=== PATIENT | male | born 1980 | race Caucasian/White ===

== ENCOUNTER 2024-05-06 21:31 | Emergency (ER) | payer OTHER, SELFPAY ==
[2024-05-06 21:40] VITALS: BP 120/76; PULSE 98; RESP 16; TEMP 36.7; O2SAT 98; BMI 34.2
[2024-05-06 22:00] VITALS: BP 129/91; PULSE 88; O2SAT 97
--- NOTE | 2024-05-06 22:17 | HMH.EDGENADL ---
Discharge Plan Disposition Patient Disposition: Home, Self-Care Chief Complaint: Skin/Abscess/Foreign Body Prescriptions Prescriptions: No Action metformin 500 mg tablet 500 mg PO BID 30 Days Qty: 60 Patient Comments: indomethacin 50 mg capsule 50 mg PO TID Qty: 60 0RF Rx Instructions: administer with food or milk. Take Medication until symptoms resolve. Referrals Follow up/Referrals: Provider,Referral, [Primary Care Provider] - See instructions Josy West DPM [Staff Physician] - See instructions Activity Restrictions/Add. Instructions Additional Instructions/Restrictions: Call your family doctor to establish care for this visit to the emergency department and schedule follow-up within 48 hours to ensure improvement. If you have any worsening of your condition or any other concerning signs or symptoms, return to the emergency department or your primary care doctor for further evaluation. Follow-up with Dr. West for your foot. Clinical Impressions Clinical Impression: Injury of foot, left Instructions Patient Instructions: DI for Skin Abscess Print Language Print Language: Venezuelan Discharge ED Provider: Levi Weinstein General Adult HPI General Chief complaint: Skin/Abscess/Foreign Body Stated complaint: AO 10-9 left foot cut Time Seen by Provider: 05/06/24 21:36 Mode of Arrival: Ambulatory Source of Information: Patient Limitations: No Limitations Description of Symptoms (Recalled from ER Triage Doc. by RN): Patient report on Wednesday night he was walking in the house. Hit foot on bed post, Small open area to bottom of 4 th toe. States increase pain today History of Present Illness HPI narrative: Please note that above description of symptoms, in this electronic medical record under categorization of recalled from ER triage doctor by RN are reflective of an initial nursing assessment, however, is not reflective of my full history and physical exam that was personally taken and clarified. Consequentially, this preceding description of symptoms, which may include the patient's categorized chief complaint in the EMR, do not reflect my personal clinical impression, and the ultimate description of history of present illness and patient stated complaints should be deferred to this section of the note. Unless stated otherwise or congruent with this section of the note, additional signs, symptoms, or incongruence should be interpreted as inaccurate with my clinical impression. Related Data Home Medications ?Medication ?Instructions ?Recorded ?Confirmed metformin 500 mg tablet 500 mg PO BID 30 days #60 tabs 11/13/17 Previous Rx's ?Medication ?Instructions ?Recorded indomethacin 50 mg capsule 50 mg PO TID #60 caps 11/13/17 Allergies Allergy/AdvReac Type Severity Reaction Status Date / Time No Known Allergies Allergy Unverified 11/13/17 10:46 [facility] Disclaimer: The information contained in this section may have been updated after the patient was seen, as this information can be updated by other users. Social History Smoking Status: Never smoker alcohol intake: never substance use type: denies use current occupational status: employed Travel in the last 8 weeks: None Other Medical History Have you received the Flu Vaccine for this season: Yes ROS Obtained: Yes All systems reviewed & no additional complaints except as documented Physical Exam General General appearance: alert and in no apparent distress Head Head exam: atraumatic and normocephalic Eye Eye exam: Present normal appearance, PERRL and EOMI Neck Neck exam: Present normal inspection, full ROM and trachea midline Respiratory Respiratory exam: Absent respiratory distress, wheezes, stridor, accessory muscle use or prolonged expiratory phase Cardiovascular Cardiovascular exam: Present other (Pulses equal symmetric in upper and lower extremities) Abdominal Exam Abdominal exam: Present soft; Absent distention, tenderness or pulsatile mass Extremities Exam Extremities exam: Present other (Per MDM) Neurological Exam Neurological exam: Present alert, oriented X3 and CN II-XII intact; Absent motor sensory deficit Skin Skin exam: Present warm and dry; Absent diaphoresis or erythema Medical Decision Making Medical Records Medical records reviewed: Yes I reviewed the patient's medical records. Screening: Per USPSTF and CDC recommendations, given the prevalence of disease in our region, it is our hospital?s policy to screen for HIV and viral Hepatitis for all patients aged 18 and over and those with ongoing risk factors. Chris Inquiry Pt receiving controlled substance: No Chris was queried for this patient: No Vital Signs: 05/06/24 21:40 05/06/24 22:00 Temperature 98.1 F Temperature Source Oral Pulse Rate 88 Pulse Rate [Right Brachial] 98 H Respiratory Rate 16 Blood Pressure 129/91 H Blood Pressure [Right Arm] 120/76 Blood Pressure Mean 103 Blood Pressure Mean [Right Arm] 90 Blood Pressure Source [Right Arm] Automatic Cuff Blood Pressure Position [Right Arm] Sitting 02 Sat by Pulse Oximetry 98 97 Oxygen Delivery Method Room Air Orders (Tests/Meds): ED MEDICATIONS Discontinued Medications Generic Name Dose Route Start Last Admin Trade Name Freq PRN Reason Stop Dose Admin Tetanus/Reduced Diphtheria/Acell Pertussis 0.5 ml 05/06/24 22:06 05/06/24 22:18 Tet/Diphth/Pert-Adult 0.5ml Syringe IM 05/06/24 22:07 0.5 ml .ONCE ONE Administration ORDERS Category Date Time Status Foot XR left minimum 3 views [XR foot LT min 3V] Stat Exams 05/06/24 22:35 Taken Medical Decision Narrative: 44-year-old male history of diabetes and hypertension presenting with injury to left foot. Patient states that a few days prior to this, he had a metal shaving at work going to the plantar surface of his left foot at the base of his fourth toe. Immediate pain at that time. Was able to pull it out with tweezers. Still having pain in the area, open wound, came in for further evaluation. No systemic signs or symptoms, any other injuries. Tetanus not up-to-date. History was obtained via conversation with patient and . On arrival, patient hemodynamically stable, alert, oriented x4, appropriate, GCS 15, moving all extremities spontaneously, pupils equal and reactive to light. Full physical exam performed and significant for very well-appearing male who is in no acute distress. He does have 3 mm superficial skin abrasion plantar aspect of left fourth toe. No evidence of surrounding erythema, edema, drainage, purulence, or other signs of infection.. Differential includes superficial skin injury, foreign body, among others. Patient was given tetanus vaccination IM. Wound was cleaned out, dressed with Xeroform dressing. Wound dressing supplies were supplied to patient and . Information for Dr. West for follow-up podiatry was provided. Because patient at baseline without signs or symptoms of clinical decompensation, deemed appropriate for discharge. Results were relayed to patient who voiced understanding and were agreeable to outpatient management and follow up. I discussed my clinical impression with patient and answered all questions. At this time, the evidence for any other entities in the differential is insufficient to warrant any further testing or ED observation. This was explained as well. Advisory was given that persistent or worsening symptoms require further evaluation. I confirmed the understanding of this discussion. Rough Carpenter disclaimer Much of this encounter note is an electronic medical transcription supervisor spoken language to printed text. Electronic medical transcription supervisor of the spoken language may permit errors. Although I have reviewed the note, some errors may still exist. Critical Care Critical Care Time Critical Care Time: No
[2024-05-06] MEDS: TET/DIPHTH/PERT-ADULT 0.5ML SYRINGE 0.5 ML IM (22:18)
[2024-05-06 22:30] VITALS: BP 122/79; PULSE 86; O2SAT 96
--- NOTE | 2024-05-06 22:35 | XR_ITS ---
PROCEDURE INFORMATION: Exam: XR Left Foot Exam date and time: 05/06/2024 10:33 PM Age: 44 years old Clinical indication: Pain; Foot; Left; Additional info: Injury TECHNIQUE: Imaging protocol: Radiologic exam of the left foot. Views: 3 or more views. COMPARISON: No relevant prior studies available. FINDINGS: Bones/joints: No acute fracture or malalignment. Calcaneal Achilles enthesopathy. Soft tissues: Unremarkable. IMPRESSION: No acute osseous findings.
[2024-05-06 23:25] VITALS: BP 114/70; PULSE 75; RESP 18; TEMP 36.7; O2SAT 94
== END 2024-05-06 23:26 | disposition home or self-care (01) ==
PROVIDERS: Emergency Provider Emergency Medicine
DX: S99.922A Unspecified injury of left foot, initial encounter (principal); M79.672 Pain in left foot; Z23 Encounter for immunization; W18.49XA Other slipping, tripping and stumbling without falling, initial encounter; Y93.9 Activity, unspecified; Y92.9 Unspecified place or not applicable
CPT/HCPCS: 73630; 90471; 90715; 99283

== ENCOUNTER 2024-10-21 10:33 | Emergency (ER) | payer BC, SELFPAY ==
--- NOTE | 2024-10-21 10:34 | ECG_ITS ---
APPROVED REPORT Exam: Resting ECG HR:81 bpm ECG Measurements Heart Rate 81 AXES AR 140 P 53 QRSd 94 QRS 60 QT 349 T 57 QTc 387 Conclusion SINUS RHYTHM Electronically signed by : INESSA LOPEZ, 10/21/2024 12:35:09
[2024-10-21 10:38] VITALS: BP 132/89; PULSE 95; RESP 16; TEMP 37.1; O2SAT 96; BMI 34.2
--- NOTE | 2024-10-21 10:53 | XR_ITS ---
PROCEDURE INFORMATION: Exam: XR Chest Exam date and time: 10/21/2024 10:59 AM Age: 44 years old Clinical indication: Pain; Other: L parasternal cp TECHNIQUE: Imaging protocol: Radiologic exam of the chest. Views: 1 view. Total images: 1 COMPARISON: No relevant prior studies available. FINDINGS: Lungs: Atelectatic changes noted within both lung bases. No focal pneumonia. Pleural spaces: Unremarkable. No pleural effusion. No pneumothorax. Heart/Mediastinum: The heart is not enlarged. Bones/joints: There is evidence of prior median sternotomy. The thoracic spine demonstrates mild degenerative changes at multiple levels. IMPRESSION: 1. Atelectatic changes noted within both lung bases. 2. No focal pneumonia.
[2024-10-21] MEDS: KETOROLAC 30MG/ML VIAL 15 MG IV (10:55)
[2024-10-21 11:00] VITALS: BP 130/87; PULSE 89; RESP 20; O2SAT 94
[2024-10-21 11:01] LABS: Albumin Level 4.5 g/dl (3.5-5.0); Chloride 98 mmol/L (98-107); Potassium 4.1 mmoL/L (3.5-5.1); Sodium 138 mmol/L (136-145)
[2024-10-21 11:04] LABS: Alanine Aminotransferase 75 U/L (12-78); Albumin/Globulin Ratio 1.4 (1.1-1.8); Alkaline Phosphatase 73 U/L (38-126); Anion Gap 14.1 mEq/L (5-15); Aspartate Amino Transferase 67 U/L (17-59); Basophils # 0.1 K/mm3 (0-0.2); Basophils % 0.6 % (0.1-2.0); Blood Urea Nitrogen 13 mg/dl (9-20); Calcium 10.2 mg/dl (8.4-10.2); Carbon Dioxide 30 mmol/L (22.0-30.0); Creatinine Clearance Estimated 181 mL/min (50-200); Eosinophils # 0.2 K/mm3 (0.0-0.4); Eosinophils % 2.1 % (0.1-12.0); Estimated Glomerular Filt Rate 104 ml/min (>60); GFR (African American) 126 ML/MIN (>60); Globulin 3.2 g/dL (1.3-3.2); Glucose 244 mg/dl (74-100); Hematocrit 50.7 % (42.0-52.0); Lymphocytes # 2.5 K/mm3 (0.7-4.5); Lymphocytes % 31.5 % (10-50); Mean Corpuscular HGB Conc 35.7 g/dL (31.8-35.4); Mean Corpuscular Hemoglobin 32.8 pg (27.0-31.2); Mean Corpuscular Volume 91.8 fl (80-94); Monocytes # 0.6 K/mm3 (0.1-1.0); Monocytes % 7.8 % (1.7-9.3); Neutrophils # 4.6 K/mm3 (1.8-7.8); Neutrophils % 57.6 % (37.0-80.0); Platelet Count 219 K/mm3 (142-424); Red Blood Count 5.52 M/mm3 (4.60-6.20); Red Cell Distribution Width 11.8 % (11.5-17.5); Total Protein,Serum 7.7 g/dl (6.3-8.2); White Blood Count 7.9 K/mm3 (4.8-10.8)
--- NOTE | 2024-10-21 11:11 | HMH.EDCP ---
Discharge Plan Disposition Patient Disposition: Home, Self-Care Prescriptions Prescriptions: No Action metformin 500 mg tablet 500 mg PO BID 30 Days Qty: 60 Patient Comments: indomethacin 50 mg capsule 50 mg PO TID Qty: 60 0RF Rx Instructions: administer with food or milk. Take Medication until symptoms resolve. Activity Restrictions/Add. Instructions Additional Instructions/Restrictions: Call your family doctor to establish care for this visit to the emergency department and schedule follow-up within 48 hours to ensure improvement. If you have any worsening of your condition or any other concerning signs or symptoms, return to the emergency department or your primary care doctor for further evaluation. Take Tylenol 1000 mg every 6 hours (4 times daily) and ibuprofen 400 mg every 6 hours (4 times daily) as needed with food and water to prevent GI upset and kidney damage. Clinical Impressions Clinical Impression: Acute chest wall pain Print Language Print Language: Latvian Discharge ED Provider: Levi Weinstein HPI General Chief Complaint: Chest Pain Stated Complaint: chest pain Time Seen by Provider: 10/21/24 10:37 Mode of Arrival: Ambulatory Source of Information: Patient Description of Symptoms (Recalled from ER Triage Doc. by RN): pt presents to ED with c/o chest pain. ongoing for the past few days. pt reports hx of triple bypass. pt reports pain located in left chest. worse with movement, and cough. History of Present Illness HPI narrative: Please note that above description of symptoms, in this electronic medical record under categorization of recalled from ER triage doctor by RN are reflective of an initial nursing assessment, however, is not reflective of my full history and physical exam that was personally taken and clarified. Consequentially, this preceding description of symptoms, which may include the patient's categorized chief complaint in the EMR, do not reflect my personal clinical impression, and the ultimate description of history of present illness and patient stated complaints should be deferred to this section of the note. Unless stated otherwise or congruent with this section of the note, additional signs, symptoms, or incongruence should be interpreted as inaccurate with my clinical impression. Related Data Home Medications ?Medication ?Instructions ?Recorded ?Confirmed metformin 500 mg tablet 500 mg PO BID 30 days #60 tabs 11/13/17 Previous Rx's ?Medication ?Instructions ?Recorded indomethacin 50 mg capsule 50 mg PO TID #60 caps 11/13/17 Allergies Allergy/AdvReac Type Severity Reaction Status Date / Time heparin Allergy blood clot Verified 05/06/24 23:23 [facility] Disclaimer: The information contained in this section may have been updated after the patient was seen, as this information can be updated by other users. Social History (Updated 05/06/24 @ 23:00 by Levi Weinstein MD) Smoking Status: Former smoker alcohol intake: never substance use type: denies use current occupational status: employed Travel in the last 8 weeks: None Other Medical History Have you received the Flu Vaccine for this season: Yes ROS Obtained: Yes All systems reviewed & no additional complaints except as documented Physical Exam General General appearance: alert Neck Neck exam: Present trachea midline Chest Chest inspection: Present normal inspection and symmetric chest wall rise Respiratory Respiratory exam: Present normal lung sounds bilaterally; Absent respiratory distress, wheezes, stridor, accessory muscle use or prolonged expiratory phase Cardiovascular Cardiovascular exam: Present regular rate, normal rhythm and other (Pulses equal and symmetric in upper and lower extremities) Extremities Exam Extremities exam: Absent edema Neurological Exam Neurological exam: Present alert, oriented X3 and CN II-XII intact Skin Skin exam: Present warm and dry; Absent cyanosis, diaphoresis or pallor HEART Score HEART Score HEART Score assessment performed?: Yes History (anamnesis): Slightly suspicious ECG: Normal Age: 45-65 years Risk factors: 3 or more risk factors Troponin: </= normal limit HEART Score: 3 Procedures Limited Ultrasound Indication:: Limited cardiac ultrasound Indication: Chest pain Identified cardiac views: -Cardiac parasternal long axis -Cardiac parasternal short axis Findings: -Cardiac activity present -Gross wall motion normal -Pericardial effusion absent -Right heart strain absent Impression: -Grossly normal cardiac ultrasound without evidence of effusion, or other abnormality. Images were saved to permanent archive The study was technically adequate CPT: 63744 This study was performed by me, and I personally interpreted all images/videos. Based on my clinical judgement, these images were adequate and did not necessitate further imaging Critical Care Critical Care Time Critical Care Time: No Medical Decision Making Medical Records Medical records reviewed: Yes I reviewed the patient's medical records. Chris Inquiry Pt receiving controlled substance: No Chris was queried for this patient: No Vital Signs Vital Signs: 10/21/24 10:38 10/21/24 11:00 10/21/24 11:30 Temperature 98.7 F Temperature Source Oral Pulse Rate 89 83 Pulse Rate [Left Radial] 95 H Respiratory Rate 16 20 19 Blood Pressure 130/87 124/81 Blood Pressure [Right Arm] 132/89 Blood Pressure Mean 102 Blood Pressure Mean [Right Arm] 103 Blood Pressure Source [Right Arm] Automatic Cuff Blood Pressure Position [Right Arm] Supine 02 Sat by Pulse Oximetry 96 94 L 94 L Oxygen Delivery Method Room Air Room Air 10/21/24 12:00 10/21/24 13:01 Temperature 98.7 F Temperature Source Pulse Rate 80 74 Pulse Rate [Left Radial] Respiratory Rate 18 18 Blood Pressure 135/81 115/81 Blood Pressure [Right Arm] Blood Pressure Mean Blood Pressure Mean [Right Arm] Blood Pressure Source [Right Arm] Blood Pressure Position [Right Arm] 02 Sat by Pulse Oximetry 96 Oxygen Delivery Method Room Air Lab Data Labs: Lab Results 10/21/24 10:37: WBC 7.9, RBC 5.52, Hgb 18.1 H, Hct 50.7, MCV 91.8, MCH 32.8 H, MCHC 35.7 H, RDW 11.8, Plt Count 219, MPV 10.0, Neut % (Auto) 57.6, Lymph % (Auto) 31.5, [place] % (Auto) 7.8, Eos % (Auto) 2.1, Baso % (Auto) 0.6, Neut # (Auto) 4.6, Lymph # (Auto) 2.5, [place] # (Auto) 0.6, Eos # (Auto) 0.2, Baso # (Auto) 0.1, Sodium 138, Potassium 4.1, Chloride 98, Carbon Dioxide 30, Anion Gap 14.1, BUN 13, Creatinine 0.80, Estimated Creat Clear 181, Estimated GFR 104, Est GFR ( Amer) 126, Glucose 244 H, Calcium 10.2, Total Bilirubin 1.0, AST 67 H, ALT 75, Alkaline Phosphatase 73, Troponin I < 0.01, NT-Pro-B Natriuret Pep < 20.0, Total Protein 7.7, Albumin 4.5, Globulin 3.2, Albumin/Globulin Ratio 1.4, HCV Ab ITA w/Rflx PCR Qn Negative, HIV Ag/Ab Combo Qual Negative 10/21/24 10:37 10/21/24 10:37 Response Orders (Tests/Meds): ED MEDICATIONS Discontinued Medications Generic Name Dose Route Start Last Admin Trade Name Freq PRN Reason Stop Dose Admin Ketorolac Tromethamine 15 mg 10/21/24 10:53 10/21/24 10:55 Ketorolac 30mg/Ml Vial IV 10/21/24 10:54 15 mg ONCE ONE Administration ORDERS Category Date Time Status CXR --portable [XR chest portable] Stat Exams 10/21/24 10:53 Completed POCUS Point of Care (ER Only) Stat Exams 10/21/24 12:40 Ordered CBC w/Auto Diff [Complete Blood Count Auto Diff] Stat Lab 10/21/24 10:37 Completed CMP [Comprehensive Metabolic Panel] Stat Lab 10/21/24 10:37 Completed HIV Combo Stat Lab 10/21/24 10:37 Completed Hepatitis C Ab Qual. W/ RFX Stat Lab 10/21/24 10:37 Completed NT Pro Brain Natriuretic Pep. Stat Lab 10/21/24 10:37 Completed Trop I [Troponin I] Stat Lab 10/21/24 10:37 Completed Troponin I Q3H Lab 10/21/24 14:00 Ordered Troponin I Q3H Lab 10/21/24 17:00 Ordered MDM Narrative Medical Decision Narrative: This is a 44-year-old male with history of hypertension, hyperlipidemia, diabetes, CAD status post CABG in 2022 presenting with chest wall pain. He states that it started a couple days prior to this, made worse with changes in position as well as certain motions like twisting. Also made worse with direct application of pressure on the left parasternal chest wall. No shortness of breath, nausea, vomiting, palpitations, neurologic deficits, etc. States that this does not feel like cardiac pain, just has not found anything that makes it better. Has also not taken any medications to see if they make it better. History was obtained via conversation with patient. On arrival, patient hemodynamically stable, alert, oriented x4, appropriate, GCS 15, moving all extremities spontaneously, pupils equal and reactive to light. Full physical exam performed and significant for clinically well-appearing male no acute distress. Chest wall is tender with application pressure left parasternal superior to the nipple. Lungs are clear, cardiac exam without murmurs gallops or rubs. No lower extremity edema. Neurologically intact, unremarkable overall. Differential includes microvascular coronary artery disease, CHF, ACS, [place], coronary artery dissection, pneumothorax, PE, dissection, pericarditis, myocarditis, pneumothorax, aortic aneurysm, pneumonia, bronchitis, among others. Patient was given Toradol for symptomatic management and correction of underlying abnormalities. Patient placed on continuous cardiac monitoring and continuous pulse ox with initial blood pressure 132/89, heart rate 95, saturation 96% on room air. Independent interpretation of EKG shows sinus rhythm 81 bpm with RI interval 140, QRS 94, QTc 387. Normal axis. No acute ischemic change. Workup independently interpreted and significant for nonactionable CBC, chemistry, troponin, BNP. On independent interpretation of imaging, no acute intrathoracic process. Fractured sternal wire, but no evidence of pneumothorax. See radiology read for full review of final results. Heart score 3. Reevaluation, patient feeling much better, but pain is still there. Bedside [id number] ultrasound performed and demonstrated no acute intrathoracic abnormality. given patient presentation, workup, history, this most likely represents musculoskeletal chest pain. Because patient at baseline without signs or symptoms of clinical decompensation, deemed appropriate for discharge. Results were relayed to patient who voiced understanding and were agreeable to outpatient management and follow up. I discussed my clinical impression with patient and answered all questions. At this time, the evidence for any other entities in the differential is insufficient to warrant any further testing or ED observation. This was explained as well. Advisory was given that persistent or worsening symptoms require further evaluation. I confirmed the understanding of this discussion. Minister Helper disclaimer Much of this encounter note is an electronic ethnic studies professor spoken language to printed text. Electronic ethnic studies professor of the spoken language may permit errors. Although I have reviewed the note, some errors may still exist.
[2024-10-21 11:13] LABS: NT Pro Brain Natriuretic Pep. < 20.0 pg/mL (0-125)
[2024-10-21 11:26] LABS: Troponin I < 0.01 ng/ml (0.00-0.034)
[2024-10-21 11:30] VITALS: BP 124/81; PULSE 83; RESP 19; O2SAT 94
[2024-10-21 11:56] LABS: Hemoglobin 18.1 g/dL (14.1-18.0)
[2024-10-21 12:00] VITALS: BP 135/81; PULSE 80; RESP 18; O2SAT 96
[2024-10-21 12:18] LABS: HIV Combo NEGATIVE (Negative)
[2024-10-21 12:25] LABS: Hepatitis C Ab Qual. W/ RFX NEGATIVE (Negative)
--- NOTE | 2024-10-21 12:42 | PC.NURSE ---
dr estes at bedside with ultrasound
[2024-10-21 13:01] VITALS: BP 115/81; PULSE 74; RESP 18; TEMP 37.1; O2SAT 95
== END 2024-10-21 13:02 | disposition home or self-care (01) ==
PROVIDERS: Emergency Provider Emergency Medicine
DX: R07.89 Other chest pain (principal); I25.10 Atherosclerotic heart disease of native coronary artery without angina pectoris; I10 Essential (primary) hypertension; E78.5 Hyperlipidemia, unspecified; E11.9 Type 2 diabetes mellitus without complications; Z95.1 Presence of aortocoronary bypass graft; Z87.891 Personal history of nicotine dependence; Z88.8 Allergy status to other drugs, medicaments and biological substances
CPT/HCPCS: 71045; 80053; 83880; 84484; 85025; 86803; 87389; 93005; 96374; 99284; J1885

== ENCOUNTER 2025-07-08 15:22 | Emergency (ER) | payer BC, SELFPAY ==
--- OUTSIDE RECORDS SUMMARY | 2025-06-29 10:45 | XMS_ITS | Encounter Summary ---
[facility] Organization [facility] Address [address] [place] [address] Care Team Providers Care Director Commercial Sales Name Role Phone Maria Teresa Frey BOWLING BALL ENGRAVER Primary Care Provider [phone] Reason for Visit * Reason Comments Nasal Congestion Sore Throat Cough Headache Encounter Details Date Type Department Care Team (Late st Contact Info) Description 06/29/2025 10:45 AM EST Office Visit [facility] [address] [place] [phone] Maria Teresa Frey, BOWLING BALL ENGRAVER [address] [place], [place] [id number] Sore throat (Primary Dx); Influenza A; Mixed hyperlipidemia; Primary hypertension; Type 2 diabetes mellitus with hyperglycemia, without long-term current use of insulin Social History Tobacco Use Types Packs/Day Years Used Date Smoking Tobacco: Never Smokeless Tobacco: Never Alcohol Use Standard Drinks/Week Comments No 0 (1 standard drink = 0.6 oz pur e alcohol) PHQ-2 Answer Date Recorded Retired PHQ-9: Brief Depression Severity Measure Score 0 05/14/2023 PHQ-2 Answer Date Recorded Patient Health Questionnaire-2 Score 0 12/08/2024 Sex and Gender Information Value Date Recorded Sex Assigned at Not on file Legal Sex Male 12:09 PM EDT Gender Identity Not on file Sexual Orientation Not on file documented as of this encounter Last Filed Vital Signs Vital Sign Reading Time Taken Comments Blood Pressure 126/80 06/29/2025 10:41 AM EST Pulse 74 06/29/2025 10:41 AM EST Temperature 37.2 C (98.9 F) 06/29/2025 10:41 AM EST Respiratory Rate 16 06/29/2025 10:41 AM EST Oxygen Saturation 98% 06/29/2025 10:41 AM EST Inhaled Oxygen Concentration - - Weight 112 kg (248 lb) 06/29/2025 10:41 AM EST Height 180.3 cm (5' 11 ) 06/29/2025 10:41 AM EST Body Mass Index 34.59 06/29/2025 10:41 AM EST documented in this encounter Progress Notes * Maria Teresa Frey, BOWLING BALL ENGRAVER - 06/29/2025 10:45 AM EST Images from the original note were not included. Office Note Name: Erich Hudson : 1980 Chief Complaint Nasal Congestion, Sore Throat, Cough, and Headache Subjective History of Present Illness The patient is a 45-year-old male who presents for evaluation of respiratory symptoms. He began experiencing symptoms on Wednesday, which have remained consistent since their onset. His symptoms include a cough, chest congestion, and expectoration. He reports no ocular discomfort or burning sensation but does experience itching. He had a fever of approximately 100 degrees a few days prior and a temperature of around 99.6 degrees yesterday. He has not been in contact with any known influenza cases. He is uncertain about his influenza vaccination status. His cough is causing a headache and disrupting his sleep. He does not report significant sinus congestion but does experience mildwheezing. Despite his symptoms, he has continued to work. He attempted self-medication with DayQuily. He monitors his blood glucose levels at work, which remain in the 200s even when he abstains from eating. He has been experiencing issues with his Ozempic prescription at [facility]. MEDICATIONS CURRENT MEDS: Ozempic Objective Past Medical History: Diagnosis Date Allergic Diabetes mellitus Gout Heart attack May 2019 Hyperlipidemia Hypertension Past Surgical History: Procedure Laterality Date ANKLE FUSION Right CARDIAC CATHETERIZATION EYE SURGERY Family History Problem Relation Name Age of Onset Diabetes Mother No Known Problems Father Cancer Maternal Grandfather lung Heart disease Maternal Grandfather Vital Signs BP 126/80 (BP Location: Left arm, Patient Position: Sitting, Cuff Size: Adult) Pulse 74 Temp 98.9 ??F (37.2 ??C) (Temporal) Resp 16 Ht 180.3 cm (71 ) Wt 112 kg (248 lb) SpO2 98% BMI 34.59 kg/m?? Estimated body mass index is 34.59 kg/m?? as calculated from the following: Height as of this encounter: 180.3 cm (71 ). Weight as of this encounter: 112 kg (248 lb). Facility age limit for growth %stella is 20 years. Physical Exam Vitals reviewed. Constitutional: Appearance: He is ill-appearing. HENT: Head: Normocephalic and atraumatic. Right Ear: Tympanic membrane, ear canal and external ear normal. Left Ear: Tympanic membrane, ear canal and external ear normal. Mouth/Throat: Pharynx: Posterior oropharyngeal erythema present. Eyes: Conjunctiva/sclera: Conjunctivae normal. Cardiovascular: Rate and Rhythm: Normal rate and regular rhythm. Pulmonary: Effort: Pulmonary effort is normal. No respiratory distress. Breath sounds: Wheezing present. Musculoskeletal: Cervical back: Neck supple. Skin: General: Skin is warm and dry. Neurological: Mental Status: He is alert and oriented to person, place, and time. POCT Results (if applicable): Results for orders placed or performed in visit on 06/29/25 Covid-19 + Flu A&B AG, Veritor Collection Time: 06/29/25 10:56 AM Specimen: Swab Result Value Ref Range SARS Antigen Not Detected Not Detected, Presumptive Negative Influenza A Antigen CONCETTA Detected (A) Not Detected Influenza B Antigen CONCETTA Not Detected Not Detected Internal Control Passed Passed Lot Number [id number] Expiration Date Assessment and Plan Diagnoses and all orders for this visit: 1. Sore throat (Primary) - Covid-19 + Flu A&B AG, Veritor 2. Influenza A - methylPREDNISolone (MEDROL) 4 MG dose pack; Take as directed on package instructions. Dispense: 21 tablet; Refill: 0 - promethazine-dextromethorphan (PROMETHAZINE-DM) 6.25-15 MG/5ML syrup; Take 5 mL by mouth 4 (Four)Times a Day As Needed for Cough. Dispense: 180 mL; Refill: 0 3. Mixed hyperlipidemia - atorvastatin (LIPITOR) 10 MG tablet; Take 1 tablet by mouth Daily. Dispense: 90 tablet; Refill: 2 4. Primary hypertension 5. Type 2 diabetes mellitus with hyperglycemia, without long-term current use of insulin Assessment & Plan 1. Influenza. Symptoms include cough, chest congestion, and mild wheezing, which started on Wednesday. The patient has taken DayQuil with no improvement. He is testing positive for influenza A, negative for COVID in office today. Discussed viral nature of influenza which would not require antibiotic at this time. A prescription for promethazine DM cough syrup, to be taken at a dosage of 5 mL four times daily as needed, has been provided. Additionally, a Medrol Dosepak for prednisone has been prescribed to alleviate chest inflammation caused by persistent coughing. He is advised to maintain adequate hydration and rest over the weekend. Ibuprofen may be used to manage any associated headaches. 2. Diabetes mellitus. The patient reports blood sugar levels in the 200s even when not eating. He is currently on Ozempicbut has experienced issues with obtaining it from the pharmacy. It was discussed that blood sugar levels might be slightly elevated while on steroids. A refill for Ozempic will be sent to the pharmacy. Patient advised to make follow-up appointment for recheck on A1c after he has been able to obtainhis Ozempic and take consistently for 4 to 6 weeks 3. Hyperlipidemia Patient requesting refills for his atorvastatin 10 mg daily 4. Hypertension Blood pressure remains well-controlled on current medications, 126/80 in office today. Continue current regimen of metoprolol XL 50 mg daily Follow Up No follow-ups on file. Patient or patient inside account representative verbalized consent for the use of Ambient Listening during the visit with Maria Teresa Frey APRN for chart documentation. 06/29/2025 17:42 EST Maria Teresa Frey APRN documented in this encounter Plan of Treatment Not on file documented as of this encounter Procedures Procedure Name Priority Date/Time Associated Diagnosis Comments COVID-19 + FLU A&B AG, VERITOR Routine 06/29/2025 10:56 AM EST Sore throat documented in this encounter Results * (ABNORMAL) Covid-19 + Flu A&B AG, Veritor (06/29/2025 10:56 AM EST) SARS Antigen Not Detected Not Detected, Presumptive Negative Influenza A Antigen CONCETTA Detected(A) Not Detected Influenza B Antigen CONCETTA Not Detected Not Detected Internal Control Passed Passed Lot Number [id number] Expiration Date Swab 06/29/2025 10:5 6 AM EST Maria Teresa Frey BOWLING BALL ENGRAVER POINT OF CARE TEST ORDERABL ES Final Result documented in this encounter Visit Diagnoses Diagnosis Sore throat- Primary Acute pharyngitis Influenza A Influenza with other respiratory manifestations Mixed hyperlipidemia Primary hypertension Unspecified essential hypertension Type 2 diabetes mellitus with hyperglycemia, without long-term current use of insulin documented in this encounter Additional Health Concerns Infection Onset Date Last Indicated Resolved Time COVID (rule out) 06/29/2025 06/29/2025 06/29/2025 11:01 AM EST Influenza 06/29/2025 06/29/2025 documented as of this encounter Care Teams Director Commercial Sales Relationship Specialty Start Date End Date Maria Teresa Frey, BOWLING BALL ENGRAVER [address] [place], [place] [id number] PCP - General Family Medicine 12/08/24 documented as of this encounter
[2025-07-08 15:30] VITALS: BP 136/70; PULSE 104; RESP 20; TEMP 36.9; O2SAT 95; BMI 32.8
[2025-07-08 15:41] LABS: Coronavirus 19, PCR Not Detected (NotDetected); Influenza A, PCR Not Detected (NotDetected); Influenza B, PCR Not Detected (NotDetected)
--- NOTE | 2025-07-08 15:45 | XR_ITS ---
PROCEDURE INFORMATION: Exam: XR Chest Exam date and time: 07/08/2025 3:58 PM Age: 45 years old Clinical indication: Pain; Cough; Right-sided; Additional info: Right sided chest pain, cough TECHNIQUE: Imaging protocol: Radiologic exam of the chest. Views: 2 views. COMPARISON: CR XR CHEST PORTABLE 10/21/2024 10:59 AM FINDINGS: Tubes, catheters and devices: Sternal wires are present. Lungs: New mild opacity of the lateral upper right lung concerning for infiltrate/pneumonia. Pleural spaces: Unremarkable. No gross pleural effusion. No pneumothorax. Heart/Mediastinum: Unremarkable. No cardiomegaly. Bones/joints: Unremarkable. IMPRESSION: New mild opacity of the lateral upper right lung concerning for infiltrate/pneumonia.
--- OUTSIDE RECORDS SUMMARY | 2025-07-08 15:54 | XMS_ITS | Encounter Summary ---
Author Organization [employer] ([place], [place], [place], [place], [place]) Address [address] [place] [address] Care Team Providers Care Filler Mixer Name Role Phone Unavailable Primary Care Provider Unavailabl e Encounter Details Date Type Department Care Team (Late st Contact Info) Description 06/19/2019 Transcribed Document [facility] Family Medicine [address] [place] [address] ProviderLayton MD [facility] [place] [id number] Social History Tobacco Use Types Packs/Day Years Used Date Smoking Tobacco: Never Assessed Sex and Gender Information Value Date Recorded Sex Assigned at Not on file Legal Sex Male 6:48 PM CDT Gender Identity Not on file Sexual Orientation Not on file documented as of this encounter Miscellaneous Notes * Cerner Conversion Note - Layton ProviderMD - 06/19/2019 12:17 PM LUMBER LOADER UM Authorization Entered On: 06/19/2019 12:18 EST Performed On: 06/19/2019 12:17 EST by NIKOLE AVILES RN-Utilization Review Primary Insurance Authorization Authorization and Policy Numbers : Insurance 1 Health Plan: [employer] Policy Number: [id number] Authorization Number: Insurance Primary Name : [employer] Policy Number: [id number] Authorization Status-Primary : Awaiting callback Reference Number-Primary : [id number] Historical Authorization Comments-Primary : Comment 1: Clinicals submitted via availity for Ip approval, em to [place] and [place] to change the status to IP (ANNALISA CORTEZ RN 06/17/2019 14:50) NIKOLE AVILES RN-Utilization Review - 06/19/2019 12:17 EST Electronically signed by Madina, [facility] Conversion Cloth Pattern Maker Cerner at 11/09/2022 12:53 PM CDT documented in this encounter Plan of Treatment Not on file documented as of this encounter Visit Diagnoses Not on filedocumented in this encounter
--- OUTSIDE RECORDS SUMMARY | 2025-07-08 15:54 | XMS_ITS | Encounter Summary ---
Author Organization [employer] [facility] ([place], [place], [place], [place], [place]) Address [address] [place] [address] Care Team Providers Care Joinery Machinist Name Role Phone Unavailable Primary Care Provider Unavailabl e Encounter Details Date Type Department Care Team (Late st Contact Info) Description 06/27/2019 Transcribed Document [facility] Family [place] [facility] [address] ProviderLayton MD [facility] [place], [place] [id number] Social History Tobacco Use Types Packs/Day Years Used Date Smoking Tobacco: Never Assessed Sex and Gender Information Value Date Recorded Sex Assigned at Not on file Legal Sex Male 6:48 PM CDT Gender Identity Not on file Sexual Orientation Not on file documented as of this encounter Miscellaneous Notes * Cerner Conversion Note - Historical ProviderMD - 06/27/2019 9:05 PM GENERATION MANAGER Electronically signed by Madina [facility] Conversion Car Salesperson Cerner at 11/09/2022 12:56 PM CDT documented in this encounter Plan of Treatment Not on file documented as of this encounter Visit Diagnoses Not on filedocumented in this encounter
--- OUTSIDE RECORDS SUMMARY | 2025-07-08 15:54 | XMS_ITS | Encounter Summary ---
Author Organization [employer] ([place], [place], [place], [place], [place]) Address [address] [place] [address] Care Team Providers Care Sourcing Coordinator Name Role Phone Unavailable Primary Care Provider Unavailabl e Encounter Details Date Type Department Care Team (Late st Contact Info) Description 06/27/2019 Transcribed Document [facility] [place] [address] [place] [address] ProviderLayton MD [address] [place] [address] Social History Tobacco Use Types Packs/Day Years Used Date Smoking Tobacco: Never Assessed Sex and Gender Information Value Date Recorded Sex Assigned at Not on file Legal Sex Male 6:48 PM CDT Gender Identity Not on file Sexual Orientation Not on file documented as of this encounter Miscellaneous Notes * Cerner Conversion Note - Layton Singh MD - 06/27/2019 9:35 PM [employer] [facility] [place] [address] JEREMIE ERICH Betsy :1980 Visit Time:06/27/2019 Your Visit Summary Your Care Team Primary Provider: HALI BEY PA-C Secondary Provider: Your Diagnosis Chest pain Chest wall pain Medical Information You may obtain a copy of your Emergency Department visit from Medical Records by calling the hospital phone number listed above and asking to be directed to the Medical Records Department. If you had special tests, such as EKG???s or X-rays, the interpretation of your tests given to you by the Emergency Department Physician is a preliminary report. Some fractures and illnesses fail to show up on preliminary tests. These will be reviewed again and we will call you if there are any new suggestions. If your symptoms continue notify your physician. After you leave, you should follow the instructions provided. What to do next Follow-Up Appointments Follow Up with RENETTA GILLIS When Within 2 days Comments Continue medications as prescribed, see cardiology on Wednesday as scheduled, return to the emergency department with any new or worsening symptoms. Where: [address] [facility] [address] [place] [address]- Business (1) Follow Up with LUANN MENJIVAR When Within 2 to 3 days Where: [address] [facility] [address] [place] [address]- Allergies No Known Allergies Immunizations This Visit No Immunizations Found Medications What How Much When Instructions Next Dose The home medications listed are only as accurate as the information you provided. Please continue taking all of your medications prescribed by your Primary Care Provider unless specifically told to change or discontinue the medication. Please direct any questions regarding your home medications to your Primary Care Provider. Take your medications faithfully. Do NOT skip medication. Do NOT stop taking medications without the direction of a physician. Carry a list of your medications with you at all times, and take this medication list with you to your first follow up visit. Report any side effects. Avoid herbal remedies unless discussed with your physician. As part of your treatment plan, your physician may have prescribed a limited course of a controlled substance. This medication may be given to help people with moderate or severe pain or for other medical conditions, but there are risks involved with treatment. Common side effects may include nausea, constipation, drowsiness, sweating, itching, dry mouth, and rash. More serious side effects may include cognitive and motor impairment, like problems with thinking, concentrating, alertness, and movement (e.g. slowed reflexes), and driving and operating heavy machinery can be dangerous. It is important for you to talk to your physician if you have these side effects or questions. These controlled substances can produce physical dependence and be habit-forming if taken for an extended period of time, which means that the body has gotten used to them and may experience withdrawal symptoms if they are abruptly stopped. Withdrawal symptoms can include runny nose, sweating, goose bumps, diarrhea, abdominal cramping, rapid heartbeat, difficulty sleeping, and nervousness. Please dispose of unused and medications per pharmacy guidance. Test Results Laboratory or Other Results This Visit (last charted value for your 06/27/2019 visit) Hematology 06/27/2019 2:45 PM WBC: 9.8 K/uL -- Normal range between ( 3.6 and 9.5 ) RBC: 4.74 Million/uL -- Normal range between ( 4.20 and 5.70 ) Hct: 44.5 % -- Normal range between ( 40.1 and 51.0 ) Hgb: 15.7 g/dL -- Normal range between ( 13.7 and 17.5 ) Platelet Count: 272 K/uL -- Normal range between ( 163 and 369 ) MCH: 33.1 pg -- Normal range between ( 25.6 and 32.2 ) MCHC: 35.3 Gram/dL -- Normal range between ( 31.5 and 35.7 ) MCV: 93.9 fL -- Normal range between ( 79.0 and 94.8 ) Slide Review: No Eos %: 2.2 % -- Normal range between ( 0.0 and 7.0 ) [place] #: 0.71 K/uL -- Normal range between ( 0.16 and 1.00 ) Eos #: 0.21 -- Normal range between ( 0.00 and 5.00 ) [place] %: 7.3 % -- Normal range between ( 3.5 and 11.1 ) Baso %: 0.3 % -- Normal range between ( 0.0 and 2.0 ) Baso #: 0.03 -- Normal range between ( 0.00 and 2.00 ) RDW: 12.1 % -- Normal range between ( 11.7 and 14.9 ) Neut %: 58.8 % -- Normal range between ( 34.0 and 71.0 ) Neut #: 5.75 K/uL -- Normal range between ( 1.60 and 7.00 ) Lymph %: 31.4 % -- Normal range between ( 19.3 and 53.1 ) Lymph #: 3.06 K/uL -- Normal range between ( 1.00 and 3.50 ) MPV: 9.7 fL -- Normal range between ( 9.4 and 12.4 ) Urinalysis 06/27/2019 2:45 PM Urine Nitrite: Negative Urine Leukocyte Esterase: Negative Urine Appearance: Clear Urine Glucose Dipstick: Negative Urine Blood Dipstick: Negative Urine Urobilinogen Dipstick: 1.0 EU/dL Urine Protein Dipstick: Negative Urine Color: Yellow Ur WBC: 0-2 /HPF Urine Ketones Dipstick: Negative Urine pH Dipstick: 5.5 -- Normal range between ( 6.0 and 8.0 ) Urine Bilirubin Dipstick: Negative Urine Specific [place]: 1.023 -- Normal range between ( 1.005 and 1.030 ) Urine Type.: U [facility] General Chemistry 06/27/2019 2:45 PM Creatinine Level: 1.10 mg/dL -- Normal range between ( 0.70 and 1.30 ) Sodium Level: 138 mmol/L -- Normal range between ( 136 and 146 ) Potassium Level: 3.7 mmol/L -- Normal range between ( 3.5 and 5.1 ) Chloride Level: 104 mmol/L -- Normal range between ( 102 and 112 ) Carbon Dioxide Level: 30 mmol/L -- Normal range between ( 21 and 32 ) Anion Gap: 8 -- Normal range between ( 9 and 20 ) Bilirubin Total: 0.5 mg/dL -- Normal range between ( 0.2 and 1.2 ) A/G Ratio: 1.1 -- Normal range between ( 1.1 and 2.5 ) ALT: 60 Units/Liter -- Normal range between ( 16 and 61 ) AST: 39 Units/Liter -- Normal range between ( 5 and 37 ) Globulin: 3.7 Gram/dL -- Normal range between ( 1.5 and 4.5 ) Alk Phos: 75 Units/Liter -- Normal range between ( 27 and 136 ) Bun/Creatinine: 13.6 -- Normal range between ( 8.0 and 20.0 ) Calcium Level: 9.2 mg/dL -- Normal range between ( 8.4 and 10.1 ) eGFR : >60 mL/min/1.73m2 eGFR NonAfrican: >60 mL/min/1.73m2 Glucose Level: 105 mg/dL -- Normal range between ( 74 and 106 ) Blood Urea Nitrogen: 15 mg/dL -- Normal range between ( 7 and 22 ) Protein Total: 7.6 Gram/dL -- Normal range between ( 6.4 and 8.2 ) Albumin Level: 3.9 Gram/dL -- Normal range between ( 3.4 and 5.0 ) Cardiac Specific Markers 06/27/2019 7:24 PM Troponin I Ultra: <0.015 ng/mL -- Normal range between ( 0.015 and 0.045 ) Diagnostic Radiology 06/27/2019 2:55 PM CR Chest 2 Vws: CR Chest 2 Vws Education Materials Chest Wall Pain Chest wall pain is pain in or around the bones and muscles of your chest. Sometimes, an injury causes this pain. Sometimes, the cause may not be known. This pain may take several weeks or longer to get better. Follow these instructions at home: Pay attention to any changes in your symptoms. Take these actions to help with your pain: ??? Rest as told by your health care provider. ??? Avoid activities that cause pain. These include any activities that use your chest muscles or your abdominal and side muscles to lift heavy items. ??? If directed, apply ice to the painful area: ? Put ice in a plastic bag. ? Place a towel between your skin and the bag. ? Leave the ice on for 20 minutes, 2???3 times per day. ??? Take izzp-joe-hoyhexq and prescription medicines only as told by your health care provider. ??? Do not use tobacco products, including cigarettes, chewing tobacco, and e-cigarettes. If you need help quitting, ask your health care provider. ??? Keep all follow-up visits as told by your health care provider. This is important. Contact a health care provider if: ??? You have a fever. ??? Your chest pain becomes worse. ??? You have new symptoms. Get help right away if: ??? You have nausea or vomiting. ??? You feel sweaty or light-headed. ??? You have a cough with phlegm (sputum) or you cough up blood. ??? You develop shortness of breath. This information is not intended to replace advice given to you by your health care provider. Make sure you discuss any questions you have with your health care provider. Document Released: 07/12/2006 Document Revised: 11/19/2016 Document Reviewed: 10/07/2015 [employer]. Interactive Patient Education ?? 2019 [employer] Emergency Awareness and Preventative Care STROKE is an EMERGENCY Every Minute Counts Act FAST and Check for these signs: FACE Does the face look uneven? ARM Does one arm drift down? SPEECH Does their speech sound strange? TIME Call at any sign of stroke Stroke Risk Factors Atrial Fibrillation (irregular heartbeat) Diabetes Family history of stroke Heart Disease Heavy alcohol use High Blood Pressure High Cholesterol Physical inactivity and obesity Smoking Cigarette Smoking The facts are clear, cigarette smoking will shorten your life. Smoking can cause many illnesses along the way. As a healthcare provider, we recommend that you stop smoking. Assistance with quitting is available by contacting 3-087-VKZPNOW. This is a free resource providing counseling, support, and referral. Or you may contact your personal physician. [place] Suicide Prevention Lifeline: The National Suicide Prevention Lifeline is a national network of local crisis centers that provides free and confidential emotional support to people in suicidal crisis or emotional distress 24 hours a day, 7 days a week. Don't Wait! Stop a Heart Attack Before it Starts What is a heart attack? A heart attack is damage or to a part of the heart from severely decreased or lack of blood flow to the heart. Over time, arteries can become narrow from the buildup of fat and cholesterol, which is called plaque. The plaque can rupture causing a blood clot to form. When the blood clot forms, the artery can become severely narrowed or completely blocked, causing a heart attack. Heart attack is the leading cause of in the [place]. 85% of muscle damage occurs within the first 2 hours. Delay in the recognition of heart attack symptoms increases the chances of . Know the early symptoms of a heart attack: Nausea Feeling of fullness in chest Jaw Pain Pain that travels down one or both arms Fatigue/being tired Anxiety Back Pain Chest pressure, squeezing, or discomfort Shortness of breath Sweating, or a cold sweat Feeling of impending doom There are unusual signs of a heart attack, too! Women, the elderly, and diabetics may present with atypical symptoms: Fainting/dizziness Weakness Confusion Risk Factors for a Heart Attack Some heart disease risk factors, such as age and family history, cannot be changed. Others, like smoking and lack of exercise, can be changed. Smoking High Cholesterol High Blood Pressure Family History Obesity Age Gender (Males are at higher risk) Lack of Exercise Diabetes Diet Stress Excessive Alcohol Intake If you or someone you know is experiencing the signs and symptoms of a heart attack, DON???T DELAY. Call immediately and seek help. If someone collapses, perform CPR! Do not attempt to drive if you are having symptoms of heart attack. Hands-Only CPR Why Hands-Only CPR? Hands-Only CPR has been shown to be as effective as conventional CPR for cardiac arrests that occur outside of a hospital. Survival depends on immediately receiving CPR from someone nearby. How do you perform Hands-Only CPR? There are two easy steps: Call 9-1-1 if you see a teen or adult collapse Push hard and fast in the center of the chest at a beat of 100 beats per minute. Save a life! 4 WAYS TO GET AHEAD OF SEPSIS SEPSIS is a MEDICAL EMERGENCY. Time matters! Infections put you and your family at risk for a life-threatening condition called sepsis. Sepsis is the body's extreme response to an infection. It is life-threatening, and without timely treatment, sepsis can rapidly lead to tissue damage, organ failure, and . Sepsis happens when an infection you already have-in your skin, lungs, urinary tract or somewhere else-triggers a chain reaction throughout your body. 1 PREVENT INFECTIONS Take good care of chronic conditions. Talk to your doctor about getting the recommended vaccines. 2 PRACTICE GOOD HYGIENE Wash your hands frequently. Keep cuts or open sores clean and covered until they are healed. 3 KNOW THE SYMPTOMS Confusion or disorientation Shortness of breath High heart rate Fever, shivering, or feeling very cold Extreme pain or discomfort Clammy or sweaty skin 4 ACT FAST Get medical care IMMEDIATELY if you suspect sepsis or if you have an infection that is not getting better or is getting worse. To learn more about sepsis and how to prevent infections, visit www.cdc.gov/sepsis. The examination and treatment you have received in the Emergency Department has been done to provide an appropriate evaluation and stabilizing treatment on an emergency basis only. Given the limited resources, it is not meant to be a substitute for complete medical care. The follow-up doctor you named will receive a copy of your records and all test reports. IT IS IMPORTANT THAT YOU SCHEDULE A FOLLOW-UP APPOINTMENT AND ARE RE-EVALUATED. You should report any new complaints, symptoms, or remaining problems at that time. IT IS IMPOSSIBLE FOR THE EMERGENCY DEPARTMENT TO RECOGNIZE AND TREAT ALL ELEMENTS OF INJURY OR ILLNESS IN A SINGLE VISIT. If you have been referred to a specialist physician, it means that we believe you may have a condition that requires the expertise of a specialist. These physicians work in partnership with the hospital and have agreed to see referred patients in their office for further evaluation. KEEP IN MIND THAT THE SPECIALIST HAS HIS/HER OWN OFFICE POLICIES WHICH MAY REQUIRE PROPER INSURANCE OR PAYMENT UP FRONT BEFORE THE SPECIALIST WILL SEE YOU. It is your responsibility to call the specialist physician to make an appointment. We do not have the ability to refer patients to specialists/physicians that work with specific insurance companies. Please be advised that all financial charges or billing practices are determined by that practice, not the hospital. If your insurance company requires that you see a specialist from their approved list, it is your responsibility to contact your insurance company to make those arrangements. It is also your responsibility to follow any other requirements of your insurance company necessary to obtain coverage for claims submitted. We will bill your insurance; however, you are responsible today for any co-pay amounts. You will receive a separate bill for any services you may have received including: emergency, radiology, or pathology physicians. Patient Name:ERICH CHAO I have received this information and was given the opportunity to ask questions. Patient/Order Picker Name: Patient/Order Picker Signature: Relationship to Patient: Clinician/Hospital Order Picker Signature: Please Provide a Telephone Number Where You Can Be Reached: Is it Permissible To Leave a Message? Date: Electronically signed by Madina, [facility] Conversion Crude Oil Treater Keli at 11/09/2022 12:57 PM CDT documented in this encounter Plan of Treatment Not on file documented as of this encounter Visit Diagnoses Not on filedocumented in this encounter
--- OUTSIDE RECORDS SUMMARY | 2025-07-08 15:54 | XMS_ITS | Encounter Summary ---
Author Organization [employer] ([place], [place], [place], [place], [place]) Address [address] [place] [address] Care Team Providers Care Color Dipper Name Role Phone Unavailable Primary Care Provider Unavailabl e Encounter Details Date Type Department Care Team (Late st Contact Info) Description 06/27/2019 Transcribed Document [facility] [place] [facility] [place] [address] ProviderLayton MD [address] [place] [id number] Social History Tobacco Use Types Packs/Day Years Used Date Smoking Tobacco: Never Assessed Sex and Gender Information Value Date Recorded Sex Assigned at Not on file Legal Sex Male 6:48 PM CDT Gender Identity Not on file Sexual Orientation Not on file documented as of this encounter Miscellaneous Notes * Cerner Conversion Note - Layton ProviderMD - 06/27/2019 1:43 PM 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 ED Triage Entered On: 06/27/2019 14:44 EST Performed On: 06/27/2019 14:38 EST by Ileana Alfred RN ED Triage Across the Room Chief Complaint : c/o chest discomfort, stent placed 1w ago with A[facility]ley; stress test scheduled for Wednesday Triage Date/Time : 06/27/2019 14:38 EST Ileana Alfred RN - 06/27/2019 14:38 EST DCP GENERIC CODE Tracking Acuity : 3 - Urgent Tracking Group : [facility] ED Ileana Alfred RN - 06/27/2019 14:38 EST Mode of Arrival : Ambulatory Transported to ED by : Private vehicle To Room Via : Ambulate Accompanied By : Unaccompanied ED Vital Signs : Document Height & Weight : Document ED Allergies : Document ED Reason for Visit : Document Kiln Placer Needed : No Ileana Alfred RN - 06/27/2019 14:38 EST Infectious Disease History Infectious Disease History : Chicken pox/Shingles, MRSA Fever/Chills Last 48 Hours : No Travel To [place] with Travel Advisories : No Travel Outside [place] Within Last 30 Days : No Contact With Traveler to Advisory Region : No Tuberculosis Symptoms : None Ileana Alfred RN - 06/27/2019 14:38 EST Vital Signs ED Temperature Source : Oral Temperature Mode : Fahrenheit ED Pain : Yes Oxygen Therapy Mode : Room air Peripheral Pulse Rate : 95 bpm Respiratory Rate : 16 Breaths/Min Systolic Blood Pressure : 133 mmHg Diastolic Blood Pressure : 79 mmHg Oxygen Saturation : 98 % Ileana Alfred RN - 06/27/2019 14:38 EST Allergy (As Of: 06/27/2019 14:44:11 EST) Allergies (Active) No Known Allergies Estimated Onset Date: Unspecified ; Created By: CELESTINO RASMUSSEN RN; Reaction Status: Active ; Category: Drug ; Substance: No Known Allergies ; Type: Allergy ; Updated By: CELESTINO RASMUSSEN RN; Reviewed Date: 06/27/2019 14:38 EST Diagnosis Control ED (As Of: 06/27/2019 14:44:11 EST) Problems(Active) Allergic rhinitis (SNOMED CT :990776002 ) Name of Problem: Allergic rhinitis ; Recorder: CELESTINO RASMUSSEN RN; Confirmation: Confirmed ; Classification: Medical ; Code: [id number] ; Contributor System: [employer] ; Last Updated: 06/17/2019 13:06 EST ; Life Cycle Date: 06/17/2019 ; Life Cycle Status: Active ; Vocabulary: SNOMED CT At risk for sleep apnea (IMO :80597267 ) Name of Problem: At risk for sleep apnea ; Recorder: SYSTEM, SYSTEM; Confirmation: Confirmed ; Classification: Medical ; Code: [id number] ; Last Updated: 06/17/2019 13:06 EST ; Life Cycle Date: 06/17/2019 ; Life Cycle Status: Active ; Vocabulary: IMO CAD (coronary artery disease) (SNOMED CT :06584466 ) Name of Problem: CAD (coronary artery disease) ; Recorder: MARTI PAGAN APRN-FAM; Confirmation: Confirmed ; Classification: Medical ; Code: [id number] ; Contributor System: Power[employer] ; Last Updated: 06/17/2019 13:01 EST ; Life Cycle Date: 06/17/2019 ; Life Cycle Status: Active ; Responsible Provider: MARTI PAGAN APRN-FAM; Vocabulary: SNOMED CT DM2 (diabetes mellitus, type 2) (SNOMED CT :136341388 ) Name of Problem: DM2 (diabetes mellitus, type 2) ; Recorder: MARTI PAGAN APRN-FAM; Confirmation: Confirmed ; Classification: Medical ; Code: [id number] ; Contributor System: PowerChart ; Last Updated: 06/17/2019 13:01 EST ; Life Cycle Date: 06/17/2019 ; Life Cycle Status: Active ; Responsible Provider: MARTI PAGAN APRN-FAM; Vocabulary: SNOMED CT Dyslipidemia (high LDL; low HDL) (SNOMED CT :7957360973 ) Name of Problem: Dyslipidemia (high LDL; low HDL) ; Recorder: MARTI PAGAN APRN-FAM; Confirmation: Confirmed ; Classification: Medical ; Code: [id number] ; Contributor System: EXPOChart ; Last Updated: 06/17/2019 13:06 EST ; Life Cycle Date: 06/17/2019 ; Life Cycle Status: Active ; Responsible Provider: MARTI PAGAN APRN-FAM; Vocabulary: SNOMED CT Severe obesity (BMI 35.0-35.9 with comorbidity) (SNOMED CT :0972639362 ) Name of Problem: Severe obesity (BMI 35.0-35.9 with comorbidity) ; Recorder: MARTI PAGAN APRN-FAM; Confirmation: Confirmed ; Classification: Medical ; Code: [id number] ; Contributor System: PowerChart ; Last Updated: 06/17/2019 13:06 EST ; Life Cycle Date: 06/17/2019 ; Life Cycle Status: Active ; Responsible Provider: MARTI PAGAN APRN-FAM; Vocabulary: SNOMED CT Diagnoses(Active) Chest pain Date: 06/27/2019 ; Diagnosis Type: Reason For Visit ; Confirmation: Complaint of ; Clinical Dx: Chest pain ; Classification: Medical ; Clinical Service: Emergency medicine ; Code: PNED ; Probability: 0 ; Diagnosis Code: [id number] ED Height and Weight Height Source : Stated Height Entry Format : [place] Height, Feet : 5 ft(Converted to: 152 cm, 60 Inch) Height, Inches : 11 Inch(Converted to: 0 ft 11 Inch, 27.94 cm) Clinical Height : 180.34 cm Weight Source, ED : Critical estimated dosing weight Weight Entry Format : [place] Weight, Pounds : 266 lb Clinical Dosing Weight : 120.91 kg Body Surface Area (BSA) : 2.38 m2 Body Mass Index : 37.2 kg/m2 (HI) [place] Body Weight (IBW) : 74.31 kg Ileana Alfred RN - 06/27/2019 14:38 EST Pain Assessment Pain Assessment : Initial assessment Pain Scale Used : 0-10 Scale Location : Chest, midsternal Ileana Alfred RN - 06/27/2019 14:38 EST Pain Scale Intensity : 1 Ileana Alfred RN - 06/27/2019 14:38 EST Image 4 - Images currently included in the form version of this document have not been included in the text rendition version of the form. documented in this encounter Plan of Treatment Not on file documented as of this encounter Visit Diagnoses Not on filedocumented in this encounter
--- OUTSIDE RECORDS SUMMARY | 2025-07-08 15:54 | XMS_ITS | Encounter Summary ---
Author Organization [employer] ([place], [place], [place], [place], [place]) Address [address] [place] [address] Care Team Providers Care Ed Transporter Name Role Phone Unavailable Primary Care Provider Unavailabl e Encounter Details Date Type Department Care Team (Late st Contact Info) Description 06/19/2019 Transcribed Document [facility] [place] Family Medicine [address] [place] [address] ProviderLayton MD [facility] [place], [place] [address] Social History Tobacco Use Types Packs/Day Years Used Date Smoking Tobacco: Never Assessed Sex and Gender Information Value Date Recorded Sex Assigned at Not on file Legal Sex Male 6:48 PM CDT Gender Identity Not on file Sexual Orientation Not on file documented as of this encounter Miscellaneous Notes * Cerner Conversion Note - Layton ProviderMD - 06/19/2019 2:29 PM 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 UM Authorization Entered On: 06/19/2019 14:29 EST Performed On: 06/19/2019 14:29 EST by Josefina Ramirez, Control Clerk Subassembly Primary Insurance Authorization Authorization and Policy Numbers : Insurance 1 Health Plan: [employer] Policy Number: [id number] Authorization Number: Insurance Primary Name : ANTHEM HMOPPO Policy Number: [id number] Authorization Status-Primary : Awaiting callback Auth/Referral Contact Name-Primary : [place] Reference Number-Primary : [id number] Authorized Service Begin Date-Primary : 06/16/2019 EST Authorization Comments-Primary : Discharge date and summary faxed. Historical Authorization Comments-Primary : Comment 1: rec'd call from alivia/jason-IP request is denied for lack of info-they did not receive clinicals. Alivia states we can resend clinicals. Clinicals faxed to [phone] via Mavin (NIKOLE AVILES, RN-Utilization Review 06/19/2019 12:21) Comment 2: Clinicals submitted via availity for Ip approval, em to [place] and [place] to change the status to IP (ANNALISA CORTEZ RN 06/17/2019 14:50) Josefina Ramirez, Control Clerk Subassembly - 06/19/2019 14:29 EST documented in this encounter Plan of Treatment Not on file documented as of this encounter Visit Diagnoses Not on filedocumented in this encounter
--- OUTSIDE RECORDS SUMMARY | 2025-07-08 15:54 | XMS_ITS | Clinical Summary ---
Author Organization Healthcare Address [address] [place] [address] Care Team Providers Care Butcher Head Name Role Phone Isidro Judd MD Unavailable Staci Kwok Unavailable [phone] Pcp, No Primary Care Provider Unavailabl e Allergies Active Allergy Reactions Criticality Noted Date Comments Heparin Other - please document in the comment field High 12/31/2022 12/29/2022: Patient had STRONG POSITIVE PF4 OD = 2.198 and high clinical suspicion of heparin induced thrombocytopenia (Hematology consult); reflex PEA also reported as POSITIVE. With HIT diagnosis, heparins (unfractionated heparin, LMWH) should be avoided unless approved by Hematology consult. Medications aspirin 81 MG EC tablet Take 1 tablet (81 mg) by mouth 1 (one) time each day. 60 tablet 3 3 Active acetaminophen (Tylenol) 325 MG tablet Take 2 tablets (650 mg) by mouth every 4 (four) hours if needed for pain. 100 tablet 3 Active Additional Information Patient not taking.Reported on 11/14/2024 atorvastatin (Lipitor) 80 MG tablet Take 1 tablet (80 mg) by mouth every night. 60 tablet 3 3 Active Additional Information Patient not taking.Reported on 11/14/2024 metoprolol tartrate (Lopressor) 25 MG tablet Take 1 tablet (25 mg) by mouth 2 (two) times a day. 60 tablet 3 4 Active Additional Information Patient not taking.Reported on 11/14/2024 docusate sodium 100 MG capsule Take 100 mg by mouth 2 (two) times a day if needed for constipation. 20 capsule Active Additional Information Patient not taking.Reported on 11/14/2024 methocarbamol (Robaxin) 500 MG tablet Take 1 tablet (500 mg) by mouth 4 (four) times a day if needed for muscle spasms. 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/2022 DM (diabetes mellitus) 12/15/2022 HLD (hyperlipidemia) 12/15/2022 HTN (hypertension) 12/15/2022 Cerebrovascular accident 07/26/2018 023 Resolved Problems Problem Noted Date Diagnosed Date Resolved Date PONV (postoperative nausea and vomiting) 06/16/2024 04/15/2025 Right foot pain 12/31/2022 01/04/2023 Pneumonia 12/30/2022 01/04/2023 Hypocalcemia 12/30/2022 01/04/2023 Sinus tachycardia 12/30/2022 01/04/2023 Hyperglycemia 12/30/2022 01/04/2023 Thrombocytopenia 12/29/2022 01/04/2023 Hyponatremia 12/29/2022 01/04/2023 Transaminitis 12/29/2022 01/06/2023 Leukocytosis 12/29/2022 01/04/2023 Malnutrition 12/29/2022 01/04/2023 Pulmonary embolism with infarction 12/28/2022 01/12/2023 Pleural effusion on left 12/19/202201/2023 Volume overload 12/19/2022 12/30/2022 Respiratory failure 12/18/2022 01/05/20 NSTEMI (non-ST elevated myoc ardial infarction) 12/15/2022 01/06/2023 Hypokalemia 12/15/2022 01/04/2023 Immunizations Immunization Administration Dates Next Due Hep A, Adult 10/30/2018,04/20/2018 Hep B, adult 01/20/2018,08/19/2017,07/09/2017 Influenza, injectable, MDCK, preservative free, quadrivalent 05/01/2022 Influenza, injectable, quadrivalent 04/16/2020,1 Influenza, injectable, quadr ivalent, preservative free 04/27/2020,06/16/2019,04/20/2018 Influenza, intradermal, quad rivalent, preservative free 08/20/2017 Moderna COVID-19 Vaccine (Re d Cap) 12+ years 11/28/2020,10/31/2020 Upside COVID-19 Vac cine (Purple Cap) 12+ 09/11/2021 Pneumococcal Polysaccharide PPV23 04/19/2020 TD (adult), 2 Lf tetanus tox oid, preservative free, adsorbed 12/15/1995 Family History Medical History Relation Name Comments Heart disease Father Heart disease Maternal Grandfather Heart disease Maternal Grandmother Heart attack Mother Heart attack Paternal Grandfather Alzheimer's disease Paternal Grandmother Anesthesia problems Neg Hx Malig Hyperthermia Neg Hx Relation Name Status Comments Father Maternal Grandfather Maternal Grandmother Mother Paternal Grandfather Paternal Grandmother Social History Tobacco Use Types Packs/Day Years Used Date Smoking Tobacco: Never Passive Smoke Exposure: Never Smokeless Tobacco: Never Tobacco Cessation:Counseling Given: Not Answered Alcohol Use Standard Drinks/Week Comments Never 0 (1 standard drink = 0.6 oz pur e alcohol) PHQ-2 Answer Date Recorded Patient Health Questionnaire-2 Score 0 01/13/2023 CAGE ASSESSMENT Answer Date Recorded Cage unable to access Not on file 12/29/2022 Cage max number of drinks Not on file 2022 Cage Beverages a week Not on file 12/29/2022 Have you ever felt you should CUT down on your d rinking? 0 12/29/2022 Have you been ANNOYED by people criticizing your drinking? 0 12/29/2022 Have you felt GUILTY about your drinking? 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 0 12/29/2022 CAGE Questionnaire Score 0 023 PHQ-2A Answer Date Recorded Patient Health Questionnaire-2 Score 0 01/13/2023 Sex and Gender Information Value Date Recorded Sex Assigned at Not on file Legal Sex Male 9:08 AM EDT Gender Identity Not on file Sexual Orientation Not on file Last Filed Vital Signs Vital Sign Reading Time Taken Comments Blood Pressure 129/81 11/14/2024 8:54 AM EDT Pulse 75 11/14/2024 8:54 AM EDT Temperature 36.8 C (98.3 F) 06/17/2024 7:25 AM EST Respiratory Rate 16 06/17/2024 7:25 AM EST Oxygen Saturation 98% 11/14/2024 8:54 AM EDT Inhaled Oxygen Concentration - - Weight 114 kg (251 lb 14 oz) 11/14/2024 8:54 AM EDT Height 180.3 cm (5' 11 ) 11/14/2024 8:54 AM EDT Body Mass Index 35.13 11/14/2024 8:54 AM EDT Plan of Treatment Health Maintenance Due Date Last Done Comments [facility]-Infant/Child/Adol SDOH Screenings 1980 Diabetes: Dental Exam 01/20/1988 [facility]- SDOH Screenings 01/20/1996 [facility]-Adult SDOH Screenings 01/20/1996 [facility]-Pneumococcal Vaccine: Pediatrics (0 to 5 Years) and At-Risk Patients (6 to 49 Years) (2 of 2 - PCV) 04/19/2021 04/19/2020 CT Colonography 2023 Colonoscopy 2023 FIT-DNA 2023 FIT 2023 FOBT 2023 Sigmoidoscopy 2023 [facility]-Colorectal Cancer Screening 2023 [facility]-Diabetes: Hemoglobin A1C 11/11/2023, 12/28/2022, 12/15/2022 [facility]-Depression Screening 01/14/2024 01/13/2023 [id number] Vaccine ( season) 2025 09/11/2021, 11/28/2020, 10/31/2020 [facility]-Influenza Vaccine (#1) 03/26/202504/22, 05/01/2022, 04/27/2020, Additional history exists [facility]-Zoster Vaccines (1 of 2) 01/20/2028 [facility]-DTaP,Tdap,and Td Vaccines (3 - Td or Tdap) 05/06/2034 05/06/2024, 12/15/1995 [facility]-Hepatitis B Vaccines Completed 018, 08/19/2017, 07/09/2017 [facility]-Hepatitis A Vaccines Completed 10/30/2018, 03/27 [facility]-HIV Screening Completed 12/28/2022 [facility]-Hepatitis C Screening Completed 12/28/2022, [facility]-Obesity Intervention Completed 025, 10/26/2024, 07/21/2024, Additional history exists HPV Vaccines (No Doses Required) Completed [facility]-HIB Vaccines Aged Out No longer e ligible based on patient's age to complete this topic [facility]-IPV Vaccines Aged Out No longer e ligible based on patient's age to complete this topic [facility]-Rotavirus Vaccines Aged Out No lo nger eligible based on patient's age to complete this topic Medical Devices Implanted Type Area Automotive Exhaust Emissions Technician Device Identifier Shelf Expiration Date Model / Serial / Lot Stent Stent N/A: Chest Description:Pt unsure if the y took the stents out before bypass Procedures Procedure Name Priority Date/Time Associated Diagnosis Comments HEMOGLOBIN A1C Routine 12/28/2022 4:54 PM EDT HEPATITIS C ANTIBODY - ED W/REFLEX TO HCV QUANT PCR STAT 12/28/2022 9:16 AM EDT HIV 1/2 ANTIBODY/ANTIGEN SCREEN WITH REFLEX TO HIV I/II DIFFERENTIATION STAT 12/28/2022 9:16 AM EDT from Last 3 Months or Most Recently Relevant to Health Maintenance Results * (ABNORMAL) Hemoglobin A1c (12/28/2022 4:54 PM EDT) [facility] Hemoglobin A1c 7.3(H) <5.7 % 12/28/2022 5:43 PM EDT [facility] Blood Venous blood specimen / Unknown Venipuncture / Unknown 12/28/2022 4:54 PM EDT 12/28/2022 4:56 PM EDT Narrative [facility] - 12/28/2022 5:43 PM EDT HA1C Interpretive Data: Diagnosis of Diabetes: Diabetic > or = 6.5% Pre-diabetic 5.7 to 6.4% Non-diabetic < or = 5.6% Glycemic Targets for Type I and Type II Diabetics: Non- Adults <7.0% Adults <6.0% Children and Adolescents <7.5% Source: [place] Diabetes Association. Standards of medical care in diabetes,2017. Diabetes Care.2017:40 (suppl 1):S1-S135. HbA1c assay performed by an ion-exchange chromatography method that is certified traceable to the DCCT. Rose BALDERAS LAB BLOOD ORDERABLES Final R esult Performing Organization Address [facility] Co de Phone Number [facility] [address] [place] [address] * HIV 1 & 2 Antibody/Antigen Screen (12/28/2022 9:16 AM EDT) [facility] HIV 1 & 2 Antibody/Antigen Screen Non Reactive Non Reactive 12/28/2022 10:10 AM EDT [facility] Comment:Screening for HIV 1 & 2 antibodies, and P24 antigen is NONREACTIVE. No confirmatory testing is required. Blood Venous blood specimen / Unknown Venipuncture / Unknown 12/28/2022 9:16 AM EDT 12/28/2022 9:28 AM EDT Maria Teresa Renee DO LAB BLOOD ORDERABLES Final Re sult Performing Organization Address [facility] Co de Phone Number [facility] [address] [place] [address] * Hepatitis C Antibody - ED (12/28/2022 9:16 AM EDT) [facility] Hepatitis C Antibody Negative Negative 12/28/2022 10:10 AM EDT [facility]ALTH[facility]ARE [facility] Blood Venous blood specimen / Unknown Venipuncture / Unknown 12/28/2022 9:16 AM EDT 12/28/2022 9:27 AM EDT Maria Teresa Renee DO LAB BLOOD ORDERABLES Final Re sult [facility] [address] [place] [address] from Last 3 Months or Most Recently Relevant to Health Maintenance Insurance ANTHEM Advance Directives * Full Code (Latest Code Status on File) Date Activated Date Inactivated Comments 06/16/2024 10:40 AM 06/17/2024 1:04 PM Question Answer Comments Patient has decision-making capacity? Yes * Full Code Date Activated Date Inactivated Comments 12/28/2022 4:22 PM 01/04/2023 7:33 PM Question Answer Comments Patient has decision-making capacity? Yes * Full Code Date Activated Date Inactivated Comments 12/18/2022 2:21 PM 12/23/2022 6:40 PM Question Answer Comments Patient has decision-making capacity? Yes * Full Code Date Activated Date Inactivated Comments 12/15/2022 1:14 AM 12/18/2022 2:21 PM Question Answer Comments Patient has decision-making capacity? Yes Care Teams Butcher Head Relationship Specialty Start Date End Date Pcp, No [address] [place] [address] PCP - General Family Medicine 10/26/24 [place] [id number] Referring Physician Cardiology 12/15/22 Staci Kwok [place] [address] Fellow Hematology and Oncology 05/14/23
--- OUTSIDE RECORDS SUMMARY | 2025-07-08 15:54 | XMS_ITS | Encounter Summary ---
Author Organization [employer] ([place], [place], [place], [place], [place]) Address [address] [place] [address] Care Team Providers Care Journeyman Tool And Die Maker Name Role Phone Unavailable Primary Care Provider Unavailabl e Encounter Details Date Type Department Care Team (Late st Contact Info) Description 06/27/2019 Transcribed Document [facility] [place] Family Medicine [facility] [place] [address] ProviderLayton MD [address] [place] [id number] Social History Tobacco Use Types Packs/Day Years Used Date Smoking Tobacco: Never Assessed Sex and Gender Information Value Date Recorded Sex Assigned at Not on file Legal Sex Male 6:48 PM CDT Gender Identity Not on file Sexual Orientation Not on file documented as of this encounter Miscellaneous Notes * Cerner Conversion Note - Layton Singh MD - 06/27/2019 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 History of Present Illness The patient presents with chest pain and Patient's 39-year-old male with diabetes hypertension hyperlipidemia and cardiovascular disease, patient had stent placed [address] Starr, he is scheduled for a follow-up stress test on Wednesday. Patient comes emergency department with complaint of intermittent chest discomfort over the last couple days, patient says that he rates the pain a 1 and that it is just a nuisance, he reports that nothing makes it worse or better. Patient reports that it is reproducible with palpation to his sternum. Patient denies any associated symptoms no fever chills headache dizziness blurred vision cough congestion shortness of breath abdominal pain nausea vomiting diarrhea dysuria hematuria numbness tingling lower extremity edema rash. The onset was 2 days ago. Review of Systems Additional review of systems information: All other systems reviewed and otherwise negative. Health Status Allergies: Allergic Reactions (Selected) No Known Allergies. Medications: (Selected) Prescriptions Prescribed Pepcid 20 mg oral tablet: 1 Tab, Oral, BID, 60 Tab, 0 Refill(s) aspirin 81 mg oral delayed release tablet: 1 Tab, Oral, Daily, 30 Tab, 0 Refill(s) atorvastatin 40 mg oral tablet: 2 Tab, Oral, At Bedtime, 60 Tab, 0 Refill(s) ticagrelor 90 mg oral tablet: 1 Tab, Oral, BID, 60 Tab, 0 Refill(s) Documented Medications Documented Vitamin B-12: 1 Tab, Oral, Daily, 0 Refill(s) metFORMIN 1000 mg oral tablet: 1 Tab, Oral, BID, 60 Tab, 0 Refill(s) multivitamin: 1 Tab, Oral, Daily, 0 Refill(s). Immunizations: Per nurse's notes. Past Medical/ Family/ Social History Medical history Reviewed as documented in chart. Surgical history: Cardiac Stent on 06/16/2019 at 39 Years. Comments: 06/27/2019 10:03 ELOINA VILA RN RESULTS OF INTERVENTION: At angiography, the middle circumflex contained critical stenosis of greater than 90%. Following PTCA and drug-eluting stent placement, this is reduced to 0% with BLANCA-3 flow and no residual dissection. CONCLUSION: [id number] myocardial infarction due to the combination of severe circumflex stenosis and chronic total occlusion of the right coronary artery, which is dominant. Eye surgery. Right ankle surgery for fx, pinning removed. Tonsils., Reviewed as documented in chart. Family history: Coronary heart disease Grandfather (M) Grandmother (M) , Reviewed as documented in chart. Social history: Social & Psychosocial Habits Alcohol 06/16/2019 Alcohol Use History, Social Habits No Substance Abuse 06/16/2019 Recreational Drug Use History No Tobacco 06/16/2019 Smoking Status Never (less than 100 in l . Problem list: Active Problems (6) Allergic rhinitis At risk for sleep apnea CAD (coronary artery disease) DM2 (diabetes mellitus, type 2) Dyslipidemia (high LDL; low HDL) Severe obesity (BMI 35.0-35.9 with comorbidity) , per nurse's notes. Physical Examination Vital Signs Vital Signs/Vital Measures 06/27/2019 14:38 EST Systolic Blood Pressure 133 mmHg Diastolic Blood Pressure 79 mmHg Temperature Source Oral Temperature Mode Fahrenheit Peripheral Pulse Rate 95 bpm Respiratory Rate 16 Breaths/Min Oxygen Saturation 98 % Oxygen Therapy Mode Room air . Measurements 06/27/2019 14:38 EST Height Source Stated Height Entry Format Story Height/Length, BENINESE (ft) 5 ft Height/Length BENINESE 11 Inch CLINICALHEIGHT 180.34 cm Headrick Body Weight 74.31 kg Weight Source, ED Critical estimated dosing weight Weight Entry Format Story Weight Italian lb 266 lb CLINICALWEIGHT 120.91 kg Body Surface Area (BSA) 2.38 m2 Body Mass Index 37.2 kg/m2 HI . Oxygen Saturation 06/27/2019 14:38 EST Oxygen Saturation 98 % . General: Alert, no acute distress. Skin: Warm, dry, pink, intact. Head: Normocephalic, atraumatic. Neck: Supple, trachea midline. Eye: Normal conjunctiva. Ears, nose, mouth and throat: Oral mucosa moist. Cardiovascular: Regular rate and rhythm, No murmur, Normal peripheral perfusion, No edema. Respiratory: Lungs are clear to auscultation, respirations are non-labored. Chest wall: No deformity, Tenderness to palpate sternum. Musculoskeletal: Normal ROM, normal strength. Neurological: Alert and oriented to person, place, time, and situation, No focal neurological deficit observed, normal speech observed, normal coordination observed. Psychiatric: Cooperative, appropriate mood & affect. Medical Decision Making Differential Diagnosis: Unstable angina, angina, anxiety, atypical chest pain, costochondritis, pleurisy, chest wall pain. Documents reviewed: Emergency department nurses' notes, prior records. 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 Electrocardiogram: Normal sinus rhythm at a rate of 84 bpm reviewed by ED Sugar, Normal sinus rhythm at 72 bpm reviewed by SAHRA Wooten. Results review: Lab results : Lab Results 06/27/2019 19:24 EST Troponin I Ultra <0.015 ng/mL 06/27/2019 14:45 EST Sodium Level 138 mmol/L Potassium Level 3.7 mmol/L Chloride Level 104 mmol/L Carbon Dioxide Level 30 mmol/L Anion Gap 8 LOW Glucose Level 105 mg/dL Blood Urea Nitrogen 15 mg/dL Creatinine Level 1.10 mg/dL eGFR >60 mL/min/1.73m2 eGFR NonAfrican >60 mL/min/1.73m2 Bun/Creatinine 13.6 Calcium Level 9.2 mg/dL Protein Total 7.6 Gram/dL Albumin Level 3.9 Gram/dL Globulin 3.7 Gram/dL A/G Ratio 1.1 Bilirubin Total 0.5 mg/dL Alk Phos 75 Units/Liter AST 39 Units/Liter HI ALT 60 Units/Liter Troponin I Ultra <0.015 ng/mL WBC 9.8 K/uL HI RBC 4.74 Million/uL Hgb 15.7 g/dL Hct 44.5 % MCV 93.9 fL MCH 33.1 pg HI MCHC 35.3 Gram/dL Platelet Count 272 K/uL MPV 9.7 fL RDW 12.1 % Neut % 58.8 % Neut # 5.75 K/uL Lymph % 31.4 % Lymph # 3.06 K/uL [place] % 7.3 % [place] # 0.71 K/uL Eos % 2.2 % Eos # 0.21 Baso % 0.3 % Baso # 0.03 Slide Review No Urine Type. U CleanCatch Urine Color Yellow Urine Appearance Clear Urine Specific Tatums 1.023 Urine pH Dipstick 5.5 LOW Urine Leukocyte Esterase Negative Urine Nitrite Negative Urine Protein Dipstick Negative Urine Glucose Dipstick Negative Urine Ketones Dipstick Negative Urine Urobilinogen Dipstick 1.0 EU/dL Urine Bilirubin Dipstick Negative Urine Blood Dipstick Negative Ur WBC 0-2 /HPF . Radiology results: Radiology Results (Last 48 hours) [id number] -- 06/27/2019 13:43 CR Chest 2 Vws (06/27/2019 14:55) Result: TWO-VIEW CHEST 06/27/2019 1:44 PMHISTORY: Shortness of breathCOMPARISON: NoneFINDINGS: The cardiac silhouette is normal in size. The mediastinaland hilar contours are unremarkable. The lungs are clear. There is nopneumothorax. The visualized osseous structures demonstrate no acuteabnormalities.IMPRESSION: No acute cardiopulmonary process. Images reviewed, interpreted, and dictated by Dr. Valentín Garcia.Transcribed by Stacey Child (R).I have personally viewed, interpreted and dictated the examination. Anastasia read and agree with the above final transcribed report. . Impression and Plan Diagnosis Chest wall pain - Discharge, Medical Calls-Consults - Jorge BALDERAS with cardiology, ok to dc with ACS r/o reinforce med compliance and strict return precautions. Plan Condition: Stable. Disposition: Discharged Admit/Transfer/Discharge: Discharge (Order): Start: 06/27/2019 21:06 EST, Discharge to: Home. Patient was given the following educational materials: Chest Wall Pain. Follow up with: LUANN MENJIVAR Within 2 to 3 days; ; RENETTA GILLIS Within 2 days Continue medications as prescribed, see cardiology on Wednesday as scheduled, return to the emergency department with any new or worsening symptoms.. Counseled: Patient, Family, Regarding diagnosis, Regarding diagnostic results, Regarding treatment plan, Patient indicated understanding of instructions. Electronically signed by Elizabeth Painter Conversion Physical Sciences Instructor Christopherner at 11/09/2022 12:54 PM CDT documented in this encounter Plan of Treatment Not on file documented as of this encounter Visit Diagnoses Not on filedocumented in this encounter
--- OUTSIDE RECORDS SUMMARY | 2025-07-08 15:54 | XMS_ITS | Encounter Summary ---
Author Organization [employer] ([place], [place], [place], [place], [place]) Address [address] [place] [address] Care Team Providers Care Food Service Team Member Name Role Phone Unavailable Primary Care Provider Unavailabl e Encounter Details Date Type Department Care Team (Late st Contact Info) Description 06/17/2019 Transcribed Document [facility] [place] [facility] [place] [address] ProviderLayton MD [address] [place] [address] [id number] Social History Tobacco Use Types Packs/Day Years Used Date Smoking Tobacco: Never Assessed Sex and Gender Information Value Date Recorded Sex Assigned at Not on file Legal Sex Male 6:48 PM CDT Gender Identity Not on file Sexual Orientation Not on file documented as of this encounter Miscellaneous Notes * Cerner Conversion Note - Layton Singh MD - 06/17/2019 2:10 PM TABLE TENDER Nursing Discharge Summary Entered On: 06/17/2019 14:10 EST Performed On: 06/17/2019 14:10 EST by Reynaldo Saleh RN Discharge Documentation Discharge Date/Time : 06/17/2019 14:10 EST Patient Disposition, General : Discharge Discharge To : Home with ambulatory/outpatient follow-up Mode Of Departure, General Discharge : Private vehicle Accompanied By, Discharge : Spouse IV Discontinued : Yes Medications Given to Patient : Yes Personal Belongings With Patient : Yes Pt's Own Supply of Medications Returned : No Prescriptions Given to Patient : Yes Discharge Instructions Reviewed With, Opportunity For Questions Given : Patient, Spouse Patient Education Completed : Yes Number of Prescriptions Given : 4 Number of Medications Given : 1 Teaching Method : Explanation, Printed materials Teaching Evaluation : Verbalizes understanding Reynaldo Saleh RN - 06/17/2019 14:10 EST Electronically signed by Madina, [facility] Conversion Traveling Inventory Associate Cerner at 11/09/2022 1:07 PM CDT documented in this encounter Plan of Treatment Not on file documented as of this encounter Visit Diagnoses Not on filedocumented in this encounter
--- OUTSIDE RECORDS SUMMARY | 2025-07-08 15:54 | XMS_ITS | Encounter Summary ---
Author Organization [employer] ([place], [place], [place], [place], [place]) Address [address] [place] [address] Care Team Providers Care Motion Graphics Designer Name Role Phone Unavailable Primary Care Provider Unavailabl e Encounter Details Date Type Department Care Team (Late st Contact Info) Description 06/17/2019 Transcribed Document [facility] [place] Medicine [facility] [place] [address] ProviderLayton MD [facility] [place], [place] [id number] Social History Tobacco Use Types Packs/Day Years Used Date Smoking Tobacco: Never Assessed Sex and Gender Information Value Date Recorded Sex Assigned at Not on file Legal Sex Male 6:48 PM CDT Gender Identity Not on file Sexual Orientation Not on file documented as of this encounter Miscellaneous Notes * Cerner Conversion Note - Layton ProviderMD - 06/17/2019 1:09 PM IS TECHNICIAN Patient: ERICH CHAO Age: 39 Years Sex: Male : 1980 Admit Date 06/16/2019 10:43 Discharge Date 06/17/[address] Hutchison Discharge Diagnosis Allergic rhinitis 06/17/2019 J30.9 ICD-10-CM Severe obesity (BMI 35.0-35.9 with comorbidity) 06/17/2019 E66.01 ICD-10-CM At risk for sleep apnea 06/17/2019 Z91.89 ICD-10-CM Dyslipidemia (high LDL; low HDL) 06/17/2019 E78.5 ICD-10-CM CAD (coronary artery disease) 06/17/2019 I25.10 ICD-10-CM S/P drug eluting coronary stent placement 06/17/2019 Z95.5 ICD-10-CM DM2 (diabetes mellitus, type 2) 06/17/2019 E11.9 ICD-10-CM NSTEMI (non-ST elevated myocardial infarction) 06/17/2019 I21.4 ICD-10-CM Procedures Cardiac Cath DATE OF SERVICE: 06/16/2019 INDICATION: 39-year-old male with diabetes, but no previous cardiac history, presented to [facility] with chest pressure and had serial elevation in troponin consistent with a [id number] myocardial infarction. At that hospital, he received aspirin and Brilinta and was started on a statin and was transferred for cardiac catheterization. PROCEDURES PERFORMED: 1. Percutaneous transluminal coronary angioplasty and drug-eluting stent placement, middle circumflex. 2. Attempted wire crossing of proximal right coronary artery, chronic total occlusion. 3. Selective coronary angiography. 4. Left heart catheterization. 5. Right radial and brachial artery selective angiography. [1] Studies ECHO REPORT - [facility] TRANSTHORACIC ECHOCARDIOGRAPHY REPORT Date of Service: 06/16/2019 Impression: Limited echo performed to assess for pericardial effusion. No pericardial effusion. No evidence of cardiac tamponade. Normal left ventricular systolic function. Contractility Score: Normal Left Ventricular contractility was noted. Reason for Hospitalization Mr. Chao is a 39 year old male with history of diabetes on metformin who presented to [facility] on 06/15 for evaluation of chest pain. Patient tells met [facility] chest pain started on06/14 evening and is described as midline substernal radiating to his jaw. He describes it as a pressure that is worse with activity but not relieved by anything. At [facility] he was given nitro paste and morphine and that relieved the chest pain. He had CTA chest and echocardiogram done at [facility] that showed no PE and good EF. Per patient hew as transferred to [facility] for cardiac cath as his troponins kept going up. Lab work was unfortunately not sent with patient. He was seen by me in [facility] and cardiology is planning [facility] this afternoon. [2] Hospital Course Patient was evaluated by cardiology and was taken emergently to the [facility] for coronary artery evaluation. Percutaneous coronary angioplasty was performed to the middle circumflex artery with a drug-eluting stent placed. Patient tolerated procedure well and spent the night on telemetry without further issue. As of this morning he has no chest pain and has been ambulating without difficulty. Right femoral access site looks good. Patient's only complaint this morning was some right-sided back pain which improved with walking. He has been cleared by cardiology for discharge home with new medications including Brillinta, Lipitor, daily aspirin, and Pepcid. He will continue his current dose of metformin for diabetes. He was counseled extensively on adherence to a diabetic diet and avoidance of saturated fat as well as slow weight loss and increased activity. He and his family verbalized understanding of these recommendations. He will need follow-up with cardiology as directed within 2 weeks for stress testing and stent follow-up. Vital Signs T: 36.2 ??C TMIN: 36.2 ??C TMAX: 36.8 ??C HR: 104(Monitored) RR: 20 BP: 131/82 SpO2: 98% HT: 180.34 cm WT: 121.16 kg BMI: 37.25 Oxygen Settings (Last) Oxygen Therapy Mode: Room air (06/17/19 01:00:00) Physical Exam General: Well nourished, well developed adult man in NAD HEENT: Normocephalic, atraumatic. PERRLA, EOMs intact, anicteric. Nares patent. OMM, tongue and uvula midline, speech clear. Neck: No lymphadenopathy or tenderness. Normal ROM. No carotid bruits. CV: RRR, Normal S1/S2 without murmur or gallop. No peripheral edema. Pedal pulses 2+. Pulm: CTAB without cough, wheeze, or rhonchi. Respirations regular and unlabored. GI: Nontender, nondistended, bowel sounds normoactive. No organomegaly. : Normal external genitalia. No CVAT or suprapubic tenderness. Denies dysuria, hematuria. Skin: Warm, dry, intact. No rashes. R groin access site looks good. MS: Normal AROM x4, MENENDEZ. Independently ambulatory at baseline. R flank nontender, no bruising. Neuro: CN2-12 grossly intact without focal deficits. Normal sensation. Psych: A&Ox4, affect appropriate. Pleasant and conversant. Discharge Disposition Home Discharge Follow Up Follow up with primary care provider - Within 1 week RENETTA HUTCHISON - Within 1 month Discharge Medications (7) Active aspirin 81 mg oral delayed release tablet 81 mg = 1 Tab, Oral, Daily atorvastatin 40 mg oral tablet 80 mg = 2 Tab, Oral, At Bedtime metFORMIN 1000 mg oral tablet 1,000 mg = 1 Tab, Oral, BID multivitamin 1 Tab, Oral, Daily Pepcid 20 mg oral tablet 20 mg = 1 Tab, Oral, BID ticagrelor 90 mg oral tablet 90 mg = 1 Tab, Oral, BID Vitamin B-12 1 Tab, Oral, Daily Code Status Start: 06/16/19 18:38:00 EST, Full Code, Continuous Order Condition on Discharge Medically stable. Consulting Physicians RENETTA HUTCHISON MD-CAR Current Diet Order Diet, Adult - Ordered -- Start: 06/16/19 18:38:00 EST, Cardiac Diet Patient Discharge Summary Orders Discharge Activity: Discharge Activity: Activity as tolerated Diet: Discharge Diet: Diabetic diet (carb controlled) Wound/Incision Care Instructions: Keep operative site/wound clean and dry Showering/Bathing Instructions: May shower Driving Restriction: No driving until 24 hours after taking pain medication Return to Work or School: May return to work or school Pending Labs No Labs on Record Time Spent on Discharge Approximately 35 minutes spent on this discharge. [1] Cardiac Cath; RENETTA HUTCHISON MD-CAR 06/16/2019 17:55 EST [2] H&P [facility] Hospitalist; LINDA CHAIREZ DO 06/16/2019 12:58 EST Electronically signed by Elizabeth Painter Conversion Geophysical Support Specialist Cerner at 11/09/2022 1:07 PM CDT documented in this encounter Plan of Treatment Not on file documented as of this encounter Visit Diagnoses Not on filedocumented in this encounter
--- OUTSIDE RECORDS SUMMARY | 2025-07-08 15:54 | XMS_ITS | Encounter Summary ---
Author Organization [employer] ([place], [place], [place], [place], [place]) Address [address] [place] [address] Care Team Providers Care Citizenship Teacher Name Role Phone Unavailable Primary Care Provider Unavailabl e Encounter Details Date Type Department Care Team (Late st Contact Info) Description 06/20/2019 Transcribed Document [facility] [place] Family Medicine [address] [place] [address] ProviderLayton MD [address] [place], [place] [address] Social History Tobacco Use Types Packs/Day Years Used Date Smoking Tobacco: Never Assessed Sex and Gender Information Value Date Recorded Sex Assigned at Not on file Legal Sex Male 6:48 PM CDT Gender Identity Not on file Sexual Orientation Not on file documented as of this encounter Miscellaneous Notes * Cerner Conversion Note - Layton ProviderMD - 06/20/2019 12:02 PM INSURANCE CHECKER UM Authorization Entered On: 06/20/2019 12:03 EST Performed On: 06/20/2019 12:02 EST by PIEDAD WYLIE Rn-Utilization Review Primary Insurance Authorization Authorization and Policy Numbers : Insurance 1 Health Plan: [employer] Policy Number: [id number] Authorization Number: Insurance Primary Name : ANTH HMOPPO Policy Number: [id number] Authorization Status-Primary : Drg approved Auth/Referral Contact Name-Primary : DC Reference Number-Primary : [id number] Number of Days Authorized-Primary : 1 Day(s) Authorized Service Begin Date-Primary : 06/16/2019 EST Authorized Service End Date-Primary : 06/17/2019 EST Authorization Comments-Primary : Steven Hensley Auth DRG approved. Historical Authorization Comments-Primary : Comment 1: Discharge date and summary faxed. (Josefina Ramirez, Developing Machine Tender 06/19/2019 14:29) Comment 2: rec'd call from alivia/jason-IP request is denied for lack of info-they did not receive clinicals. Alivia states we can resend clinicals. Clinicals faxed to [phone] via [employer]ner (NIKOLE AVILES, RN-Utilization Review 06/19/2019 12:21) Comment 3: Clinicals submitted via [facility] for Ip approval, em to [place] and [place] to change the status to IP (ANNALISA CORTEZ RN 06/17/2019 14:50) PIEDAD WYLIE, Rn-Utilization Review - 06/20/2019 12:02 EST documented in this encounter Plan of Treatment Not on file documented as of this encounter Visit Diagnoses Not on filedocumented in this encounter
--- OUTSIDE RECORDS SUMMARY | 2025-07-08 15:54 | XMS_ITS | Encounter Summary ---
Author Organization [employer] ([place], [place], [place], [place], [place]) Address [address] [place] [address] Care Team Providers Care Frame Runner Name Role Phone Unavailable Primary Care Provider Unavailabl e Encounter Details Date Type Department Care Team (Late st Contact Info) Description 06/19/2019 Transcribed Document [facility] [place] Family Medicine [address] [place] [address] ProviderLayton MD [address] [place], [place] [address] Social History Tobacco Use Types Packs/Day Years Used Date Smoking Tobacco: Never Assessed Sex and Gender Information Value Date Recorded Sex Assigned at Not on file Legal Sex Male 6:48 PM CDT Gender Identity Not on file Sexual Orientation Not on file documented as of this encounter Miscellaneous Notes * Cerner Conversion Note - Layton ProviderMD - 06/19/2019 12:21 PM SAP SECURITY CONSULTANT UM Authorization Entered On: 06/19/2019 12:23 EST Performed On: 06/19/2019 12:21 EST by NIKOLE AVILES, RN-Utilization Review Primary Insurance Authorization Authorization and Policy Numbers : Insurance 1 Health Plan: [employer] Policy Number: [id number] Authorization Number: Insurance Primary Name : ANTH [employer] Policy Number: [id number] Authorization Status-Primary : Awaiting callback Reference Number-Primary : [id number] Authorized Service Begin Date-Primary : 06/16/2019 EST Authorization Comments-Primary : rec'd call from alivia/jason-IP request is denied for lack of info-they did not receive clinicals. Alivia states we can resend clinicals. Clinicals faxed to [phone] via [employer] Historical Authorization Comments-Primary : Comment 1: Clinicals submitted via [employer] for Ip approval, em to [place] and [place] to change the status to IP (ANNALISA CORTEZ RN 06/17/2019 14:50) NIKOLE AVILES, RN-Utilization Review - 06/19/2019 12:21 EST Electronically signed by [facility], [facility] Conversion Software Engineer Kernel Cerner at 11/09/2022 12:45 PM CDT documented in this encounter Plan of Treatment Not on file documented as of this encounter Visit Diagnoses Not on filedocumented in this encounter
--- OUTSIDE RECORDS SUMMARY | 2025-07-08 15:55 | XMS_ITS | Encounter Summary ---
Author Organization [employer] ([place], [place], [place], [place], [place]) Address [address] [place] [address] Care Team Providers Care Process Manager Name Role Phone Unavailable Primary Care Provider Unavailabl e Encounter Details Date Type Department Care Team (Late st Contact Info) Description 06/16/2019 Transcribed Document [facility] [place] [address] [place] [address] ProviderLayton MD [facility] [place] [address] Social History Tobacco Use Types Packs/Day Years Used Date Smoking Tobacco: Never Assessed Sex and Gender Information Value Date Recorded Sex Assigned at Not on file Legal Sex Male 6:48 PM CDT Gender Identity Not on file Sexual Orientation Not on file documented as of this encounter Miscellaneous Notes * Cerner Conversion Note - Layton ProviderMD - 06/16/2019 11:15 AM LITHOGRAPH PRESS FEEDER Spiritual Care Assessment Entered On: 06/16/2019 13:29 EST Performed On: 06/16/2019 11:42 EST by LIDA CABRAL General Information Initial Visit : Yes Referred by : Patient Referral Reason Comment : Pre-procedure visit Ministry Provided to : Patient, Family/Significant other LIDA CABRAL - 06/16/2019 13:28 EST Spiritual Assessment Spiritual Assessment Comment/Summary Points : Pre-procedure visit and prayer with patient and . Spirital Assessment Comment/Summary Report : SPIRITUAL ASSESSMENT COMMENT/SUMMARY No qualifying data available. LIDA CABRAL - 06/16/2019 13:28 EST Interventions Emotional Support : Empathic/Engaged listening, Family/Significant other supported Spiritual and Mandaeism : Prayer shared, Spiritual/Mandaeism support provided LIDA CABRAL - 06/16/2019 13:28 EST Electronically signed by Madina [facility] Conversion Quad Stayer Cerner at 11/09/2022 1:07 PM CDT documented in this encounter Plan of Treatment Not on file documented as of this encounter Visit Diagnoses Not on filedocumented in this encounter
--- OUTSIDE RECORDS SUMMARY | 2025-07-08 15:55 | XMS_ITS | Encounter Summary ---
Author Organization [employer] ([place], [place], [place], [place], [place]) Address [address] [place] [address] Care Team Providers Care Training Designer Name Role Phone Unavailable Primary Care Provider Unavailabl e Encounter Details Date Type Department Care Team (Late st Contact Info) Description 06/16/2019 Transcribed Document [facility] [place] [facility] [place] [address] ProviderLayton MD [address] [place] [id number] Social History Tobacco Use Types Packs/Day Years Used Date Smoking Tobacco: Never Assessed Sex and Gender Information Value Date Recorded Sex Assigned at Not on file Legal Sex Male 6:48 PM CDT Gender Identity Not on file Sexual Orientation Not on file documented as of this encounter Miscellaneous Notes * Cerner Conversion Note - Layton Singh MD - 06/16/2019 12:58 PM BOLT MACHINE OPERATOR Patient: ERICH CHAO Age: 39 years Sex: Male : 1980 Associated Diagnoses: None Author: LINDA CHAIREZ DO Basic Information Source of history: Self, Medical record. History limitation: None. Chief Complaint chest pain Subjective Mr. Chao is a 39 year old male with history of diabetes on metformin who presented to [facility] on 06/15 for evaluation of chest pain. Patient tells met [facility] chest pain started on06/14 evening and is described as midline substernal radiating to his jaw. He describes it as a pressure that is worse with activity but not relieved by anything. At [facility] he was given nitro paste and morphine and that relieved the chest pain. He had CTA chest and echocardiogram done at [facility] that showed no PE and good EF. Per patient hew as transferred to [facility] for cardiac cath as his troponins kept going up. Lab work was unfortunately not sent with patient. He was seen by me in [facility] and cardiology is planning [facility] this afternoon. Health Status Allergies: Allergic Reactions (Selected) No Known Allergies Current medications: (Selected) Inpatient Medications Ordered Normal Saline Flush: 10 mL, IV Push, Q12H Normal Saline Flush: 10 mL, IV Push, See Comment, PRN: IV Use Sodium Chloride 0.9% intravenous solution 500 mL: Titrate, IntraVENous Documented Medications Documented Non Formulary med: Aneta root one tablet two to three times a day, voer the counter, 0 Refill(s) Vitamin B-12: 1 Tab, Oral, Daily, 0 Refill(s) metFORMIN 1000 mg oral tablet: 1 Tab, Oral, BID, 60 Tab, 0 Refill(s) multivitamin: 1 Tab, Oral, Daily, 0 Refill(s), Home Medications (4) Active metFORMIN 1000 mg oral tablet 1,000 mg = 1 Tab, Oral, BID multivitamin 1 Tab, Oral, Daily Non Formulary med Vitamin B-12 1 Tab, Oral, Daily , Medications (3) Active Scheduled: (1) #NaCl 0.9% *FLUSH* inj 10 mL 10 mL, IV Push, Q12H Continuous: (1) NaCl 0.9% TITRATE 500 mL 500 mL, IntraVENous PRN: (1) #NaCl 0.9% *FLUSH* inj 10 mL 10 mL, IV Push, See Comment Problem list: Medical Obesity / SNOMED CT 6778376865 / Confirmed Diabetes mellitus / SNOMED CT 190001367 / Confirmed At risk for sleep apnea / IMO [id number] / Confirmed, Active Problems (9) Allergic rhinitis Angina At risk for sleep apnea Back pain Diabetes mellitus Diabetes mellitus type II Gout Myocardial infarction Obesity Histories Past Medical History: Active Diabetes mellitus (378672530) Obesity (2168037942) Family History: Coronary heart disease Grandfather (M) Grandmother (M) , parents have HTN Procedure history: Eye surgery. Right ankle surgery for fx, pinning removed. Tonsils. Social History Social & Psychosocial Habits Alcohol 06/16/2019 Alcohol Use History, Social Habits No Substance Abuse 06/16/2019 Recreational Drug Use History No Tobacco 06/16/2019 Smoking Status Never (less than 100 in l employeed. Review of Systems Constitutional: No fever, No chills, No weight gain, No weight loss. Eye: No blurring, No double vision, No visual disturbances. Ear/Nose/Mouth/Throat: No dysphagia, No nasal congestion, No sore throat. Respiratory: No shortness of breath, No cough, No hemoptysis, No wheezing. Cardiovascular: chest pain yesterday but none today, No palpitations, No peripheral edema. Gastrointestinal: No nausea, No vomiting, No diarrhea, No constipation, No abdominal pain, No melena, No rectal bleeding. Genitourinary: No dysuria, No hematuria. Hematology/Lymphatics: No bruising tendency, No bleeding tendency. Musculoskeletal: No joint pain, No muscle pain. Integumentary: No rash, No skin lesion. Neurologic: had CHURCH with nitro yesterday but none today , No confusion. Psychiatric: No anxiety, No depression. Objective VS/Measurements Vitals Signs (last 24 hrs) Last Charted Minimum Maximum Temp 96.8 (JUN 16:08) 96.8 (JUN 16:08) 96.8 (JUN 16:08) Mon HR 92 (JUN 16 12:45) 78 (JUN 16:15) 92 (JUN 16 12:45) Periph HR 83 (JUN 16:08) 83 (JUN 16:08) 83 (JUN 16:08) Resp Rate H 25 (JUN 16:45) 16 (JUN 16:08) H 25 (JUN 16 11:30) SBP 112 (JUN 16 12:45) 109 (JUN 16 12:00) 128 (JUN 16:08) DBP 65 (JUN 16 12:45) 64 (JUN 16 11:30) 76 (JUN 16:08) MAP 84 (JUN 16 12:45) 79 (JUN 16 12:00) 86 (JUN 16:15) SpO2 96 (JUN 16 12:45) 95 (JUN 16 11:30) 98 (JUN 16:08) General: Alert and oriented, No acute distress. Eye: Pupils are equal, round and reactive to light, Extraocular movements are intact. HENT: Normocephalic, Normal hearing. Neck: Supple, No carotid bruit, No jugular venous distention. Respiratory: Lungs are clear to auscultation, Respirations are non-labored, Breath sounds are equal. Cardiovascular: Normal rate, Regular rhythm, No murmur, No edema. Gastrointestinal: Soft, Non-tender, Non-distended, Normal bowel sounds, No organomegaly. Musculoskeletal: Normal range of motion, Normal strength, No tenderness. Integumentary: Warm, Dry. Neurologic: Alert, Oriented, No focal deficits. Psychiatric: Cooperative, Appropriate mood & affect, Normal judgment. No qualifying data available Results Review lab work from [facility] not sent CTA chest- fatty liver but no acute process echocardiogram: ef of 55% Impression and Plan acute anterior chest pain - now resolved - going for [facility] today - start pepcid - check lipid panel in am NSTEMI - troponins reportedly elevated at [facility] - [facility] today type 2 dm - hold metformin - start SSI - check a1c in am obesity - nutrition d/w family at bedside medical record reviewed Code status: insurance account specialist spent: 35 min Linda Perez Hospitalist Physical Examination VS/Measurements Vitals Signs (last 24 hrs) Last Charted Minimum Maximum Temp 96.8 (JUN 16:08) 96.8 (JUN 16:) 96.8 (JUN 16:) Mon HR 92 (JUN 16 12:45) 78 (JUN 16 12:15) 92 (JUN 16 12:45) Periph HR 83 (JUN 16:) 83 (JUN 16:08) 83 (JUN 16:08) Resp Rate H 25 (JUN 16 12:45) 16 (JUN 16:08) H 25 (JUN 16:30) SBP 112 (JUN 16 12:45) 109 (JUN 16 12:00) 128 (JUN 16:08) DBP 65 (JUN 16 12:45) 64 (JUN 16 11:30) 76 (JUN 16:08) MAP 84 (JUN 16 12:45) 79 (JUN 16 12:00) 86 (JUN 16 11:15) SpO2 96 (JUN 16 12:45) 95 (JUN 16 11:30) 98 (NOV 22 11:08) Review / Management Results review: No qualifying data available. documented in this encounter Plan of Treatment Not on file documented as of this encounter Visit Diagnoses Not on filedocumented in this encounter
--- OUTSIDE RECORDS SUMMARY | 2025-07-08 15:55 | XMS_ITS | Encounter Summary ---
Author Organization [employer] ([place], [place], [place], [place], [place]) [address] [place] [address] Care Team Providers Care Homicide Squad Lieutenant Name Role Phone Unavailable Primary Care Provider Unavailabl e Encounter Details Date Type Department Care Team (Late st Contact Info) Description 06/16/2019 Transcribed Document [facility] [place] [address] [place] [address] ProviderLayton MD [facility] [place], [place] [id number] Social History Tobacco Use Types Packs/Day Years Used Date Smoking Tobacco: Never Assessed Sex and Gender Information Value Date Recorded Sex Assigned at Not on file Legal Sex Male 6:48 PM CDT Gender Identity Not on file Sexual Orientation Not on file documented as of this encounter Miscellaneous Notes * Cerner Conversion Note - Historical ProviderMD - 06/16/2019 3:31 PM SILO OPERATOR Pain Assessment Entered On: 06/16/2019 23:50 EST Performed On: 06/16/2019 22:23 EST by CHASIDY ALBARRAN RN Intervention Information: acetaminophen Performed by CHASIDY ALBARRAN RN on 06/16/2019 21:23:00 EST acetaminophen,650mg Oral,Other (See Comment) Pain Assessment Pain Assessment : Follow-up assessment Pain Improved by Intervention : Yes Pain Comment : Pt asleep CHASIDY ALBARRAN RN - 06/16/2019 23:49 EST Electronically signed by Madina [facility] Conversion Turner In Cerner at 11/09/2022 1:12 PM CDT documented in this encounter Plan of Treatment Not on file documented as of this encounter Visit Diagnoses Not on filedocumented in this encounter
--- OUTSIDE RECORDS SUMMARY | 2025-07-08 15:55 | XMS_ITS | Encounter Summary ---
Author Organization [employer] ([place], [place], [place], [place], [place]) Address [address] [place] [address] Care Team Providers Care Research Programmer Name Role Phone Unavailable Primary Care Provider Unavailabl e Encounter Details Date Type Department Care Team (Late st Contact Info) Description 11/06/2020 Transcribed Document [facility] [place] Family Medicine [facility] [place] [address] ProviderLayton MD [address] [place] [id number] Social History Tobacco Use Types Packs/Day Years Used Date Smoking Tobacco: Never Assessed Sex and Gender Information Value Date Recorded Sex Assigned at Not on file Legal Sex Male 6:48 PM CDT Gender Identity Not on file Sexual Orientation Not on file documented as of this encounter Miscellaneous Notes * Cerner Conversion Note - Layton ProviderMD - 11/06/2020 8:48 AM CDT ED Triage Entered On: 11/06/2020 8:57 EDT Performed On: 11/06/2020 8:52 EDT by RODRIGUEZ COOPER RN ED Triage Across the Room Chief Complaint : pt c/o chest pain since last night, hx heart attack 2 years ago, some pain in mid-back and left arm, 81mg aspirin this a.m. Triage Date/Time : 11/06/2020 8:52 EDT RODRIGUEZ COOPER RN - 11/06/2020 8:52 EDT DCP GENERIC CODE Tracking Acuity : 2 - Emergent Tracking Group : [facility] ED RODRIGUEZ COOPER RN - 11/06/2020 8:52 EDT Mode of Arrival : Ambulatory Transported to ED by : Private vehicle To Room Via : Ambulate Accompanied By : Unaccompanied ED Vital Signs : Document Height & Weight : Document ED Allergies : Document ED Reason for Visit : Document Tetanus Immunization : Less than 5 years RODRIGUEZ COOPER RN - 11/06/2020 8:52 EDT Infectious Disease History Has the patient ever been tested for COVID-19? : Yes, Patient stated results Positive Date of COVID-19 test known? : No Does patient have symptoms of COVID-19? : No COVID19 Screening : No Experiencing Infectious Disease Symptoms : No symptoms Physical contact outside [place] in the last 30 days : No Infectious Disease History : Chicken pox/Shingles, MRSA Tuberculosis Symptoms : None RODRIGUEZ COOPER RN - 11/06/2020 8:52 EDT Vital Signs ED Temperature Source : Oral Temperature Mode : Fahrenheit Temperature, Fahrenheit : 98.6 Deg F ED Pain : No Clinical Temperature, C : 37 Deg C Oxygen Therapy Mode : Room air Peripheral Pulse Rate : 95 bpm Respiratory Rate : 21 Breaths/Min (HI) Systolic Blood Pressure : 145 mmHg (HI) Diastolic Blood Pressure : 74 mmHg Oxygen Saturation : 96 % RODRIGUEZ COOPER RN - 11/06/2020 8:52 EDT Allergy (As Of: 11/06/2020 08:57:21 EDT) Allergies (Active) No Known Allergies Estimated Onset Date: Unspecified ; Created By: CELESTINO RASMUSSEN RN; Reaction Status: Active ; Category: Drug ; Substance: No Known Allergies ; Type: Allergy ; Updated By: CELESTINO RASMUSSEN RN; Reviewed Date: 11/06/2020 8:54 EDT Diagnosis Control ED (As Of: 11/06/2020 08:57:21 EDT) Problems(Active) Allergic rhinitis (SNOMED CT :750213434 ) Name of Problem: Allergic rhinitis ; Recorder: CELESTINO RASMUSSEN RN; Confirmation: Confirmed ; Classification: Medical ; Code: [id number] ; Contributor System: [employer] ; Last Updated: 06/17/2019 13:06 EST ; Life Cycle Date: 06/17/2019 ; Life Cycle Status: Active ; Vocabulary: SNOMED CT At risk for sleep apnea (IMO :24161432 ) Name of Problem: At risk for sleep apnea ; Recorder: SYSTEM, SYSTEM; Confirmation: Confirmed ; Classification: Medical ; Code: 69678265 ; Last Updated: 06/17/2019 13:06 EST ; Life Cycle Date: 06/17/2019 ; Life Cycle Status: Active ; Vocabulary: IMO CAD - Coronary artery disease (SNOMED CT :1262808508 ) Name of Problem: CAD - Coronary artery disease ; Recorder: ELOINA DEWEY RN; Confirmation: Confirmed ; Classification: Medical ; Code: 7389194043 ; Contributor System: COMMUNICATIONS INFRASTRUCTURE INVESTMENTSChart ; Last Updated: 08/15/2019 8:28 EST ; Life Cycle Status: Active ; Vocabulary: SNOMED CT CAD (coronary artery disease) (SNOMED CT :48298895 ) Name of Problem: CAD (coronary artery disease) ; Recorder: MARTI PAGAN NP-FAM; Confirmation: Confirmed ; Classification: Medical ; Code: 77540687 ; Contributor System: COMMUN[employer]S INFRASTRUCTURE INVESTMENTSChart ; Last Updated: 06/17/2019 13:01 EST ; Life Cycle Date: 06/17/2019 ; Life Cycle Status: Active ; Responsible Provider: MARTI PAGAN NP-FAM; Vocabulary: SNOMED CT DM2 (diabetes mellitus, type 2) (SNOMED CT :660702956 ) Name of Problem: DM2 (diabetes mellitus, type 2) ; Recorder: MARTI PAGAN NP-FAM; Confirmation: Confirmed ; Classification: Medical ; Code: 183354203 ; Contributor System: COMMUN[employer]S INFRASTRUCTURE INVESTMENTSChart ; Last Updated: 06/17/2019 13:01 EST ; Life Cycle Date: 06/17/2019 ; Life Cycle Status: Active ; Responsible Provider: MARTI PAGAN NP-FAM; Vocabulary: SNOMED CT Dyslipidemia (high LDL; low HDL) (SNOMED CT :5410525554 ) Name of Problem: Dyslipidemia (high LDL; low HDL) ; Recorder: MARTI PAGAN NP-FAM; Confirmation: Confirmed ; Classification: Medical ; Code: 1763967992 ; Contributor System: [employer]RASTRUCTURE INVESTMENTSChart ; Last Updated: 06/17/2019 13:06 EST ; Life Cycle Date: 06/17/2019 ; Life Cycle Status: Active ; Responsible Provider: MARTI PAGAN NP-FAM; Vocabulary: SNOMED CT HLD - Hyperlipidemia (SNOMED CT :114866595 ) Name of Problem: HLD - Hyperlipidemia ; Recorder: ELOINA DEWEY RN; Confirmation: Confirmed ; Classification: Medical ; Code: 279000387 ; Contributor System: PowerChart ; Last Updated: 08/15/2019 8:28 EST ; Life Cycle Status: Active ; Vocabulary: SNOMED CT HTN - Hypertension (SNOMED CT :2399244202 ) Name of Problem: HTN - Hypertension ; Recorder: ELOINA DEWEY RN; Confirmation: Confirmed ; Classification: Medical ; Code: 6328209804 ; Contributor System: PowerChart ; Last Updated: 08/15/2019 8:28 EST ; Life Cycle Status: Active ; Vocabulary: SNOMED CT Severe obesity (BMI 35.0-35.9 with comorbidity) (SNOMED CT :7329574579 ) Name of Problem: Severe obesity (BMI 35.0-35.9 with comorbidity) ; Recorder: MARTI PAGAN NP-FAM; Confirmation: Confirmed ; Classification: Medical ; Code: 8865599671 ; Contributor System: PowerChart ; Last Updated: 06/17/2019 13:06 EST ; Life Cycle Date: 06/17/2019 ; Life Cycle Status: Active ; Responsible Provider: MARTI PAGAN NP-FAM; Vocabulary: SNOMED CT Type 2 diabetes mellitus (SNOMED CT :576415528 ) Name of Problem: Type 2 diabetes mellitus ; Recorder: ELOINA DEWEY RN; Confirmation: Confirmed ; Classification: Medical ; Code: 270841576 ; Contributor System: PowerChart ; Last Updated: 08/15/2019 8:28 EST ; Life Cycle Status: Active ; Vocabulary: SNOMED CT Diagnoses(Active) Chest pain Date: 11/06/2020 ; Diagnosis Type: Reason For Visit ; Confirmation: Complaint of ; Clinical Dx: Chest pain ; Classification: Medical ; Clinical Service: Emergency medicine ; Code: PNED ; Probability: 0 ; Diagnosis Code: [id number] ED Height and Weight Height Source : Stated Height Entry Format : Simpson Height, Feet : 5 ft(Converted to: 152 cm, 60 Inch) Height, Inches : 11 Inch(Converted to: 0 ft 11 Inch, 27.94 cm) Clinical Height : 180.34 cm Weight Source, ED : Critical estimated dosing weight Weight Entry Format : Simpson Weight, Pounds : 270 lb Clinical Dosing Weight : 122.73 kg Body Surface Area (BSA) : 2.4 m2 Body Mass Index : 37.7 kg/m2 (HI) Crandall Body Weight (IBW) : 74.31 kg RODRIGUEZ COOPER RN - 11/06/2020 8:52 EDT Electronically signed by Madina [facility] Conversion Salvage Mechanic Cerner at 11/09/2022 12:56 PM CDT documented in this encounter Plan of Treatment Not on file documented as of this encounter Visit Diagnoses Not on filedocumented in this encounter
--- OUTSIDE RECORDS SUMMARY | 2025-07-08 15:55 | XMS_ITS | Encounter Summary ---
Author Organization [employer] ([place], [place], [place], [place], [place]) Address [address] [facility] [address] Care Team Providers Care Grain Mill Products Inspector Name Role Phone Unavailable Primary Care Provider Unavailabl e Encounter Details Date Type Department Care Team (Late st Contact Info) Description 08/18/2019 Transcribed Document [facility] Cardiology [address] [id number] Jared Hutchison MD [address] [facility] [address] [place] [address] Social History Tobacco Use Types Packs/Day Years Used Date Smoking Tobacco: Never Assessed Sex and Gender Information Value Date Recorded Sex Assigned at Not on file Legal Sex Male 6:48 PM CDT Gender Identity Not on file Sexual Orientation Not on file documented as of this encounter Miscellaneous Notes * Cerner Conversion Note - Jared Hutchison MD - 08/18/2019 4:10 PM EST DATE OF SERVICE: 08/16/2019 EXERCISE MYOCARDIAL PERFUSION SCAN INDICATION: 39-year-old male with chest pain. PROTOCOL: Low-dose, high-dose technetium-99m same-day protocol with standard Arturo treadmill exercise stress. FINDINGS: 1. The patient exercised for 11 minutes reaching a maximum heart rate of 160 beats per minute (target 152 beats per minute) and a maximum blood pressure of 185/55. There was no complaint of chest pain. 2. Baseline ECG is normal. ECG during treadmill stress shows less than [address]-segment change. No significant arrhythmia. 3. Stress images show uniform myocardial uptake. 4. Rest images show uniform myocardial uptake. 5. Gated images show LVEF of 64%. CONCLUSION: 1. Normal exercise myocardial perfusion scan. 2. Normal left ventricular ejection fraction. 3. Good exercise tolerance. /[id number] MD SHERRY Lopez/ANIVAL / SHERRY / MODL /[id number] documented in this encounter Plan of Treatment Not on file documented as of this encounter Visit Diagnoses Not on filedocumented in this encounter
--- OUTSIDE RECORDS SUMMARY | 2025-07-08 15:55 | XMS_ITS | Encounter Summary ---
Author Organization [employer] ([place], [place], [place], [place], [place]) Address [address] [place] [address] Care Team Providers Care Manager Of Information Name Role Phone Unavailable Primary Care Provider Unavailabl e Encounter Details Date Type Department Care Team (Late st Contact Info) Description 11/06/2020 Transcribed Document [facility] [place] Family Medicine [address] [place] [address] ProviderLayton MD [address] [place], [place] [address] Social History Tobacco Use Types Packs/Day Years Used Date Smoking Tobacco: Never Assessed Sex and Gender Information Value Date Recorded Sex Assigned at Not on file Legal Sex Male 6:48 PM CDT Gender Identity Not on file Sexual Orientation Not on file documented as of this encounter Miscellaneous Notes * Cerner Conversion Note - Layton ProviderMD - 11/06/2020 8:48 AM CDT Broset Violence Assessment Entered On: 11/06/2020 9:03 EDT Performed On: 11/06/2020 9:03 EDT by LEATHA CASAS RN Broset Violence Assessment Broset Violence Checklist of Symptoms : None Broset Violence Symptoms Subtotal : 0 Broset Violence Symptoms Indicator : Low risk (0) LEATHA CASAS RN - 11/06/2020 9:03 EDT documented in this encounter Plan of Treatment Not on file documented as of this encounter Visit Diagnoses Not on filedocumented in this encounter
--- OUTSIDE RECORDS SUMMARY | 2025-07-08 15:55 | XMS_ITS | Encounter Summary ---
Author Organization [employer] ([place], [place], [place], [place], [place]) Address [address] [place] [address] Care Team Providers Care Legal Support Manager Name Role Phone Unavailable Primary Care Provider Unavailabl e Encounter Details Date Type Department Care Team (Late st Contact Info) Description 06/16/2019 Transcribed Document [facility] [place] Family Medicine [address] [place] [address] ProviderLayton MD [address] [place], [place] [address] Social History Tobacco Use Types Packs/Day Years Used Date Smoking Tobacco: Never Assessed Sex and Gender Information Value Date Recorded Sex Assigned at Not on file Legal Sex Male 6:48 PM CDT Gender Identity Not on file Sexual Orientation Not on file documented as of this encounter Miscellaneous Notes * Cerner Conversion Note - Historical ProviderMD - 06/16/2019 11:59 AM POSTAL WORKER Event Note Entered On: 06/16/2019 12:00 EST Performed On: 06/16/2019 11:59 EST by CELESTINO RASMUSSEN RN Event Note Event Date/Time : 06/16/2019 10:49 EST CELESTINO RASMUSSEN RN - 06/16/2019 11:59 EST Description of Event : 1049: Pt arrrived from [facility] via EMS. Denies any chest pain or other discomfort at present. Monitored NSR. IV left arm without signs of infiltration. Hx taken and prep done for cardiac cath. Estrella Rasmussen RN 1130: Kristal Moise RN for Dr. Hutchison in to see pt. To do cardiac cath today. Pt remains NPO. Had breakfast at 0830. C. Dieruf, RN 1330: Hospitalist in to talk with pt and family. Awaiting cardiac cath. Continue to deny chest pain. Estrella Rasmussen Rn 1530: IV lock flushed and patent. Still awaiting cardial cath. NSR. Denies discomfort. Estrella Rasmussen RN 1600: To drop crew laborer per christie. ALISHA Soni, CELESTINO Vegas RN - 06/16/2019 16:00 EST Electronically signed by [facility] Conversion American Indian Studies Professor Cerner at 11/09/2022 12:54 PM CDT documented in this encounter Plan of Treatment Not on file documented as of this encounter Visit Diagnoses Not on filedocumented in this encounter
--- OUTSIDE RECORDS SUMMARY | 2025-07-08 15:55 | XMS_ITS | Encounter Summary ---
Author Organization [employer] ([place], [place], [place], [place], [place]) Address [address] [place] [address] Care Team Providers Care Line Up Worker Name Role Phone Unavailable Primary Care Provider Unavailabl e Encounter Details Date Type Department Care Team (Late st Contact Info) Description 08/15/2019 Transcribed Document [facility] [place] [address] ProviderLayton MD [address] [place] [address] Social History Tobacco Use Types Packs/Day Years Used Date Smoking Tobacco: Never Assessed Sex and Gender Information Value Date Recorded Sex Assigned at Not on file Legal Sex Male 6:48 PM CDT Gender Identity Not on file Sexual Orientation Not on file documented as of this encounter Miscellaneous Notes * Cerner Conversion Note - Layton Singh MD - 08/15/2019 7:22 AM ELECTRIC WELDER Patient: ERICH CHAO Age: 39 years Sex: Male : 1980 Associated Diagnoses: Chest pain Author: LUIS ANGEL VALDES MD Basic Information Additional information: Chief Complaint from Nursing Triage Note : Chief Complaint 08/15/2019 7:09 EST Chief Complaint Patient complains of chest discomfort that is intermittent since yesterday, reports hx of 1 cardiac stent 05/2019. Denies SOA, denies Nausea . History of Present Illness The patient presents with chest pain. The onset was 1 days ago. The course/duration of symptoms is fluctuating in intensity. Location: substernal. Radiating pain: none. The character of symptoms is tightness and pressure. The degree at onset was minimal. The degree at maximum was moderate. The degree at present is minimal. The exacerbating factor is none. The relieving factor is none. Risk factors consist of coronary artery disease, hypertension, diabetes mellitus, not pulmonary embolism and not deep vein thrombosis. Prior episodes: cardiac. Therapy today None. Associated symptoms: none. Review of Systems Constitutional symptoms: No fever, no chills, no sweats, no weakness, no fatigue. Skin symptoms: No rash, Eye symptoms: Vision unchanged, no pain, no discharge, no blurred vision. ENMT symptoms: No ear pain, no sore throat, no nasal congestion. Respiratory symptoms: No shortness of breath, no cough. Cardiovascular symptoms: Chest pain, no palpitations, no syncope. Gastrointestinal symptoms: No abdominal pain, no nausea, no vomiting, no diarrhea. Genitourinary symptoms: No dysuria, no hematuria. Musculoskeletal symptoms: No back pain, no Joint pain. Neurologic symptoms: No headache, no dizziness, no numbness, no weakness. Health Status Allergies: Allergic Reactions (Selected) No Known Allergies. Medications: (Selected) Inpatient Medications Ordered Normal Saline Flush: 10 mL, IV Push, See Comment aspirin: 324 mg, Chew, 1-Time Prescriptions Prescribed Pepcid 20 mg oral tablet: [...] multivitamin: 1 Tab, Oral, Daily, 0 Refill(s). Past Medical/ Family/ Social History Surgical history: Cardiac Stent performed by RENETTA GILLIS MD-SHANE on 06/16/2019 at 39 Years. Comments: 06/27/2019 10:03 ELOINA VILA RN RESULTS OF INTERVENTION: At angiography, the middle circumflex contained critical stenosis of greater than 90%. Following PTCA and drug-eluting stent placement, this is reduced to 0% with BLANCA-3 flow and no residual dissection. CONCLUSION: [id number] myocardial infarction due to the combination of [...] Status Never (less than 100 in l , Reviewed as documented in chart. Problem list: Active Problems (6) Allergic rhinitis At risk for sleep apnea CAD (coronary artery disease) DM2 (diabetes mellitus, type 2) Dyslipidemia (high LDL; low HDL) Severe obesity (BMI 35.0-35.9 with comorbidity) , per nurse's notes. Physical Examination Vital Signs Vital Signs/Vital Measures 08/15/2019 7:12 EST Blood Pressure Location Arm, right upper Blood Pressure Source Non-Invasive BP Device Temperature Source Oral Temperature Mode Fahrenheit Temperature, Fahrenheit 98.7 Deg F Clinical Temperature, C 37.1 Deg C Peripheral Pulse Rate 75 bpm Respiratory Rate 16 Breaths/Min Oxygen Saturation 97 % Oxygen Therapy Mode Room air . Measurements 08/15/2019 7:09 EST Height Source Stated Height Entry Format Crook Height/Length, SWEDISH (ft) 5 ft Height/Length SWEDISH 11 Inch CLINICALHEIGHT 180.34 cm [place] Body Weight 74.31 kg Weight Source, ED Standing scale Weight Entry Format Crook Weight Estonian lb 254 lb CLINICALWEIGHT 115.45 kg Body Surface Area (BSA) 2.34 m2 Body Mass Index 35.5 kg/m2 HI . Oxygen Saturation 08/15/2019 7:12 EST Oxygen Saturation 97 % . General: Alert, no acute distress. Skin: Warm. Head: Normocephalic. Neck: Supple. Eye: Sclera: not icteric. Ears, nose, mouth and throat: Oral mucosa moist. Cardiovascular: Regular rate and rhythm, No murmur, Normal peripheral perfusion, No edema. Respiratory: Lungs are clear to auscultation, respirations are non-labored, breath sounds are equal. Chest wall: No tenderness. Back: Nontender. Gastrointestinal: Soft, Nontender, Non distended, Normal bowel sounds. Neurological: No focal neurological deficit observed. Lymphatics: No lymphadenopathy. Psychiatric: Cooperative. Medical Decision Making Documents reviewed: Emergency department nurses' notes. Electrocardiogram: Time 08/15/2019 07:11:00, rate 68, normal sinus rhythm, No ST changes, no ectopy, normal NE & QRS intervals, EP Interp. Electrocardiogram: Time 08/15/2019 10:18:00, rate 55, No ST changes, no ectopy, normal NE & QRS intervals, EP Interp, sinus bradycardia. Results review: Labs (Last four charted values) WBC 8.2 (AUG 15) HB 16.0 (AUG 15) HCT 46.3 (AUG 15) Plt 224 (AUG 15) Na 138 (AUG 15) K 3.9 (AUG 15) Cl 104 (AUG 15) CO2 31 (AUG 15) BUN 15 (AUG 15) Cr 1.00 (AUG 15) Glu R H 113 (AUG 15) Ca 9.5 (AUG 15) PT 11.1 (AUG 15) INR 1.0 (AUG 15) PTT 26.4 (AUG 15) AST 37 (AUG 15) ALT 44 (AUG 15) ALK P 75 (AUG 15) T Bili 0.7 (AUG 15) PTN 7.5 (AUG 15) ALB 3.7 (AUG 15) Lipase 247 (AUG 15) Troponin <0.015 (AUG 15) <0.015 (AUG 15) . Radiology results: Radiology Results (Last 48 hours) [id number] -- 08/15/2019 07:03 CR Chest 1 Vw Portable (08/15/2019 07:28) Result: PORTABLE CHEST 08/15/2019 6:19 AMHISTORY: Precordial chest painCOMPARISON: June 2019FINDINGS: The cardiac silhouette is normal in size. The mediastinaland hilar contours are unremarkable. The lungs are clear. There is nopneumothorax. The visualized osseous structures demonstrate no acuteabnormalities.IMPRESSION: No acute cardiopulmonary process. Images reviewed, interpreted, and dictated by Dr. Dave Whitney.Transcribed by Stacey Child (R).I have personally viewed, interpreted and dictated the examination. Ihave read and agree with the above final transcribed report. . Impression and Plan Diagnosis Chest pain - Discharge, Medical Plan Condition: Improved, Stable. Disposition: Discharged Admit/Transfer/Discharge: Discharge (Order): Start: 08/15/2019 11:49 EST, Discharge to: Home. Patient was given the following educational materials: Nonspecific Chest Pain. Follow up with: LUANN MENJIVAR Within 2 to 3 days; RENETTA GILLIS Within 1 day. Counseled: Patient, Regarding diagnosis, Regarding diagnostic results, Regarding treatment plan, Patient indicated understanding of instructions. Notes: Patient presented with mild chest pain now resolved. States it does not feel similar to his prior MO. EKG troponin negative ??2. Wells low risk for PE, d-dimer negative. Patient seen and evaluated by cardiology who states that he is safe for discharge home and have arranged for a outpatient stress test tomorrow. Given clear follow-up and return precautions.. documented in this encounter Plan of Treatment Not on file documented as of this encounter Visit Diagnoses Not on filedocumented in this encounter
--- OUTSIDE RECORDS SUMMARY | 2025-07-08 15:55 | XMS_ITS | Encounter Summary ---
Author Organization [employer] ([place], [place], [place], [place], [place]) Address [address] [place] [address] Care Team Providers Care Scheduler Name Role Phone Unavailable Primary Care Provider Unavailabl e Encounter Details Date Type Department Care Team (Late st Contact Info) Description 06/16/2019 Transcribed Document [facility] Cardiology [address] [id number] Jared Hutchison MD [address] [facility] [address] [place] [address] Social History Tobacco Use Types Packs/Day Years Used Date Smoking Tobacco: Never Assessed Sex and Gender Information Value Date Recorded Sex Assigned at Not on file Legal Sex Male 6:48 PM CDT Gender Identity Not on file Sexual Orientation Not on file documented as of this encounter Miscellaneous Notes * Cerner Conversion Note - Jared Hutchison MD - 06/16/2019 6:55 PM EST DATE OF SERVICE: 06/16/2019 INDICATION: 39-year-old male with diabetes, but no previous cardiac history, presented to [facility] with chest pressure and had serial elevation in troponin consistent with a doa-GS-lopzvlwpz myocardial infarction. At that hospital, he received aspirin and Brilinta and was started on a statin and was transferred for cardiac catheterization. PROCEDURES PERFORMED: 1. Percutaneous transluminal coronary angioplasty and drug-eluting stent placement, middle circumflex. 2. Attempted wire crossing of proximal right coronary artery, chronic total occlusion. 3. Selective coronary angiography. 4. Left heart catheterization. 5. Right radial and brachial artery selective angiography. PROCEDURAL DETAILS: 1. A 6-Micronesian sheath was inserted in the right radial artery after access of the micropuncture needle. Coronary angiography was performed using a 5-Micronesian Mariusz and a 5-Micronesian Elmo diagnostic catheters. Between exchanging the catheters from the Mariusz to the Elmo, there was difficulty re-advancing the J-tipped guidewire through the middle arm segment. The Elmo catheter was positioned in the area of the distal arm, and selective angiography of the radial artery and brachial artery was performed. 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 Nitroglycerin was given. I was able to use a Glidewire to advance the Elmo catheter and finish the angiographic study. However, when the decision was made to proceed with intervention, it was clear shoveling and manipulating guides through this anomalous small spasmed radial artery would not be the best approach, so we switched to femoral artery access. A 6-Micronesian sheath was inserted in the right femoral artery. Heparin was administered to achieve a therapeutic ACT. 2. Intervention of circumflex. A 6-Micronesian CLS 3.5 guide catheter and a short Prowater coronary guidewire were used to cross the circumflex stenosis without difficulty. 3. A 2.5 x 15 mm Emerge balloon was inflated in the middle circumflex to 10 atmospheres. 4. A 3.5 x 20 mm Synergy stent was deployed in the middle circumflex to 11 atmospheres with good expansion. Angiography revealed a good result. The interventional equipment and sheath were removed. 5. Attempted wire crossing of RCA CHIEF CONCIERGE. A JR4 guide catheter was used to engage the RCA. Initially, a PT2 wire was advanced through the predominance of the subtotally occluded segment to the occluded segment, where the wire traveled subintimal and could not be redirected. This wire was removed, and a Aging Box Hand 200 wire was used, which selected a different tract, but again ended up subintimal. It was apparent at this point that this was indeed a CHIEF CONCIERGE and that future intervention should be considered with the appropriate approach of bilateral access with the option for possible retrograde approach. The wire and guide were removed. Angiography of the right femoral artery was performed, and a Perclose closure was deployed with good hemostasis. A radial band was applied to the radial access site with good hemostasis. FINDINGS: 1. Hemodynamics: LV 131/0, aorta 119/74. 2. Angiographic Findings: a. 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 The artery is relatively small. b. Left main coronary artery has mild distal plaque with no significant stenosis. c. Circumflex has an ostial stenosis in the range of 25% to 50%. In the middle segment just past the first significant obtuse marginal, there is a severe stenosis of greater than 90%. d. LAD has proximal to middle diffuse mild plaque in the range of 25% to 50% stenosis. There are left to right collaterals, predominantly septal to the distal RCA distribution. e. RCA is dominant. In the proximal segment, there is diffuse severe disease with subtotal occlusion followed by an apparent total occlusion just before the first significant RV marginal. There is competitive flow in the distal RCA suggesting some bridging collateralization. RESULTS OF INTERVENTION: At angiography, the middle circumflex contained critical stenosis of greater than 90%. Following PTCA and drug-eluting stent placement, this is reduced to 0% with BLANCA-3 flow and no residual dissection. CONCLUSION: Tjd-AI-cdaxtpzwq myocardial infarction due to the combination of severe circumflex stenosis and chronic total occlusion of the right coronary artery, which is dominant. /[id number] MD SHERRY Lopez/ANIVAL / SHERRY / MODL /[id number] documented in this encounter Plan of Treatment Not on file documented as of this encounter Visit Diagnoses Not on filedocumented in this encounter
--- OUTSIDE RECORDS SUMMARY | 2025-07-08 15:55 | XMS_ITS | Encounter Summary ---
Author Organization [employer] ([place], [place], [place], [place], [place]) Address [address] [place] [address] Care Team Providers Care Kinesiologist Name Role Phone Unavailable Primary Care Provider Unavailabl e Encounter Details Date Type Department Care Team (Late st Contact Info) Description 11/06/2020 Transcribed Document [facility] Family Medicine [facility] [address] ProviderLayton MD [facility] [place], [place] [id number] Social History Tobacco Use Types Packs/Day Years Used Date Smoking Tobacco: Never Assessed Sex and Gender Information Value Date Recorded Sex Assigned at Not on file Legal Sex Male 6:48 PM CDT Gender Identity Not on file Sexual Orientation Not on file documented as of this encounter Miscellaneous Notes * Cerner Conversion Note - Historical ProviderMD - 11/06/2020 1:51 PM CDT Electronically signed by Madina [facility] Conversion Distribution Sales Representative Keli at 11/09/2022 1:07 PM CDT documented in this encounter Plan of Treatment Not on file documented as of this encounter Visit Diagnoses Not on filedocumented in this encounter
--- OUTSIDE RECORDS SUMMARY | 2025-07-08 15:55 | XMS_ITS | Encounter Summary ---
Author Organization [facility] Address [address] [place] [address] Care Team Providers Care Supervisor Intermediates Name Role Phone Maria Teresa Frey APRN Primary Care Provider [phone] Encounter Details Date Type Department Care Team (Latest Contact Info) Description 06/29/2025 Travel Social History Tobacco Use Types Packs/Day Years [...] on file documented as of this encounter Plan of Treatment Not on file documented as of this encounter Visit Diagnoses Not on filedocumented in this encounter Additional Health Concerns Infection Onset Date Last Indicated Resolved Time COVID (rule out) 06/29/2025 06/29/2025 06/29/2025 11:01 AM EST Influenza 06/29/2025 06/29/2025 documented as of this encounter Care Teams Supervisor Intermediates Relationship Specialty Start Date End Date Maria Teresa Frey APRN [address] [place] [address] PCP - General Family Medicine 12/08/24 documented as of this encounter
--- OUTSIDE RECORDS SUMMARY | 2025-07-08 15:55 | XMS_ITS | Encounter Summary ---
Author Organization [employer] ([place], [place], [place], [place], [place]) Address [address] [place] [address] Care Team Providers Care Superintendent Mechanical Name Role Phone Unavailable Primary Care Provider Unavailabl e Encounter Details Date Type Department Care Team (Late st Contact Info) Description 11/06/2020 Transcribed Document [facility] Medicine [address] [place] [address] ProviderLayton MD [address] [place] [address] Social History Tobacco Use Types Packs/Day Years Used Date Smoking Tobacco: Never Assessed Sex and Gender Information Value Date Recorded Sex Assigned at Not on file Legal Sex Male 6:48 PM CDT Gender Identity Not on file Sexual Orientation Not on file documented as of this encounter Miscellaneous Notes * Cerner Conversion Note - Layton ProviderMD - 11/06/2020 8:48 AM CDT [place] Suicide Severity Rating Scale (C-SSRS) Entered On: 11/06/2020 9:03 EDT Performed On: 11/06/2020 9:03 EDT by LEATHA CASAS RN [place] Suicide Severity Rating Scale (C-SSRS) CSSRS Past Month Wish to be : No CSSRS Past Month Suicidal Thoughts : No CSSRS Lifetime Suicide Behavior : No Suicide Severity Rating Score : 0 Suicide Severity Rating : No Additional Care Required at this time LEATHA CASAS RN - 11/06/2020 9:03 EDT documented in this encounter Plan of Treatment Not on file documented as of this encounter Visit Diagnoses Not on filedocumented in this encounter
--- OUTSIDE RECORDS SUMMARY | 2025-07-08 15:55 | XMS_ITS | Encounter Summary ---
Author Organization [employer] ([place], [place], [place], [place], [place]) Address [address] [place] [address] Care Team Providers Care Baseball Coach Name Role Phone Unavailable Primary Care Provider Unavailabl e Encounter Details Date Type Department Care Team (Late st Contact Info) Description 11/06/2020 Transcribed Document [facility] [place] Medicine [facility] [place] [address] ProviderLayton MD [address] [place] [id number] Social History Tobacco Use Types Packs/Day Years Used Date Smoking Tobacco: Never Assessed Sex and Gender Information Value Date Recorded Sex Assigned at Not on file Legal Sex Male 6:48 PM CDT Gender Identity Not on file Sexual Orientation Not on file documented as of this encounter Miscellaneous Notes * Cerner Conversion Note - Layton Singh MD - 11/06/2020 2:10 PM CDT [facility] [place] [address] ERICH CHAO :1980 Visit Time:11/06/2020 Your Visit Summary Your Care Team Primary Provider: LUIS ANGEL VALDES Secondary Provider: Your Diagnosis Chest pain Chest pain Medical Information You may obtain a [...] Up with RENETTA GILLIS When Within 2 to 3 days Where: [address] [facility] [address] [facility] [address] [place] [address]- Business (1) Allergies No Known Allergies Immunizations This Visit No Immunizations Found Medications What How Much When Instructions Next Dose aspirin (aspirin 81 mg oral delayed release tablet) 1 Tablet(s) Oral Every Day atorvastatin (atorvastatin 40 mg oral tablet) 2 Tablet(s) Oral At Bedtime cyanocobalamin (Vitamin B-12) 1 Tablet(s) Oral Every Day famotidine (Pepcid 20 mg oral tablet) 1 Tablet(s) Oral Two Times A Day metFORMIN (metFORMIN 1000 mg oral tablet) 1 Tablet(s) Oral Two Times A Day multivitamin 1 Tablet(s) Oral Every Day ticagrelor (ticagrelor 90 mg oral tablet) 1 Tablet(s) Oral Two Times A Day The home medications listed are only as [...] This Visit (last charted value for your 11/06/2020 visit) Hematology 11/06/2020 9:10 AM WBC: 7.4 K/uL -- Normal range between ( 3.6 and 9.5 ) RBC: 5.17 Million/uL -- Normal range between ( 4.20 and 5.70 ) Hct: 47.7 % -- Normal range between ( 40.1 and 51.0 ) Hgb: 16.6 g/dL -- Normal range between ( 13.5 and 17.3 ) Platelet Count: 203 K/uL -- Normal range between ( 163 and 369 ) MCH: 32.1 pg -- Normal range between ( 25.6 and 32.2 ) MCHC: 34.8 Gram/dL -- Normal range between ( 32.2 and 36.5 ) MCV: 92.3 fL -- Normal range between ( 79.0 and 94.8 ) Slide Review: No Eos %: 1.9 % -- Normal range between ( 0.0 and 7.0 ) [place] #: 0.56 K/uL -- Normal range between ( 0.16 and 1.00 ) Eos #: 0.14 x10(3)/uL -- Normal range between ( 0.00 and 0.80 ) [place] %: 7.6 % -- Normal range between ( 3.0 and 9.0 ) Baso %: 0.4 % -- Normal range between ( 0.0 and 1.5 ) Baso #: 0.03 x10(3)/uL -- Normal range between ( 0.00 and 0.20 ) RDW: 11.5 % -- Normal range between ( 11.7 and 14.9 ) Neut %: 58.9 % -- Normal range between ( 34.0 and 71.0 ) Neut #: 4.34 K/uL -- Normal range between ( 1.56 and 6.13 ) Lymph %: 30.9 % -- Normal range between ( 19.3 and 53.1 ) Lymph #: 2.28 x10(3)/uL -- Normal range between ( 1.00 and 3.90 ) MPV: 10.2 fL -- Normal range between ( 9.4 and 12.4 ) IG#: 0.02 x10(3)/uL -- Normal range between ( 0.00 and 0.05 ) IG%: 0.30 % -- Normal range between ( 0.00 and 0.60 ) General Chemistry 11/06/2020 9:10 AM Creatinine Level: 0.90 mg/dL -- Normal range between ( 0.70 and 1.30 ) Sodium Level: 135 mmol/L -- Normal range between ( 136 and 146 ) Potassium Level: 4.0 mmol/L -- Normal range between ( 3.5 and 5.1 ) Chloride Level: 103 mmol/L -- Normal range between ( 102 and 112 ) Carbon Dioxide Level: 28 mmol/L -- Normal range between ( 21 and 32 ) Anion Gap: 8 -- Normal range between ( 9 and 20 ) Bilirubin Total: 0.5 mg/dL -- Normal range between ( 0.2 and 1.2 ) A/G Ratio: 0.9 -- Normal range between ( 1.1 and 2.5 ) ALT: 65 Units/Liter -- Normal range between ( 16 and 61 ) AST: 40 Units/Liter -- Normal range between ( 5 and 37 ) Globulin: 3.8 Gram/dL -- Normal range between ( 1.5 and 4.5 ) Alk Phos: 82 Units/Liter -- Normal range between ( 27 and 136 ) Bun/Creatinine: 18.9 -- Normal range between ( 8.0 and 20.0 ) Calcium Level: 9.5 mg/dL -- Normal range between ( 8.4 and 10.1 ) eGFR : >60 mL/min/1.73m2 eGFR NonAfrican: >60 mL/min/1.73m2 Glucose Level: 321 mg/dL -- Normal range between ( 74 and 106 ) Blood Urea Nitrogen: 17 mg/dL -- Normal range between ( 7 and 22 ) Protein Total: 7.4 Gram/dL -- Normal range between ( 6.4 and 8.2 ) Albumin Level: 3.6 Gram/dL -- Normal range between ( 3.4 and 5.0 ) Lipase Level: 134 Units/Liter -- Normal range between ( 73 and 393 ) Cardiac Specific Markers 11/06/2020 12:00 PM Troponin I Ultra: <0.015 ng/mL -- Normal range between ( 0.015 and 0.045 ) 11/06/2020 9:10 AM ProBNP: 15 pg/mL -- Normal range between ( 0 and 125 ) Coagulation 11/06/2020 9:10 AM D Dimer Quant: 0.20 mg/L FEU -- Normal range between ( 0.00 and 0.58 ) Diagnostic Radiology 11/06/2020 9:11 AM CR Chest 1 Vw Portable: CR Chest 1 Vw Portable Education Materials Nonspecific Chest Pain, Adult Chest pain can be caused by many different conditions. It can be caused by a condition that is life-threatening and requires treatment right away. It can also be caused by something that is not life-threatening. If you have chest pain, it can be hard to know the difference, so it is important to get help right away to make sure that you do not have a serious condition. Some life-threatening causes of chest pain include: ??? Heart attack. ??? A tear in the body's main blood vessel (aortic dissection). ??? Inflammation around your heart (pericarditis). ??? A problem in the lungs, such as a blood clot (pulmonary embolism) or a collapsed lung (pneumothorax). Some non life-threatening causes of chest pain include: ??? Heartburn. ??? Anxiety or stress. ??? Damage to the bones, muscles, and cartilage that make up your chest wall. ??? Pneumonia or bronchitis. ??? Shingles infection (varicella-zoster virus). Chest pain can feel like: ??? Pain or discomfort on the surface of your chest or deep in your chest. ??? Crushing, pressure, aching, or squeezing pain. ??? Burning or tingling. ??? Dull or sharp pain that is worse when you move, cough, or take a deep breath. ??? Pain or discomfort that is also felt in your back, neck, jaw, shoulder, or arm, or pain that spreads to any of these areas. Your chest pain may come and go. It may also be constant. Your health care provider will do lab tests and other studies to find the cause of your pain. Treatment will depend on the cause of your chest pain. Follow these instructions at home: Medicines ??? Take aunc-kuf-owlhsrd and prescription medicines only as told by your health care provider. ??? If you were prescribed an antibiotic, take it as told by your health care provider. Do not stop taking the antibiotic even if you start to feel better. Lifestyle ??? Rest as directed by your health care provider. ??? Do not use any products that contain nicotine or tobacco, such as cigarettes and e-cigarettes. If you need help quitting, ask your health care provider. ??? Do not drink alcohol. ??? Make healthy lifestyle choices as recommended. These may include: ? Getting regular exercise. Ask your health care provider to suggest some activities that are safe for you. ? Eating a heart-healthy diet. This includes plenty of fresh fruits and vegetables, whole grains, low-fat (lean) protein, and low-fat dairy products. A dietitian can help you find healthy eating options. ? Maintaining a healthy weight. ? Managing any other health conditions you have, such as high blood pressure (hypertension) or diabetes. ? Reducing stress, such as with yoga or relaxation techniques. General instructions ??? Pay attention to any changes in your symptoms. Tell your health care provider about them or any new symptoms. ??? Avoid any activities that cause chest pain. ??? Keep all follow-up visits as told by your health care provider. This is important. This includes visits for any further testing if your chest pain does not go away. Contact a health care provider if: ??? Your chest pain does not go away. ??? You feel depressed. ??? You have a fever. Get help right away if: ??? Your chest pain gets worse. ??? You have a cough that gets worse, or you cough up blood. ??? You have severe pain in your abdomen. ??? You faint. ??? You have sudden, unexplained chest discomfort. ??? You have sudden, unexplained discomfort in your arms, back, neck, or jaw. ??? You have shortness of breath at any time. ??? You suddenly start to sweat, or your skin gets clammy. ??? You feel nausea or you vomit. ??? You suddenly feel lightheaded or dizzy. ??? You have severe weakness, or unexplained weakness or fatigue. ??? Your heart begins to beat quickly, or it feels like it is skipping beats. These symptoms may represent a serious problem that is an emergency. Do not wait to see if the symptoms will go away. Get medical help right away. Call your local emergency services (911 in the [place] Do not drive yourself to the hospital. Summary ??? Chest pain can be caused by a condition that is serious and requires urgent treatment. It may also be caused by something that is not life-threatening. ??? If you have chest pain, it is very important to see your health care provider. Your health care provider may do lab tests and other studies to find the cause of your pain. ??? Follow your health care provider's instructions on taking medicines, making lifestyle changes, and getting emergency treatment if symptoms become worse. ??? Keep all follow-up visits as told by your health care provider. This includes visits for any further testing if your chest pain does not go away. This information is not intended to replace advice given to you by your health care provider. Make sure you discuss any questions you have with your health care provider. Document Revised: 01/12/2019 Document Reviewed: 01/12/2019 [employer] Patient Education ?? 2020 [employer] Emergency Awareness and Preventative Care STROKE [...] Assistance with quitting is available by contacting 3-238-ENSQNOW. This is a free resource providing counseling, support, and referral. Or you may contact your personal physician. National Suicide Prevention Lifeline: The National Suicide Prevention [...] CPR? There are two easy steps: Call if you see a teen or adult [...] was given the opportunity to ask questions. Patient/Metal Die Finisher Name: Patient/Metal Die Finisher Signature: Relationship to Patient: Clinician/Hospital Metal Die Finisher Signature: Please Provide a Telephone Number Where You Can Be Reached: Is it Permissible To Leave a Message? Date: Electronically signed by Madina, [facility] Conversion Adrianna Dickey at 11/09/2022 1:07 PM CDT documented in this encounter Plan of Treatment Not on file documented as of this encounter Visit Diagnoses Not on filedocumented in this encounter
--- OUTSIDE RECORDS SUMMARY | 2025-07-08 15:55 | XMS_ITS | Encounter Summary ---
Author Organization [employer] ([place], [place], [place], [place], [place]) Address [address] [place] [address] Care Team Providers Care Learning Technologist Name Role Phone Unavailable Primary Care Provider Unavailabl e Encounter Details Date Type Department Care Team (Late st Contact Info) Description 09/06/2019 Transcribed Document [facility] Family Medicine [facility] [place] [address] ProviderLayton MD [facility] [place] [address] Social History Tobacco Use Types Packs/Day Years Used Date Smoking Tobacco: Never Assessed Sex and Gender Information Value Date Recorded Sex Assigned at Not on file Legal Sex Male 6:48 PM CDT Gender Identity Not on file Sexual Orientation Not on file documented as of this encounter Miscellaneous Notes * [employer]ner Conversion Note - Layton Singh MD - 09/06/2019 10:39 AM SHANK MAKER Discharge Follow Up Phone Call Entered On: 09/06/2019 10:41 EST Performed On: 09/06/2019 10:39 EST by Lorenza León RN Discharge Follow Up Phone Call STEMI/NSTEMI Discharge Follow Up : Open Discharge Disposition : No Documentation Available Post Visit Phone Call History : Other: CV 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 No recent chest pain. Voiced he will stop by Dr Hutchison's office today for results of 08/16/2019 stress test. Lorenza León RN - 09/06/2019 10:39 EST STEMI/NSTEMI Discharge Follow up Phone Call Chest Pain Or Shortness Of Breath Since Discharge? : None Currently Taking Aspirin? : Yes Currently Taking An Antiplatelet? : Yes Currently Taking A Beta Celeste? : Yes Currently Taking A Statin? : Yes Currently Taking An Bairon Or Arb : No Not Taking Bairon Or Arb Reason : not ordered Follow Up Scheduled With Rubber Belt Splicer? : Yes Patient Has Rubber Belt Splicer Contact Info? : Yes Cardiac Rehab Appointment Scheduled? : Yes Cardiac Rehab Name/Information : [facility] Healthy Lifestyle Lorenza León RN - 09/06/2019 10:39 EST Electronically signed by Madina [facility] Conversion Talent Agent Cerner at 11/09/2022 12:49 PM CDT documented in this encounter Plan of Treatment Not on file documented as of this encounter Visit Diagnoses Not on filedocumented in this encounter
--- OUTSIDE RECORDS SUMMARY | 2025-07-08 15:55 | XMS_ITS | Encounter Summary ---
Author Organization [employer] ([place], [place], [place], [place], [place]) Address [address] [place] [address] Care Team Providers Care Technical Support Technician Name Role Phone Unavailable Primary Care Provider Unavailabl e Encounter Details Date Type Department Care Team (Late st Contact Info) Description 06/17/2019 Transcribed Document [facility] [place] [address] [place] [address] ProviderLayton MD [facility] [address] [place], [place] [id number] Social History Tobacco Use Types Packs/Day Years Used Date Smoking Tobacco: Never Assessed Sex and Gender Information Value Date Recorded Sex Assigned at Not on file Legal Sex Male 6:48 PM CDT Gender Identity Not on file Sexual Orientation Not on file documented as of this encounter Miscellaneous Notes * Cerner Conversion Note - Layton ProviderMD - 06/17/2019 2:50 PM HOLTER TECHNICIAN UM Authorization Entered On: 06/17/2019 14:50 EST Performed On: 06/17/2019 14:50 EST by ANNALISA CORTEZ RN Primary Insurance Authorization Authorization and Policy Numbers : Insurance 1 Health Plan: AN[employer]M [employer] Policy Number: [id number] Authorization Number: Insurance Primary Name : [employer] Policy Number: [id number] Reference Number-Primary : [id number] Authorization Comments-Primary : Clinicals submitted via availity for Ip approval, em to [place] and [place] to change the status to IP Historical Authorization Comments-Primary : No Authorization Comments Found ANNALISA CORTEZ RN - 06/17/2019 14:50 EST Electronically signed by Madina [facility] Conversion Automatic Tire Tester Cerner at 11/09/2022 12:50 PM CDT documented in this encounter Plan of Treatment Not on file documented as of this encounter Visit Diagnoses Not on filedocumented in this encounter
--- OUTSIDE RECORDS SUMMARY | 2025-07-08 15:55 | XMS_ITS | Encounter Summary ---
Author Organization [employer] ([place], [place], [place], [place], [place]) Address [address] [place] [address] Care Team Providers Care Technical Sourcing Recruiter Name Role Phone Unavailable Primary Care Provider Unavailabl e Encounter Details Date Type Department Care Team (Late st Contact Info) Description 06/17/2019 Transcribed Document [facility] [place] [address] [place] [address] ProviderLayton MD [address], [place] [id number] Social History Tobacco Use Types Packs/Day Years Used Date Smoking Tobacco: Never Assessed Sex and Gender Information Value Date Recorded Sex Assigned at Not on file Legal Sex Male 6:48 PM CDT Gender Identity Not on file Sexual Orientation Not on file documented as of this encounter Miscellaneous Notes * Cerner Conversion Note - Historical ProviderMD - 06/17/2019 2:00 AM DIRECTOR OF DIGITAL MARKETING Plisse Machine Operator Details Entered On: 06/17/2019 1:01 EST Performed On: 06/17/2019 2:00 EST by CHASIDY ALBARRAN RN Order Details Order Detail : N/A IV Order Detail : 1 Oxygen Order Detail : 0 Nurse Collect Order Detail : 0 Central Line Order Detail : No Arterial Line : No CHASIDY ALBARRAN RN - 06/17/2019 1:01 EST documented in this encounter Plan of Treatment Not on file documented as of this encounter Visit Diagnoses Not on filedocumented in this encounter
--- OUTSIDE RECORDS SUMMARY | 2025-07-08 15:55 | XMS_ITS | Encounter Summary ---
Author Organization [employer] ([place], [place], [place], [place], [place]) Address [address] [place] [address] Care Team Providers Care Core Inserter Name Role Phone Unavailable Primary Care Provider Unavailabl e Encounter Details Date Type Department Care Team (Late st Contact Info) Description 06/17/2019 Transcribed Document [facility] [place] [address] [place] [address] ProviderLayton MD [address] [place], [place] [id number] Social History Tobacco Use Types Packs/Day Years Used Date Smoking Tobacco: Never Assessed Sex and Gender Information Value Date Recorded Sex Assigned at Not on file Legal Sex Male 6:48 PM CDT Gender Identity Not on file Sexual Orientation Not on file documented as of this encounter Miscellaneous Notes * Cerner Conversion Note - Historical ProviderMD - 06/17/2019 4:00 AM SERVICE ASSOCIATE Height and Weight, Routine Entered On: 06/17/2019 4:36 EST Performed On: 06/17/2019 4:00 EST by Genoveva Cueva [facility] Unit Coord Height and Weight, Routine Routine Weight Source : Bed scale Routine Weight Entry Format : [place] Routine Weight, Pounds : 266 lb Routine Weight, Ounces : 9 oz Routine Weight Calculation : 121.16 kg Height Source : Stated Height Entry Format : [place] Height, Feet : 5 ft Height, Inches : 11 Inch Clinical Height : 180.34 cm Body Surface Area (BSA), Routine : 2.38 m2 Body Mass Index (BMI), Routine : 37.25 kg/m2 [facility] - 06/17/2019 4:36 EST Electronically signed by Madina [facility] Conversion Talent Acquisition Assistant Cerner at 11/09/2022 12:56 PM CDT documented in this encounter Plan of Treatment Not on file documented as of this encounter Visit Diagnoses Not on filedocumented in this encounter
--- OUTSIDE RECORDS SUMMARY | 2025-07-08 15:55 | XMS_ITS | Encounter Summary ---
Author Organization [employer] ([place], [place], [place], [place], [place]) Address [address] [place] [address] Care Team Providers Care Company Miner Blasting Name Role Phone Unavailable Primary Care Provider Unavailabl e Encounter Details Date Type Department Care Team (Late st Contact Info) Description 06/16/2019 Transcribed Document [facility] [place] [address] [place] [address] ProviderLayton MD [facility] [place], [place] [address] Social History Tobacco Use Types Packs/Day Years Used Date Smoking Tobacco: Never Assessed Sex and Gender Information Value Date Recorded Sex Assigned at Not on file Legal Sex Male 6:48 PM CDT Gender Identity Not on file Sexual Orientation Not on file documented as of this encounter Miscellaneous Notes * Cerner Conversion Note - Historical ProviderMD - 06/16/2019 11:08 AM SPRING MANUFACTURING SET UP TECHNICIAN Pre Procedure Adult Entered On: 06/16/2019 11:15 EST Performed On: 06/16/2019 11:08 EST by CELESTINO RASMUSSEN RN Height and Weight, Clinical Dosing Height Source : Stated Height Entry Format : [place] Height, Feet : 5 ft(Converted to: 152 cm, 60 Inch) Height, Inches : 11 Inch(Converted to: 0 ft 11 Inch, 27.94 cm) Clinical Height : 180.34 cm Weight Source : Standing scale Weight Entry Format : [place] Clinical Dosing Weight : 122.73 kg Weight, Pounds : 270 lb Body Surface Area (BSA) : 2.4 m2 Body Mass Index : 37.7 kg/m2 (HI) [place] Body Weight : 74 kg CELESTINO RASMUSSEN RN - 06/16/2019 11:08 EST Health Histories Smoking Status : Never (less than 100 in lifetime; none in last 30 days) Smokeless Tobacco Status : Never CELESTINO RASMUSSEN RN - 06/16/2019 11:08 EST Social History (As Of: 06/16/2019 11:15:45 EST) Tobacco: Never (less than 100 in lifetime) Smoking Status. (Last Updated: 06/16/2019 11:08:40 EST by CELESTINO RASMUSSEN RN) Alcohol: Alcohol Use History No. (Last Updated: 06/16/2019 11:08:43 EST by CELESTINO RASMUSSEN RN) Substance Abuse: Drug Use Hx: No. (Last Updated: 06/16/2019 11:08:47 EST by CELESTINO RASMUSSEN RN) Infectious Disease History Infectious Disease History : Chicken pox/Shingles, MRSA Fever/Chills Last 48 Hours : No Travel To Regions with Travel Advisories : No Travel Outside [place] Within Last 30 Days : No Contact With Traveler to Advisory Region : No Tuberculosis Symptoms : None CELESTINO RASMUSSEN RN - 06/16/2019 11:08 EST Anesthesia/Transfusion History Family History of Anesthesia Reaction : No prior transfusion(s) Blood Transfusion Acceptable to Patient : Yes Transfusion History : Prior anesthesia reaction Type of Anesthesia Reaction : Excessive somnolence Family History of Anesthesia Reaction : None CELESTINO RASMUSSEN RN - 06/16/2019 11:08 EST Functional Assessment Living Situation : Home Patient Lives With : Spouse Persons Assisting Patient at Home : Spouse Current Daily Living Assistance : None Mobility Assistance Prior to Admission : Independent Current Home Treatments : Blood glucose monitoring CELESTINO RASMUSSEN RN - 06/16/2019 11:08 EST [place] Suicide Severity Rating Scale (C-SSRS) CSSRS Past Month Wish to be : No CSSRS Past Month Suicidal Thoughts : No CSSRS Lifetime Suicide Behavior : No Suicide Severity Rating Score : 0 Suicide Severity Rating : No Additional Care Required at this time CELESTINO RASMUSSEN RN - 06/16/2019 11:08 EST Psychosocial History Does Someone Depend on You for Care? : Yes Have Arrangements been Made? : Yes Do You Have a History of the Following? : Patient denies history Currently in Unsafe Situation : No Restraining Order Against Another Person : No CELESTINO RASMUSSEN RN - 06/16/2019 11:08 EST Advance Directive Patient has Advance Directive *Q : No, patient refuses Advance Directive information CELESTINO RASMUSSEN RN - 06/16/2019 11:08 EST Spiritual/Cultural Needs Significant Loss/Crisis in Past 3 Years : No Any Spiritual/Cultural Needs or Requests : Yes CELESTINO RASMUSSEN RN - 06/16/2019 11:08 EST Teaching/Learning Assessment Barriers To Learning : None evident Individuals Taught : Patient Readiness to Learn : Cooperative Learning Style Preferences Patient : Verbal explanation CELESTINO RASMUSSEN RN - 06/16/2019 11:08 EST Education Topics, Periop Preadmission Perioperative Education Grid IV's : Verbalizes understanding Responsible Adult : Verbalizes understanding CELESTINO RASMUSSEN RN - 06/16/2019 11:08 EST General Info Arrived From : Other: [facility] Mode of Arrival on Unit : Stretcher Legal Guardian : Sibling, Spouse Want Family/Rep/Phys Notified of Admit : No Emergency Contact #1 : Ileana Emergency Contact #1 Emergency Contact #1 Relationship : spouse Emergency Contact #2 : Aaliyah Hudson Emergency Contact #2 Emergency Contact #2 Relationship : mother Chief Complaint : Here for cardiac cath Information Obtained From : Patient Primary Language : Vietnamese Preferred Communication Mode : Verbal Communication Barrier : None CELESTINO RASMUSSEN RN - 06/16/2019 11:08 EST Vital Measurements Temperature Source : Temporal artery scanning Temperature Mode : Fahrenheit Temperature, Fahrenheit : 96.8 Deg F Clinical Temperature, C : 36 Deg C Pulse Method : Non-Invasive BP Device Peripheral Pulse Rate : 83 bpm Respiratory Rate : 16 Breaths/Min Blood Pressure Location : Arm, right upper Blood Pressure Source : Non-Invasive BP Device Systolic Blood Pressure : 128 mmHg Diastolic Blood Pressure : 76 mmHg Oxygen Saturation : 98 % CELESTINO RASMUSSEN RN - 06/16/2019 11:08 EST Sleep Apnea Risk Assmt Hx of Obstructive Sleep Apnea Diagnosis : No Snore Loudly : Yes Tired, Fatigued, or Sleepy During Day : No Observed Stopping Breathing During Sleep : No Have/Are Being Treated for Hypertension : No BMI Greater Than 35 kg/m2 : Yes Age over 50 Years Old : No Neck Circumference Greater Than 40 cm : Yes Gender Male : Yes STOP-BANG Sleep Apnea Risk Level Score : 4 DIERUF, CELESTINO L, RN - 06/16/2019 11:08 EST Miguel A Scale Miguel A Sensory Perception : No impairment Miguel A Moisture : Rarely moist Miguel A Activity : Walks frequently Miguel A Mobility : No limitation Miguel A Nutrition : Adequate Miguel A Friction and Shear : No apparent problem Miguel A Score : 22 CELESTINO RASMUSSEN RN - 06/16/2019 11:08 EST Oxygen Therapy Oxygen Therapy Mode : Room air CELESTINO RASMUSSEN RN - 06/16/2019 11:08 EST Pain Assessment Pain Assessment : Initial assessment Pain Scale Used : 0-10 Scale CELESTINO RASMUSSEN RN - 06/16/2019 11:08 EST Fall Risk Scales ABCs Fall Injury Risk Identification : Bones, Coagulation ABC Fall Injury Risk : Moderate to high injury risk [place] Hx Falls Immediate/Within 3 Months : No [place] Secondary Diagnosis : No [place] Use of Ambulatory Aid : None [place] IV Therapy or IV Access : Yes [place] Gait/Transferring : Normal, bedrest, immobile [place] Mental Status : Oriented to own ability [place] Fall Risk Score : 20 [place] Fall Scale Risk Level : 0-24 Low Risk [place] Fall Interventions : Adequate lighting, Bed in low position, Hourly comfort/safety rounds, Personal items within reach, Room free of clutter/spills, Upper side-rails up, Wheels locked, Wires/Cords secured CELESTINO RASMUSSEN RN - 06/16/2019 11:08 EST Valuables and Belongings Valuables and Belongings : Clothing, Personal devices, Personal items, No comfort items, No jewelry, No assistive devices, No respiratory devices, No medications Clothing : Common streetwear Clothing Disposition : Bedside Personal Device Disposition : With patient Personal Devices : Glasses Personal Items : Cell phone Personal Items Disposition : With family CELESTINO RASMUSSEN RN - 06/16/2019 11:08 EST Pain Scale Intensity : 0 CELESTINO RASMUSSEN RN - 06/16/2019 11:08 EST Image 4 - Images currently included in the form version of this document have not been included in the text rendition version of the form. Leiter Coma Annmarie Best Motor Response : Obey commands Leiter Best Verbal Response : Oriented Leiter Eye Opening Response : Spontaneous Annmarie Coma Score : 15 CELESTINO RASMUSSEN RN - 06/16/2019 11:08 EST Electronically signed by Madina, [facility] Conversion Emergency Generator Mechanic Cerner at 11/09/2022 12:56 PM CDT documented in this encounter Plan of Treatment Not on file documented as of this encounter Visit Diagnoses Not on filedocumented in this encounter
--- OUTSIDE RECORDS SUMMARY | 2025-07-08 15:55 | XMS_ITS | Referral Summary ---
Author Organization [employer] ([place], [place], [place], [place], [place]) Address [address] [place] [address] Care Team Providers Care Squad Sergeant Name Role Phone Unavailable Primary Care Provider Unavailabl e Social History Tobacco Use Types Packs/Day Years Used Date Smoking Tobacco: Never Assessed Sex and Gender Information Value Date Recorded Sex Assigned at Not on file Legal Sex Male 6:48 PM CDT Gender Identity Not on file Sexual Orientation Not on file Plan of Treatment Not on file
--- OUTSIDE RECORDS SUMMARY | 2025-07-08 15:55 | XMS_ITS | Encounter Summary ---
Author Organization [employer] ([place], [place], [place], [place], [place]) Address [address] [place] [address] Care Team Providers Care Floor Finisher Name Role Phone Unavailable Primary Care Provider Unavailabl e Encounter Details Date Type Department Care Team (Late st Contact Info) Description 06/17/2019 Transcribed Document [facility] [place] [facility] [place] [address] ProviderLayton MD [address] [place] [id number] Social History Tobacco Use Types Packs/Day Years Used Date Smoking Tobacco: Never Assessed Sex and Gender Information Value Date Recorded Sex Assigned at Not on file Legal Sex Male 6:48 PM CDT Gender Identity Not on file Sexual Orientation Not on file documented as of this encounter Miscellaneous Notes * Cerner Conversion Note - Layton Singh MD - 06/17/2019 1:55 PM 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 [place] [address] ERICH CHAO :1980 Visit Time:06/16/2019 Your Visit Summary Your Care Team Admitting Physician - RUTH MI MD-INT Attending Physician - RUTH MI MD-DIANA Referring Physician - TRACE VIVEROS DO-CAR Your Diagnosis NSTEMI (non-ST elevated myocardial infarction) S/P drug eluting coronary stent placement CAD (coronary artery disease) DM2 (diabetes mellitus, type 2) Dyslipidemia (high LDL; low HDL) Severe obesity (BMI 35.0-35.9 with comorbidity) At risk for sleep apnea Allergic rhinitis Discharge Vitals Temperature 36.2 ??C Heart Rate (Monitored) 104 Blood Pressure 131/82 What to do next Instructions From Your Care Team Discharge Activity: Discharge Activity: Activity as tolerated Diet: Discharge Diet: Diabetic diet (carb controlled) Wound/Incision Care Instructions: Keep operative site/wound clean and dry Showering/Bathing Instructions: May shower Driving Restriction: No driving until 24 hours after taking pain medication Return to Work or School: May return to work or school Follow-Up Appointments Follow Up with RENETTA GILLIS When Within 1 month Comments Call for follow up appointment Where: [address] [place] [address] [address] [facility] [address] [place] [address]- [facility] (1) Follow Up with Follow up with primary care provider When Within 1 week Medications What How Much When Instructions Next Dose aspirin (aspirin 81 mg oral delayed release tablet) 1 Tablet(s) Oral Every Day Printed Prescription atorvastatin (atorvastatin 40 mg oral tablet) 2 Tablet(s) Oral At Bedtime Printed Prescription famotidine (Pepcid 20 mg oral tablet) 1 Tablet(s) Oral Two Times A Day Printed Prescription ticagrelor (ticagrelor 90 mg oral tablet) 1 Tablet(s) Oral Two Times A Day Printed Prescription cyanocobalamin (Vitamin B-12) 1 Tablet(s) Oral Every Day metFORMIN (metFORMIN 1000 mg oral tablet) 1 Tablet(s) Oral Two Times A Day multivitamin 1 Tablet(s) Oral Every Day Take your medications faithfully. Do NOT skip [...] Please dispose of unused and medications per your retail pharmacy guidance. Allergies No Known Allergies Immunizations This Visit No Immunizations Found Education Materials Coronary Angiogram With Stent, Care After This sheet gives you information about how to care for yourself after your procedure. Your health care provider may also give you more specific instructions. If you have problems or questions, contact your health care provider. What can I expect after the procedure? After your procedure, it is common to have: ??? Bruising in the area where a small, thin tube (catheter) was inserted. This usually fades within 1???2 weeks. ??? Blood collecting in the tissue (hematoma) that may be painful to the touch. It should usually decrease in size and tenderness within 1???2 weeks. Follow these instructions at home: Insertion area care ??? Do not take baths, swim, or use a hot tub until your health care provider approves. ??? You may shower 24???48 hours after the procedure or as directed by your health care provider. ??? Follow instructions from your health care provider about how to take care of your incision. Make sure you: ? Wash your hands with soap and water before you change your bandage (dressing). If soap and water are not available, use hand morphology teacher. ? Change your dressing as told by your health care provider. ? Leave stitches (sutures), skin glue, or adhesive strips in place. These skin closures may need to stay in place for 2 weeks or longer. If adhesive strip edges start to loosen and curl up, you may trim the loose edges. Do not remove adhesive strips completely unless your health care provider tells you to do that. ??? Remove the bandage (dressing) and gently wash the catheter insertion site with plain soap and water. ??? Pat the area dry with a clean towel. Do not rub the area, because that may cause bleeding. ??? Do not apply powder or lotion to the incision area. ??? Check your incision area every day for signs of infection. Check for: ? More redness, swelling, or pain. ? More fluid or blood. ? Warmth. ? Pus or a bad smell. Activity ??? Do not drive for 24 hours if you were given a medicine to help you relax (sedative). ??? Do not lift anything that is heavier than 10 lb (4.5 kg) for 5 days after your procedure or as directed by your health care provider. ??? Ask your health care provider when it is okay for you: ? To return to work or school. ? To resume usual physical activities or sports. ? To resume sexual activity. Eating and drinking ??? Eat a heart-healthy diet. This should include plenty of fresh fruits and vegetables. ??? Avoid the following types of food: ? Food that is high in salt. ? Canned or highly processed food. ? Food that is high in saturated fat or sugar. ? Fried food. ??? Limit alcohol intake to no more than 1 drink a day for non- women and 2 drinks a day for men. One drink equals 12 oz of beer, 5 oz of wine, or 1?? oz of hard liquor. Lifestyle ??? Do not use any products that contain nicotine or tobacco, such as cigarettes and e-cigarettes. If you need help quitting, ask your health care provider. ??? Take steps to manage and control your weight. ??? Get regular exercise. ??? Manage your blood pressure. ??? Manage other health problems, such as diabetes. General instructions ??? Take pvpo-[id number] and prescription medicines only as told by your health care provider. Blood thinners may be prescribed after your procedure to improve blood flow through the stent. ??? If you need an MRI after your heart stent has been placed, be sure to tell the health care provider who orders the MRI that you have a heart stent. ??? Keep all follow-up visits as directed by your health care provider. This is important. Contact a health care provider if: ??? You have a fever. ??? You have chills. ??? You have increased bleeding from the catheter insertion area. Hold pressure on the area. Get help right away if: ??? You develop chest pain or shortness of breath. ??? You feel faint or you pass out. ??? You have unusual pain at the catheter insertion area. ??? You have redness, warmth, or swelling at the catheter insertion area. ??? You have drainage (other than a small amount of blood on the dressing) from the catheter insertion area. ??? The catheter insertion area is bleeding, and the bleeding does not stop after 30 minutes of holding steady pressure on the area. ??? You develop bleeding from any other place, such as from your rectum. There may be bright red blood in your urine or stool, or it may appear as black, tarry stool. This information is not intended to replace advice given to you by your health care provider. Make sure you discuss any questions you have with your health care provider. Document Released: 01/29/2006 Document Revised: 04/08/2017 Document Reviewed: 04/08/2017 [employer] Interactive Patient Education ?? 2019 [employer]. Radial Site Care Refer to this sheet in the next few weeks. These instructions provide you with information about caring for yourself after your procedure. Your health care provider may also give you more specific instructions. Your treatment has been planned according to current medical practices, but problems sometimes occur. Call your health care provider if you have any problems or questions after your procedure. What can I expect after the procedure? After your procedure, it is typical to have the following: ??? Bruising at the radial site that usually fades within 1???2 weeks. ??? Blood collecting in the tissue (hematoma) that may be painful to the touch. It should usually decrease in size and tenderness within 1???2 weeks. Follow these instructions at home: ??? Take medicines only as directed by your health care provider. ??? You may shower 24???48 hours after the procedure or as directed by your health care provider. Remove the bandage (dressing) and gently wash the site with plain soap and water. Pat the area dry with a clean towel. Do not rub the site, because this may cause bleeding. ??? Do not take baths, swim, or use a hot tub until your health care provider approves. ??? Check your insertion site every day for redness, swelling, or drainage. ??? Do not apply powder or lotion to the site. ??? Do not flex or bend the affected arm for 24 hours or as directed by your health care provider. ??? Do not push or pull heavy objects with the affected arm for 24 hours or as directed by your health care provider. ??? Do not lift over 10 lb (4.5 kg) for 5 days after your procedure or as directed by your health care provider. ??? Ask your health care provider when it is okay to: ? Return to work or school. ? Resume usual physical activities or sports. ? Resume sexual activity. ??? Do not drive home if you are discharged the same day as the procedure. Have someone else drive you. ??? You may drive 24 hours after the procedure unless otherwise instructed by your health care provider. ??? Do not operate machinery or power tools for 24 hours after the procedure. ??? If your procedure was done as an outpatient procedure, which means that you went home the same day as your procedure, a responsible adult should be with you for the first 24 hours after you arrive home. ??? Keep all follow-up visits as directed by your health care provider. This is important. Contact a health care provider if: ??? You have a fever. ??? You have chills. ??? You have increased bleeding from the radial site. Hold pressure on the site. Get help right away if: ??? You have unusual pain at the radial site. ??? You have redness, warmth, or swelling at the radial site. ??? You have drainage (other than a small amount of blood on the dressing) from the radial site. ??? The radial site is bleeding, and the bleeding does not stop after 30 minutes of holding steady pressure on the site. ??? Your arm or hand becomes pale, cool, tingly, or numb. This information is not intended to replace advice given to you by your health care provider. Make sure you discuss any questions you have with your health care provider. Document Released: 08/14/2011 Document Revised: 12/17/2016 Document Reviewed: 01/28/2015 Elsevier Interactive Patient Education ?? 2019 [employer] Emergency Awareness and Preventative Care STROKE [...] Assistance with quitting is available by contacting 5-670-KWGRNOW. This is a free resource providing counseling, [...] and how to prevent infections, visit www.cdc.gov/sepsis. Test Results Laboratory or Other Results This Visit (last charted value for your 06/16/2019 visit) Hematology 06/17/2019 5:02 AM WBC: 10.0 K/uL -- Normal range between ( 3.6 and 9.5 ) RBC: 4.82 Million/uL -- Normal range between ( 4.20 and 5.70 ) Hct: 46.0 % -- Normal range between ( 40.1 and 51.0 ) Hgb: 16.4 g/dL -- Normal range between ( 13.5 and 17.3 ) Platelet Count: 216 K/uL -- Normal range between ( 163 and 369 ) MCH: 34.0 pg -- Normal range between ( 25.6 and 32.2 ) MCHC: 35.7 Gram/dL -- Normal range between ( 32.2 and 36.5 ) MCV: 95.4 fL -- Normal range between ( 79.0 and 94.8 ) Slide Review: No Eos %: 1.4 % -- Normal range between ( 0.0 and 7.0 ) [place] #: 0.89 K/uL -- Normal range between ( 0.16 and 1.00 ) Eos #: 0.14 x10(3)/uL -- Normal range between ( 0.00 and 0.80 ) [place] %: 8.9 % -- Normal range between ( 3.0 and 9.0 ) Baso %: 0.3 % -- Normal range between ( 0.0 and 1.5 ) Baso #: 0.03 x10(3)/uL -- Normal range between ( 0.00 and 0.20 ) RDW: 12.1 % -- Normal range between ( 11.7 and 14.9 ) Neut %: 67.3 % -- Normal range between ( 34.0 and 71.0 ) Neut #: 6.77 K/uL -- Normal range between ( 1.56 and 6.13 ) Lymph %: 21.7 % -- Normal range between ( 19.3 and 53.1 ) Lymph #: 2.18 x10(3)/uL -- Normal range between ( 1.00 and 3.90 ) MPV: 10.0 fL -- Normal range between ( 9.4 and 12.4 ) IG#: 0.04 x10(3)/uL -- Normal range between ( 0.00 and 0.05 ) IG%: 0.40 % -- Normal range between ( 0.00 and 0.60 ) General Chemistry 06/17/2019 11:32 AM Glucose POC2: 116 mg/dL -- Normal range between ( 70 and 110 ) Device Comment 1: Device Comment 1 06/17/2019 5:02 AM Creatinine Level: 0.90 mg/dL -- Normal range between ( 0.70 and 1.30 ) Sodium Level: 137 mmol/L -- Normal range between ( 136 and 146 ) Potassium Level: 3.7 mmol/L -- Normal range between ( 3.5 and 5.1 ) Chloride Level: 104 mmol/L -- Normal range between ( 102 and 112 ) Carbon Dioxide Level: 28 mmol/L -- Normal range between ( 21 and 32 ) Anion Gap: 9 -- Normal range between ( 9 and 20 ) Bilirubin Total: 0.8 mg/dL -- Normal range between ( 0.2 and 1.2 ) Hgb A1C: 6.0 % A/G Ratio: 1.0 -- Normal range between ( 1.1 and 2.5 ) ALT: 47 Units/Liter -- Normal range between ( 16 and 61 ) AST: 51 Units/Liter -- Normal range between ( 5 and 37 ) Globulin: 3.6 Gram/dL -- Normal range between ( 1.5 and 4.5 ) Alk Phos: 66 Units/Liter -- Normal range between ( 27 and 136 ) eAVG Glucose: 126 mg/dL Bun/Creatinine: 14.4 -- Normal range between ( 8.0 and 20.0 ) Calcium Level: 9.1 mg/dL -- Normal range between ( 8.4 and 10.1 ) eGFR : >60 mL/min/1.73m2 eGFR NonAfrican: >60 mL/min/1.73m2 Glucose Level: 121 mg/dL -- Normal range between ( 74 and 106 ) Magnesium Level: 1.8 mg/dL -- Normal range between ( 1.5 and 2.4 ) Blood Urea Nitrogen: 13 mg/dL -- Normal range between ( 7 and 22 ) Protein Total: 7.2 Gram/dL -- Normal range between ( 6.4 and 8.2 ) Albumin Level: 3.6 Gram/dL -- Normal range between ( 3.4 and 5.0 ) Coagulation 06/16/2019 5:03 PM ACT POC: 268 Second(s) -- Normal range between ( 74 and 137 ) Lipid Studies 06/17/2019 5:02 AM Cholesterol Tot: 169 mg/dL -- Normal range between ( 0 and 199 ) Cholesterol HDL: 26.0 mg/dL Cholesterol LDL Calculation: 98.8 mg/dL -- Normal range between ( 0.0 and 99.0 ) Cholesterol VLDL Calculation: 44.2 mg/dL -- Normal range between ( 5.0 and 40.0 ) Cholesterol/HDL Ratio: 6.5 -- Normal range between ( 0.0 and 3.2 ) Triglyceride: 221 mg/dL -- Normal range between ( 0 and 249 ) LDL/HDL Ratio: 3.8 -- Normal range between ( 0.0 and 3.6 ) Echo 06/16/2019 6:35 PM [facility] / Follow Up: [facility] / Follow Up Patient Name:ERICH CHAO I have received and understand this information and was given the opportunity to ask questions. 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
--- OUTSIDE RECORDS SUMMARY | 2025-07-08 15:55 | XMS_ITS | Encounter Summary ---
Author Organization [employer] ([place], [place], [place], [place], [place]) Address [address] [place] [address] Care Team Providers Care Dehydrator Name Role Phone Unavailable Primary Care Provider Unavailabl e Encounter Details Date Type Department Care Team (Late st Contact Info) Description 11/06/2020 Transcribed Document [facility] [place] [facility] [place] [address] ProviderLayton MD [address] [place] [id number] Social History Tobacco Use Types Packs/Day Years Used Date Smoking Tobacco: Never Assessed Sex and Gender Information Value Date Recorded Sex Assigned at Not on file Legal Sex Male 6:48 PM CDT Gender Identity Not on file Sexual Orientation Not on file documented as of this encounter Miscellaneous Notes * Cerner Conversion Note - Layton Singh MD - 11/06/2020 9:08 AM CDT Patient: ERICH CHAO Age: 40 years Sex: Male : 1980 Associated Diagnoses: Chest pain Author: LUIS ANGEL VALDES MD Basic Information Additional information: Chief Complaint from Nursing Triage Note : Chief Complaint 11/06/2020 8:52 EDT Chief Complaint pt c/o chest pain since last night, hx heart attack 2 years ago, some pain in mid-back and left arm, 81mg aspirin this a.m. . History of Present Illness The patient presents with chest pain. The onset was 1 days ago. The course/duration of symptoms is fluctuating in intensity. Location: substernal. Radiating pain: none. The character of symptoms is dull. The degree at onset was minimal. The degree at maximum was moderate. The degree at present is minimal. The exacerbating factor is none. The relieving factor is none. Risk factors consist of coronary artery disease, hypertension, diabetes mellitus, obesity, not pulmonary embolism and not deep vein thrombosis. Therapy today Aspirin. Associated symptoms: denies shortness of breath, denies nausea, denies vomiting, denies diaphoresis, denies anxiety and denies palpitations. Review of Systems Constitutional symptoms: No fever, [...] Flush: 10 mL, IV Push, See Comment Prescriptions Prescribed Pepcid 20 mg oral tablet: [...] history: Cardiac Stent performed by RENETTA GILLIS MD-CAR on 06/16/2019 at 39 Years. Comments: 06/27/2019 10:03 ELOINA VILA RN RESULTS OF INTERVENTION: At angiography, the middle circumflex contained critical stenosis of greater than 90%. Following PTCA and drug-eluting stent placement, this is reduced to 0% with BLANCA-3 flow and no residual dissection. CONCLUSION: [id number] myocardial infarction due to the combination of [...] documented in chart. Problem list: Active Problems (10) Allergic rhinitis At risk for sleep apnea CAD (coronary artery disease) CAD - Coronary artery disease DM2 (diabetes mellitus, type 2) Dyslipidemia (high LDL; low HDL) HLD - Hyperlipidemia HTN - Hypertension Severe obesity (BMI 35.0-35.9 with comorbidity) Type 2 diabetes mellitus , per nurse's notes. Physical Examination Vital Signs Vital Signs/Vital Measures 11/06/2020 8:52 EDT Systolic Blood Pressure 145 mmHg HI Diastolic Blood Pressure 74 mmHg Temperature Source Oral Temperature Mode Fahrenheit Temperature, Fahrenheit 98.6 Deg F Clinical Temperature, C 37 Deg C Peripheral Pulse Rate 95 bpm Respiratory Rate 21 Breaths/Min HI Oxygen Saturation 96 % Oxygen Therapy Mode Room air . Measurements 11/06/2020 8:52 EDT Height Source Stated Height Entry Format [place] Height/Length, URDU (ft) 5 ft Height/Length URDU 11 Inch CLINICALHEIGHT 180.34 cm [employer] Body Weight 74.31 kg Weight Source, ED Critical estimated dosing weight Weight Entry Format [place] Weight Beninese lb 270 lb CLINICALWEIGHT 122.73 kg Body Surface Area (BSA) 2.4 m2 Body Mass Index 37.7 kg/m2 HI . Oxygen Saturation 11/06/2020 8:52 EDT Oxygen Saturation 96 % . General: Alert, no acute distress. [...] reviewed: Emergency department nurses' notes. Electrocardiogram: Time 11/06/2020 08:54:00, rate 83, normal sinus rhythm, No ST changes, no ectopy, normal UT & QRS intervals, EP Interp. Electrocardiogram: Time 11/06/2020 12:34:00, rate 73, normal sinus rhythm, No ST changes, no ectopy, normal UT & QRS intervals, EP Interp. Results review: Lab results : Lab Results 11/06/2020 12:00 EDT Troponin I Ultra <0.015 ng/mL 11/06/2020 9:10 EDT Sodium Level 135 mmol/L LOW Potassium Level 4.0 mmol/L Chloride Level 103 mmol/L Carbon Dioxide Level 28 mmol/L Anion Gap 8 LOW Glucose Level 321 mg/dL HI Blood Urea Nitrogen 17 mg/dL Creatinine Level 0.90 mg/dL eGFR >60 mL/min/1.73m2 eGFR NonAfrican >60 mL/min/1.73m2 Bun/Creatinine 18.9 Calcium Level 9.5 mg/dL Protein Total 7.4 Gram/dL Albumin Level 3.6 Gram/dL Globulin 3.8 Gram/dL A/G Ratio 0.9 LOW Bilirubin Total 0.5 mg/dL Alk Phos 82 Units/Liter AST 40 Units/Liter HI ALT 65 Units/Liter HI Lipase Level 134 Units/Liter Troponin I Ultra <0.015 ng/mL Troponin I Ultra <0.015 ng/mL ProBNP 15 pg/mL WBC 7.4 K/uL RBC 5.17 Million/uL Hgb 16.6 g/dL Hct 47.7 % MCV 92.3 fL MCH 32.1 pg MCHC 34.8 Gram/dL Platelet Count 203 K/uL MPV 10.2 fL RDW 11.5 % LOW Neut % 58.9 % Neut # 4.34 K/uL Lymph % 30.9 % Lymph # 2.28 x10(3)/uL [place] % 7.6 % [place] # 0.56 K/uL Eos % 1.9 % Eos # 0.14 x10(3)/uL Baso % 0.4 % Baso # 0.03 x10(3)/uL Slide Review No IG# 0.02 x10(3)/uL IG% 0.30 % D Dimer Quant 0.20 mg/L FEU . Radiology results: Radiology Results (Last 48 hours) [id number] -- 11/06/2020 08:48 CR Chest 1 Vw Portable (11/06/2020 09:11) Result: PORTABLE CHEST 11/06/2020 9:01 AM HISTORY: Precordial chest pain .COMPARISON: July 2019.FINDINGS: The heart is proper size. The mediastinum is unremarkable. Thelungs are clear. There is no pneumothorax. The osseous structures areunremarkable. IMPRESSION: No acute cardiopulmonary process.Images reviewed, interpreted, and dictated by Dr. Valentín Garcia.Transcribed by Stacey Riggs(R).I have personally viewed, interpreted and dictated the examination. Ihave read and agree with the above final transcribed report. . Impression and Plan Diagnosis Chest pain - Discharge, Medical Plan Condition: Improved, Stable. Disposition: Discharged Admit/Transfer/Discharge: Discharge (Order): Start: 11/06/2020 13:49 EDT, Discharge to: Home. Patient was given the following educational materials: Nonspecific Chest Pain, Adult, Nonspecific Chest Pain, Adult. Follow up with: ; RENETTA GILLIS Within 2 to 3 days. Counseled: Patient, Regarding diagnosis, Regarding diagnostic results, Regarding treatment plan, Patient indicated understanding of instructions. Notes: Patient presented with chest pain currently resolved. EKG troponin negative x2. Otherwise well-appearing. Wells low risk for PE, D-dimer negative. Discharged home with close cardiology follow-up and given clear return instructions.. documented in this encounter Plan of Treatment Not on file documented as of this encounter Visit Diagnoses Not on filedocumented in this encounter
--- OUTSIDE RECORDS SUMMARY | 2025-07-08 15:55 | XMS_ITS | Encounter Summary ---
Author Organization [employer] ([place], [place], [place], [place], [place]) Address [address] [place] [address] Care Team Providers Care Behavior Management Specialist Name Role Phone Unavailable Primary Care Provider Unavailabl e Encounter Details Date Type Department Care Team (Late st Contact Info) Description 06/16/2019 Transcribed Document [facility] Cardiology [address] [phone] [place] [address] [place] [address] [address] [place] [address] Social History Tobacco Use Types Packs/Day Years Used Date Smoking Tobacco: Never Assessed Sex and Gender Information Value Date Recorded Sex Assigned at Not on file Legal Sex Male 6:48 PM CDT Gender Identity Not on file Sexual Orientation Not on file documented as of this encounter Miscellaneous Notes * Cerner Conversion Note - Jared Hutchison MD - 06/16/2019 12:37 PM EST Patient: ERICH HUDSON Age: 39 years Sex: Male : 1980 Associated Diagnoses: None Author: JARED HUTCHISON MD-CAR Basic Information PCP: None Steam Clean Machine Operator: None Chief Complaint chest pain History of Present Illness 39 year old male with a history of diabetes and obesity. He presented to [facility] ER yesterday with complaints of midsternal chest pain. The pain is described as pressure that radiates into his jaw. He denies an obvious trigger or relieving factors. He reports that he has been having this pain off and on for several days however, yesterday it intensified to 5/10. Initial troponin was normal and EKG showed nonspecific ST chagnes. l He was admitted overnight for observation. Serial troponin increased with peak this morning at 2.136. He has been transferred to [facility] for cardiac cath. He is currently chest pain free and in no acute distress. Family is at bedside. Review of Systems Constitutional: Negative except as documented in history of present illness. Eye: Negative except as documented in history of present illness. Ear/Nose/Mouth/Throat: Negative except as documented in history of present illness. Respiratory: Negative except as documented in history of present illness. Cardiovascular: Negative except as documented in history of present illness. Gastrointestinal: Negative except as documented in history of present illness. Genitourinary: Negative except as documented in history of present illness. Hematology/Lymphatics: Negative except as documented in history of present illness. Endocrine: Negative except as documented in history of present illness. Immunologic: Negative except as documented in history of present illness. Musculoskeletal: Negative except as documented in history of present illness. Integumentary: Negative except as documented in history of present illness. Neurologic: Negative except as documented in history of present illness. Psychiatric: Negative except as documented in history of present illness. Health Status Allergies (1) Active Reaction No Known Allergies None Documented Home Medications (4) Active metFORMIN 1000 mg oral tablet 1,000 mg = 1 Tab, Oral, BID multivitamin 1 Tab, Oral, Daily Non Formulary med Vitamin B-12 1 Tab, Oral, Daily Allergies: Allergic Reactions (Selected) No Known Allergies Current medications: (Selected) Inpatient Medications Ordered Normal Saline Flush: 10 mL, IV Push, Q12H Normal Saline Flush: 10 mL, IV Push, See Comment, PRN: IV Use Sodium Chloride 0.9% intravenous solution 500 mL: Titrate, IntraVENous atorvastatin: 80 mg, Oral, PREOP Documented Medications Documented Non Formulary med: Aneta root one tablet two to three times a day, voer the counter, 0 Refill(s) Vitamin B-12: 1 Tab, Oral, Daily, 0 Refill(s) metFORMIN 1000 mg oral tablet: 1 Tab, Oral, BID, 60 Tab, 0 Refill(s) multivitamin: 1 Tab, Oral, Daily, 0 Refill(s), Medications (4) Active Scheduled: (2) #NaCl 0.9% *FLUSH* inj 10 mL 10 mL, IV Push, Q12H atorvastatin 40 mg tab 80 mg 2 Tab, Oral, PREOP Continuous: (1) Sodium Chloride 0.9% intravenous solution 500 mL 500 mL, IntraVENous PRN: (1) #NaCl 0.9% *FLUSH* inj 10 mL 10 mL, IV Push, See Comment Problem list: All Problems Allergic rhinitis / SNOMED CT 984564868 / Confirmed Angina / SNOMED CT 447871558 / Confirmed Myocardial infarction / SNOMED CT 18223008 / Confirmed Gout / SNOMED CT 356301079 / Confirmed Back pain / SNOMED CT 652080697 / Confirmed Diabetes mellitus type II / SNOMED CT 15713823 / Confirmed At risk for sleep apnea / IMO 74416882 / Confirmed, Active Problems (7) Allergic rhinitis Angina At risk for sleep apnea Back pain Diabetes mellitus type II Gout Myocardial infarction Histories No education data available. Social & Psychosocial Habits Alcohol 06/16/2019 Alcohol Use History, Social Habits No Substance Abuse 06/16/2019 Recreational Drug Use History No Tobacco 06/16/2019 Smoking Status Never (less than 100 in l Past Medical History: Active Diabetes mellitus (703658223) Obesity (6472268425) Family History: Coronary heart disease Grandfather (M) Grandmother (M) Procedure history: Eye surgery. Right ankle surgery for fx, pinning removed. Tonsils. Social History Social & Psychosocial Habits Alcohol 06/16/2019 Alcohol Use History, Social Habits No Substance Abuse 06/16/2019 Recreational Drug Use History No Tobacco 06/16/2019 Smoking Status Never (less than 100 in l . Physical Examination VS/Measurements Vitals Signs (last 24 hrs) Last Charted Minimum Maximum Temp 96.8 (JUN 16:08) 96.8 (JUN 16:08) 96.8 (JUN 16:08) Periph HR 83 (JUN 16:08) 83 (JUN 16 11:08) 83 (JUN 16:08) Resp Rate 16 (JUN 16:08) 16 (JUN 16 11:08) 16 (JUN 16:08) SBP 128 (JUN 16:08) 128 (JUN 16:08) 128 (JUN 16:08) DBP 76 (JUN 16:08) 76 (JUN 16:) 76 (JUN 16:) SpO2 98 (JUN 16:) 98 (JUN 16:) 98 (JUN 16:) General: Alert and oriented. Eye: Pupils are equal, round and reactive to light. HENT: Normocephalic. Neck: Supple, No carotid bruit, No jugular venous distention. Respiratory: Lungs are clear to auscultation, Respirations are non-labored, Breath sounds are equal. Cardiovascular: Normal rate, Regular rhythm, No murmur, No gallop, Good pulses equal in all extremities. Gastrointestinal: Soft, Non-tender, Non-distended, Normal bowel sounds. Musculoskeletal: Normal range of motion, Normal strength. Integumentary: Warm, Dry, [place]. Neurologic: Alert, Oriented. Psychiatric: Cooperative. Review / Management No qualifying data available Cardiac Markers (Current Encounter/Past 24 Hours) No Cardiac Marker Results Found (Past 24 Hours) Blood Gases (Current Encounter/Past 24 Hours) No Blood Gas Results Found (Past 24 Hours) No Radiology Results Found Results review: No qualifying data available. Impression and Plan IMPRESSION: * NSTEMI * DM type 2 Controlled on Metformin HgbA1C 6.4% * Morbid obesity Pt should follow a low calorie, low saturated fat diet and increase physical activity. PLAN; Cardiac catheterization with possible catheter based intervention. Risks, benefits, and alternative therapy discussed in detail. He has given verbal and written consent. Radial artery access. DAPT and high-intensity statin started. documented in this encounter Plan of Treatment Not on file documented as of this encounter Visit Diagnoses Not on filedocumented in this encounter
--- OUTSIDE RECORDS SUMMARY | 2025-07-08 15:55 | XMS_ITS | Encounter Summary ---
Author Organization [employer] ([place], [place], [place], [place], [place]) Address [address] [place] [address] Care Team Providers Care Novelty Twister Operator Name Role Phone Unavailable Primary Care Provider Unavailabl e Encounter Details Date Type Department Care Team (Late st Contact Info) Description 09/18/2019 Transcribed Document [facility] [place] [facility] [address] ProviderLayton MD [facility] [place], [place] [address] Social History Tobacco Use Types Packs/Day Years Used Date Smoking Tobacco: Never Assessed Sex and Gender Information Value Date Recorded Sex Assigned at Not on file Legal Sex Male 6:48 PM CDT Gender Identity Not on file Sexual Orientation Not on file documented as of this encounter Miscellaneous Notes * Cerner Conversion Note - Layton Singh MD - 09/18/2019 1:10 PM FIRE EXTINGUISHER REPAIRER INSPECTOR Discharge Follow Up Phone Call Entered On: 09/18/2019 13:15 EST Performed On: 09/18/2019 13:10 EST by JOHN MARAVILLA RN Discharge Follow Up Phone Call STEMI/NSTEMI Discharge Follow Up : Open Discharge Disposition : No Documentation Available Post Visit Phone Call History : Other: DAY 90 FOLLOW UP / ALISHA RENTERIA Contact Name : ERICH De León Relationship to Patient : Self Provider Follow-Up Post Discharge : Discharge Follow Up No Follow Up Appointments on Record Previously Documented Care Home Patient Stated Goal : No Patient Stated Goal Additional Questions/Concerns Comments : PT. STATES HE IS FEELING GOOD AND RETURNED TO NORMAL ACTIVITY JONH MARAVILLA RN - 09/18/2019 13:10 EST STEMI/NSTEMI Discharge Follow up Phone Call Chest Pain Or Shortness Of Breath Since Discharge? : None Currently Taking Aspirin? : Yes Currently Taking An Antiplatelet? : Yes Currently Taking A Beta Celeste? : Yes Currently Taking A Statin? : Yes Currently Taking An Bairon Or Arb : No Cardiac Rehab Appointment Scheduled? : Yes JOHN MARAVILLA RN - 09/18/2019 13:10 EST Electronically signed by [facility] Conversion Mortgage Accounting Clerk Cerner at 11/09/2022 12:55 PM CDT documented in this encounter Plan of Treatment Not on file documented as of this encounter Visit Diagnoses Not on filedocumented in this encounter
--- OUTSIDE RECORDS SUMMARY | 2025-07-08 15:55 | XMS_ITS | Encounter Summary ---
Author Organization [employer] ([place], [place], [place], [place], [place]) Address [address] [place] [address] Care Team Providers Care Director Retirement Name Role Phone Unavailable Primary Care Provider Unavailabl e Encounter Details Date Type Department Care Team (Late st Contact Info) Description 08/17/2019 Transcribed Document [facility] [place] [facility] [place] [address] ProviderLayton MD [facility] [place] [address] Social History Tobacco Use Types Packs/Day Years Used Date Smoking Tobacco: Never Assessed Sex and Gender Information Value Date Recorded Sex Assigned at Not on file Legal Sex Male 6:48 PM CDT Gender Identity Not on file Sexual Orientation Not on file documented as of this encounter Miscellaneous Notes * Cerner Conversion Note - Layton ProviderMD - 08/17/2019 12:17 PM MERCHANDISING ASSISTANT Discharge Follow Up Phone Call Entered On: 08/17/2019 12:21 EST Performed On: 08/17/2019 12:17 EST by Lorenza León RN Discharge Follow Up Phone Call STEMI/NSTEMI Discharge Follow Up : Open Discharge Disposition : No Documentation Available Post Visit Phone Call History : Other: CV AMI director of research and development 60 day call Contact Name : Erich Contact Relationship to Patient : Self Provider Follow-Up Post Discharge : Discharge Follow Up Follow up with primary care provider - Within 1 week RENETTA GILLIS - Within 1 month Previously Documented [facility] Patient Stated Goal : No Patient Stated Goal Additional Questions/Concerns Comments : Pt voiced ER visit on 08/15/2019 for chest pain- voiced everything turned out ok. He did outpt stress 08/16/2019 and has follow up with Dr Alexis. Lorenza León, RN - 08/17/2019 12:17 EST STEMI/NSTEMI Discharge Follow up Phone Call Chest Pain Or Shortness Of Breath Since Discharge? : None Currently Taking Aspirin? : Yes Currently Taking An Antiplatelet? : Yes Currently Taking A Beta Celeste? : Yes Currently Taking A Statin? : Yes Currently Taking An Bairon Or Arb : No Not Taking Bairon Or Arb Reason : not ordered Follow Up Scheduled With [employer] Salvage Processor? : Yes Patient Has [employer] T[employer] Salvage Processor Contact Info? : Yes Home Health Care Set Up After Discharge : N/A-No home care orders SNF After Discharge? : N/A Cardiac Rehab Appointment Scheduled? : Yes Cardiac Rehab Name/Information : [facility] Healthy Lifestyle Lorenza León RN - 08/17/2019 12:17 EST documented in this encounter Plan of Treatment Not on file documented as of this encounter Visit Diagnoses Not on filedocumented in this encounter
--- OUTSIDE RECORDS SUMMARY | 2025-07-08 15:55 | XMS_ITS | Encounter Summary ---
[facility] Organization [facility] Address [address] [place] [address] Care Team Providers Care Strap Making Machine Operator Name Role Phone Maria Teresa Frey EQUIPMENT ENGINEERING TECHNICIAN Primary Care Provider [phone] Reason for Visit * Reason Comments Med Refill Encounter Details Date Type Department Care Team (Late st Contact Info) Description 06/06/2025 Refill [facility] [address] [place] [phone] Maria Teresa Frey, EQUIPMENT ENGINEERING TECHNICIAN [address] [place], [place] [id number] Social History Tobacco Use Types Packs/Day Years [...] as of this encounter Miscellaneous Notes * Telephone Encounter - Sepideh Israel MA - 06/06/2025 7:33 AM EST Rx sent documented in this encounter Plan of Treatment Not on file documented as of this encounter Visit Diagnoses Not on filedocumented in this encounter Care Teams Strap Making Machine Operator Relationship Specialty Start Date End Date Maria Teresa Frey APRN [address] [place] [address] PCP - General Family Medicine 12/08/24 documented as of this encounter
--- OUTSIDE RECORDS SUMMARY | 2025-07-08 15:55 | XMS_ITS | Encounter Summary ---
Author Organization [employer] ([place], [place], [place], [place], [place]) Address [address] [place] [address] Care Team Providers Care Medical Care Evaluation Specialist Name Role Phone Unavailable Primary Care Provider Unavailabl e Encounter Details Date Type Department Care Team (Late st Contact Info) Description 06/17/2019 Transcribed Document [facility] [place] [facility] [place] [address] Layton Singh MD [address] [place] [id number] Social History Tobacco Use Types Packs/Day Years Used Date Smoking Tobacco: Never Assessed Sex and Gender Information Value Date Recorded Sex Assigned at Not on file Legal Sex Male 6:48 PM CDT Gender Identity Not on file Sexual Orientation Not on file documented as of this encounter Miscellaneous Notes * Cerner Conversion Note - Layton Singh MD - 06/17/2019 7:52 AM TRICHOLOGIST Patient Education Materials Follows: Coronary Angiogram With Stent, Care After This [...] (catheter) was inserted. This usually fades within 1?2 weeks. ??? Blood collecting in the tissue (hematoma) that may be painful to the touch. It should usually decrease in size and tenderness within 1?2 weeks. Follow these instructions at home: Insertion area care ??? Do not take baths, swim, or use a hot tub until your health care provider approves. ??? You may shower 24?48 hours after the procedure or as directed by your health care provider. ??? Follow instructions from your health care provider about how to take care of your incision. Make sure you: ? Wash your hands with soap and water before you change your bandage (dressing). If soap and water are not available, use hand occupational rehabilitation aide. ? Change your dressing as told by [...] of beer, 5 oz of wine, or 1? oz of hard liquor. Lifestyle ??? Do not use any products that contain nicotine or tobacco, such as cigarettes and e-cigarettes. If you need help quitting, ask your health care provider. ??? Take steps to manage and control your weight. ??? Get regular exercise. ??? Manage your blood pressure. ??? Manage other health problems, such as diabetes. General instructions ??? Take [id number]-hyaqpzy and prescription medicines only as told by [...] 01/29/2006 Document Revised: 04/08/2017 Document Reviewed: 04/08/2017 [employer] Interactive Patient Education ? 2019 [employer] Radial Site Care Refer to this sheet [...] the radial site that usually fades within 1?2 weeks. ??? Blood collecting in the tissue (hematoma) that may be painful to the touch. It should usually decrease in size and tenderness within 1?2 weeks. Follow these instructions at home: ??? Take medicines only as directed by your health care provider. ??? You may shower 24?48 hours after the procedure or as directed [...] 08/14/2011 Document Revised: 12/17/2016 Document Reviewed: 01/28/2015 [employer] Interactive Patient Education ? 2019 [employer] documented in this encounter Plan of Treatment Not on file documented as of this encounter Visit Diagnoses Not on filedocumented in this encounter
--- OUTSIDE RECORDS SUMMARY | 2025-07-08 15:55 | XMS_ITS | Encounter Summary ---
Author Organization [employer] ([place], [place], [place], [place], [place]) Address [address] [place] [address] Care Team Providers Care Charge Master Specialist Name Role Phone Unavailable Primary Care Provider Unavailabl e Encounter Details Date Type Department Care Team (Late st Contact Info) Description 06/17/2019 Transcribed Document [facility] Cardiology [address] [id number] [place] [address] [place] [address] [address] [place] [address] Social History Tobacco Use Types Packs/Day Years Used Date Smoking Tobacco: Never Assessed Sex and Gender Information Value Date Recorded Sex Assigned at Not on file Legal Sex Male 6:48 PM CDT Gender Identity Not on file Sexual Orientation Not on file documented as of this encounter Miscellaneous Notes * Cerner Conversion Note - Wilfredo [place] MD - 06/17/2019 1:14 AM EST Patient: ERICH CHAO Age: 39 years Sex: Male : 1980 Associated Diagnoses: None Author: WILFREDO D[place]TON MD-CAR Subjective NAD Health Status Allergies: Allergic Reactions (Selected) No Known Allergies, Allergies (1) Active Reaction No Known Allergies None Documented Current medications: (Selected) Inpatient Medications Ordered Brilinta: 90 mg, Oral, BID Dulcolax Laxative: 5 mg, Oral, Daily, PRN: Constipation DuoNeb 0.5 mg-2.5 mg/3 mL inhalation solution: 3 mL, Nebulized Inhalation, Q6H, PRN: Shortness of Breath Normal Saline Flush: 10 mL, IV Push, Q12H Normal Saline Flush: 10 mL, IV Push, Q12H Normal Saline Flush: 10 mL, IV Push, See Comment, PRN: IV Use Normal Saline Flush: 10 mL, IV Push, See Comment, PRN: IV Use Pepcid: 20 mg, Oral, BID Sodium Chloride 0.9% intravenous solution 500 mL: Titrate, IntraVENous Tylenol: 650 mg, Oral, Q4H, PRN: Other (See Comment) Zofran: 4 mg, IV Push, Q4H, PRN: Nausea aspirin: 81 mg, Oral, Daily atorvastatin: 80 mg, Oral, At Bedtime hydrALAZINE: 10 mg, IV Push, Q6H, PRN: Hypertension insulin lispro sliding scale: Scale D:, SubCutaneous, AC and at Bedtime melatonin: 3 mg, Oral, At Bedtime, PRN: Insomnia morphine: 2 mg, IV Push, Q2H, PRN: Chest Pain Documented Medications Documented Non Formulary med: Aneta [...] B-12 1 Tab, Oral, Daily , Medications (17) Active Scheduled: (7) #NaCl 0.9% *FLUSH* inj 10 mL 10 mL, IV Push, Q12H #NaCl 0.9% *FLUSH* inj 10 mL 10 mL, IV Push, Q12H aspirin EC 81 mg tab 81 mg 1 Tab, Oral, Daily atorvastatin 40 mg tab 80 mg 2 Tab, Oral, At Bedtime famotidine 20 mg tab 20 mg 1 Tab, Oral, BID insulin lispro 1 unit/0.01 mL inj Scale D:, SubCutaneous, AC and at Bedtime ticagrelor 90 mg tab 90 mg 1 Tab, Oral, BID Continuous: (1) NaCl 0.9% TITRATE 500 mL 500 mL, IntraVENous PRN: (9) #NaCl 0.9% *FLUSH* inj 10 mL 10 mL, IV Push, See Comment #NaCl 0.9% *FLUSH* inj 10 mL 10 mL, IV Push, See Comment acetaminophen 325 mg tab 650 mg 2 Tab, Oral, Q4H albuterol-ipratropium inh 3 mL 3 mL, Nebulized Inhalation, Q6H bisacodyl EC 5 mg tab 5 mg 1 Tab, Oral, Daily hydrALAZINE 20 mg/1 mL inj 10 mg 0.5 mL, IV Push, Q6H melatonin 3 mg tab 3 mg 1 Tab, Oral, At Bedtime morphine 2 mg/1 ml inj 2 mg 1 mL, IV Push, Q2H ondansetron 4 mg/2 mL inj 4 mg 2 mL, IV Push, Q4H Problem list: Active Problems (9) Allergic rhinitis Angina At risk for sleep apnea Back pain Diabetes mellitus Diabetes mellitus type II Gout Myocardial infarction Obesity Objective Intake and Output 24 hour intake: Total 100 ml 24 hour output: Total 250 ml VS/Measurements Vitals Signs (last 24 hrs) Last Charted Minimum Maximum Temp 96.8 (JUN 16:) 96.8 (JUN 16:) 96.8 (JUN 16) Mon HR 74 (JUN 16:) 74 (JUN 16:) 92 (JUN 16 12:45) Periph HR 83 (JUN 16:) 83 (JUN 16:) 83 (JUN 16:) Resp Rate L 13 (JUN 16:) L 12 (JUN 16 13:30) H 25 (JUN 16:30) SBP 119 (JUN 16:) 109 (JUN 16:00) 128 (JUN 16:08) DBP 66 (JUN 16:) 64 (JUN 16:30) 76 (JUN 16:08) MAP 86 (JUN 16 15:00) 79 (JUN 16 12:00) 93 (JUN 16 13:30) SpO2 95 (JUN 16:) 95 (JUN 16:30) 98 (JUN 16:08) General: Alert and oriented, No acute distress. Eye: Pupils are equal, round and reactive to light. HENT: Normocephalic. Neck: Supple, Non-tender. Respiratory: Respirations are non-labored, Breath sounds are equal, Symmetrical chest wall expansion. Cardiovascular: Normal rate, Regular rhythm, No edema. Gastrointestinal: Soft, Non-tender, Non-distended, Normal bowel sounds. Genitourinary: No costovertebral angle tenderness. Musculoskeletal: Normal range of motion. Integumentary: Warm, Dry, Intact. Neurologic: Alert, Oriented, No focal deficits. Psychiatric: Cooperative, Appropriate mood & affect. Results Review Telemetry sr No qualifying data available Cardiac Markers (Current Encounter/Past 24 Hours) No Cardiac Marker Results Found (Past 24 Hours) No Radiology Results Found Cardiac Cath DATE OF SERVICE: 06/16/2019 INDICATION: 39-year-old male with diabetes, but no previous cardiac history, presented to [facility] with chest pressure and had serial elevation in troponin consistent with a [id number] myocardial infarction. At that hospital, he received [...] artery selective angiography. PROCEDURAL DETAILS: 1. A 6-Ukrainian sheath was inserted in the right radial artery after access of the micropuncture needle. Coronary angiography was performed using a 5-Ukrainian Mariusz and a 5-Ukrainian Inverness diagnostic catheters. Between exchanging the catheters from the Mariusz to the Inverness, there was difficulty re-advancing the J-tipped guidewire through the middle arm segment. The Inverness catheter was positioned in the area of the distal arm, and selective angiography of the radial artery and brachial artery was performed. 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 Nitroglycerin was given. I was able to use a Glidewire to advance the Inverness catheter and finish the angiographic study. However, when the decision was made to proceed with intervention, it was clear shoveling and manipulating guides through this anomalous small spasmed radial artery would not be the best approach, so we switched to femoral artery access. A 6-Ukrainian sheath was inserted in the right femoral artery. Heparin was administered to achieve a therapeutic ACT. 2. Intervention of circumflex. A 6-Ukrainian CLS 3.5 guide catheter and a short [employer] coronary guidewire were used to cross the [...] removed. 5. Attempted wire crossing of RCA JUNIOR ART DIRECTOR. A JR4 guide catheter was used to engage the RCA. Initially, a PT2 wire was advanced through the predominance of the subtotally occluded segment to the occluded segment, where the wire traveled subintimal and could not be redirected. This wire was removed, and a Crm Architect 200 wire was used, which selected a different tract, but again ended up subintimal. It was apparent at this point that this was indeed a JUNIOR ART DIRECTOR and that future intervention should be considered [...] BLANCA-3 flow and no residual dissection. CONCLUSION: [id number] myocardial infarction due to the combination of severe circumflex stenosis and chronic total occlusion of the right coronary artery, which is dominant. Impression and Plan IMPRESSION: * NSTEMI --SP ROYA---> Cx a. JUNIOR ART DIRECTOR---> RCA b. Mod LAD dx * DM type 2 Controlled on Metformin HgbA1C 6.4% * Morbid obesity Pt should follow a low calorie, low saturated fat diet and increase physical activity. PLAN; 06/17/2019 NSTEMI s/p successful PCI with ROYA to LCx. Continue on optimal medical therapy with continuing of dual antiplatelet therapy. Will schedule myocardial perfusion stress test for evaluation of chronic total occlusion of the right coronary artery. Follow-up with Dr. Starr in approximately 4 weeks with instructions to call if any problems need to be addressed sooner. 06/16/2019 Cardiac catheterization with possible catheter based intervention. Risks, benefits, and alternative therapy discussed in detail. He has given verbal and written consent. Radial artery access. DAPT and high-intensity statin started. documented in this encounter Plan of Treatment Not on file documented as of this encounter Visit Diagnoses Not on filedocumented in this encounter
--- OUTSIDE RECORDS SUMMARY | 2025-07-08 15:55 | XMS_ITS | Clinical Summary ---
Author Organization [employer] ([place], [place], [place], [place], [place]) Address [address] [place] [address] Care Team Providers Care Client Resource Specialist Name Role Phone Unavailable Primary Care [...]
--- OUTSIDE RECORDS SUMMARY | 2025-07-08 15:55 | XMS_ITS | Encounter Summary ---
Author Organization [employer] ([place], [place], [place], [place], [place]) [facility] [address] [facility] [place] [address] Care Team Providers Care Cnc Mill And Lathe Operator Name Role Phone Unavailable Primary Care Provider Unavailabl e Encounter Details Date Type Department Care Team (Late st Contact Info) Description 06/17/2019 Transcribed Document [facility] [place] [address] [place] [address] ProviderLayton MD [address] [place] [address] Social History Tobacco Use Types Packs/Day Years Used Date Smoking Tobacco: Never Assessed Sex and Gender Information Value Date Recorded Sex Assigned at Not on file Legal Sex Male 6:48 PM CDT Gender Identity Not on file Sexual Orientation Not on file documented as of this encounter Miscellaneous Notes * Cerner Conversion Note - Layton ProviderMD - 06/17/2019 7:51 AM POSTMASTER Stroke/Warfarin Instructions Entered On: 06/17/2019 7:51 EST Performed On: 06/17/2019 7:51 EST by Reynaldo Saleh RN Stroke/Warfarin Instructions Stroke/TIA Discharge Ins : N/A Warfarin Discharge Ins : N/A Reynaldo Saleh RN - 06/17/2019 7:51 EST Electronically signed by Madina [facility] Conversion Automobile Mechanic Supervisor Christopherner at 11/09/2022 12:48 PM CDT documented in this encounter Plan of Treatment Not on file documented as of this encounter Visit Diagnoses Not on filedocumented in this encounter
--- OUTSIDE RECORDS SUMMARY | 2025-07-08 15:55 | XMS_ITS | Encounter Summary ---
Author Organization [employer] ([place], [place], [place], [place], [place]) Address [address] [place] [address] Care Team Providers Care Unload Associate Name Role Phone Unavailable Primary Care Provider Unavailabl e Encounter Details Date Type Department Care Team (Late st Contact Info) Description 11/06/2020 Transcribed Document [facility] [place] [address] [place] [address] ProviderLayton MD [facility] [place], [place] [id number] Social History Tobacco Use Types Packs/Day Years Used Date Smoking Tobacco: Never Assessed Sex and Gender Information Value Date Recorded Sex Assigned at Not on file Legal Sex Male 6:48 PM CDT Gender Identity Not on file Sexual Orientation Not on file documented as of this encounter Miscellaneous Notes * Cerner Conversion Note - Historical ProviderMD - 11/06/2020 5:14 PM CDT CR Chest 1 Vw Portable Ordered: 11/06/2020 Modified Reason for Exam: Chest Pain 11/06/2020 10:41 11/06/2020 17:14 (MARIA DE JESUS HERNANDEZ) No further action required documented in this encounter Plan of Treatment Not on file documented as of this encounter Visit Diagnoses Not on filedocumented in this encounter
--- OUTSIDE RECORDS SUMMARY | 2025-07-08 15:55 | XMS_ITS | Encounter Summary ---
Author Organization [employer] ([place], [place], [place], [place], [place]) Address [address] [place] [address] Care Team Providers Care Pay Agent Name Role Phone Unavailable Primary Care Provider Unavailabl e Encounter Details Date Type Department Care Team (Late st Contact Info) Description 06/17/2019 Transcribed Document [facility] [place] [address] [place] [address] ProviderLayton MD [address] [place] [id number] Social History Tobacco Use Types Packs/Day Years Used Date Smoking Tobacco: Never Assessed Sex and Gender Information Value Date Recorded Sex Assigned at Not on file Legal Sex Male 6:48 PM CDT Gender Identity Not on file Sexual Orientation Not on file documented as of this encounter Miscellaneous Notes * Cerner Conversion Note - Layton ProviderMD - 06/17/2019 2:22 PM FIRER BISQUE KILN Final Discharge Planning Entered On: 06/17/2019 14:22 EST Performed On: 06/17/2019 14:22 EST by TEOFILO CERON, Paper Handler-Emergency Medical Technician/Driver Final Discharge Planning Discharge Arrangements : Patient Post-Acute Information Patient Name: ERICH HUDSON Gender: Male : [birth year] Age: 39 Years No Post-Acute Placement(s) Listed No Post-Acute Service(s) Listed No [place] Referral(s) Listed TEOFILO CERON Paper Handler-Emergency Medical Technician/Driver - 06/17/2019 14:22 EST Final Narrative Note Final Narrative Note : Patient was discharged when CM went to see him. NO CM needs had been identified. TEOFILO CERON, Paper Handler-Emergency Medical Technician/Driver - 06/17/2019 14:22 EST Electronically signed by Madina, [facility] Conversion Dental Lab Technician Cerner at 11/09/2022 12:59 PM CDT documented in this encounter Plan of Treatment Not on file documented as of this encounter Visit Diagnoses Not on filedocumented in this encounter
--- OUTSIDE RECORDS SUMMARY | 2025-07-08 15:55 | XMS_ITS | Clinical Summary ---
Author Organization [facility] Address [address] [place] [address] Care Team Providers Care Stain Remover Name Role Phone Maria Teresa Frey Lisa RICKETTS Primary Care Provider [phone] Allergies Active Allergy Reactions Criticality Noted Date Comments Heparin Other (See Comments),Rash High 12/31/2022 12/29/2022: Patient had STRONG POSITIVE PF4 OD = 2.198 and high clinical suspicion of heparin induced thrombocytopenia (Hematology consult); reflex PEA also reported as POSITIVE. With HIT diagnosis, heparins (unfractionated heparin, LMWH) should be avoided unless approved by Hematology consult. Medications aspirin 81 MG tablet 1 tablet. 06/17/20 19 Active colchicine 0.6 MG tabletIndications: Gouty arthritis of right ankle Take 1 tablet by mouth Daily. 60 tablet 1 12/29/19 25 Active terbinafine (lamiSIL) 250 MG tabletIndications: Toenail fungus TAKE 1 TABLET BY MOUTH EVERY DAY 30 tablet 01/09/20 25 Active Diclofenac Sodium (Voltaren) 1 % gel gelIndications:Epi condylitis elbow, medial, right Apply 4 g topically to the appropriate area as directed 4 (Four) Times a Day. 100 g 03/16/20 25 Active Semaglutide, 1 MG/DOSE, (Ozempic, 1 MG/DOSE,) 4 MG/3ML solution pen-injectorIndica tions:Type 2 diabetes mellitus with hyperglycemia, without long-term current use of insulin INJECT 1 MG UNDER THE SKIN INTO THE APPROPRIATE AREA DIRECTED 1 (ONE) TIME PER WEEK. 3 mL 04/17/20 25 Active metoprolol succinate XL (TOPROL-XL) 50 MG 24 hr tablet TAKE 1 TABLET BY MOUTH EVERY DAY 90 tablet 1 06/06/20 25 Active methylPREDNISolone (MEDROL) 4 MG dose packIndications:In fluenza A Take as directed on package instructions. 21 tablet 06/29/20 25 Active promethazine-dextr omethorphan (PROMETHAZINE-DM) 6.25-15 MG/5ML syrupIndications:I nfluenza A Take 5 mL by mouth 4 (Four) Times a Day As Needed for Cough. 180 mL 06/29/20 25 Active atorvastatin (LIPITOR) 10 MG tabletIndications: Mixed hyperlipidemia Take 1 tablet by mouth Daily. 90 tablet 2 06/29/20 25 Active atorvastatin (LIPITOR) 10 MG tabletIndications: Mixed hyperlipidemia Take 1 tablet by mouth Daily. 90 tablet 2 03/16/20 25 025 Discontin ued(Reord er) Active Problems Problem Noted Date Diagnosed Date Influenza A 06/29/2025 Primary hypertension 03/16/2025 Assessment & Plan (03/23/2025 12:57 PM EDT): Blood pressure very well-controlled, 120/74 in office today. Utilizes metoprolol XL 50 mg daily Mixed hyperlipidemia 03/16/2025 Assessment & Plan (03/23/2025 12:58 PM EDT): Patient prescribed atorvastatin 10 mg daily, refill sent to pharmacy Epicondylitis elbow, medial, right 03/16/2025 Assessment & Plan (03/23/2025 1:00 PM EDT): Patient has plaints of right elbow pain, no decreased range of motion but he does note tenderness on palpation. He states as his workday progresses the pain intensifies. Exam findings consistent with epicondylitis of the right elbow. We discussed conservative management with 7-day course of prednisone, wearing of [id number] elbow brace while working as well as applying cold compress. -Patient declines orthopedic referral at this time, will proceed with course of prednisone. Hyperuricemia 12/28/2024 Overview (12/28/2024): Uric acid 7.6 in 11/2024 Assessment & Plan (12/28/2024 3:54 PM EDT): Most recent urine acid 7.6 in 11/2024, having acute right ankle gouty arthritis flare. Treating with prednisone, colchicine, followed by NSAID briefly, and can discuss with his PCP, Maria Teresa Frey APRN, consideration of initiation of allopurinol prophylaxis with either colchicine or NSAID concomitantly for several months, at his follow- up visit in 02/2025 Class 2 severe obesity due t o excess calories with serious comorbidity and body mass index (BMI) of 35.0 to 35.9 in adult 12/08/2024 Assessment & Plan (12/22/2024 1:46 PM EDT): Patient's (Body mass index is 35.15 kg/m .) indicates that they are obese (BMI >30) with health conditions that include diabetes mellitus and dyslipidemias . Weight is unchanged. BMI is above average; BMI management plan is completed. We discussed portion control and increasing exercise. Assessment & Plan (12/11/2024 5:41 PM EDT): Patient's (Body mass index is 35.15 kg/m .) indicates that they are obese (BMI >30) with health conditions that include hypertension, diabetes mellitus, and dyslipidemias . Weight is unchanged. BMI is above average; BMI management plan is completed. We discussed portion control and increasing exercise. Chronic fatigue 12/08/2024 Bilateral sciatica 12/08/2024 Assessment & Plan (12/11/2024 5:47 PM EDT): Patient endorses longstanding pattern of bilateral sciatica, generally during flares responding well to muscle relaxant and prednisone therapy. Toenail fungus 12/08/2024 Annual physical exam 12/08/2024 Heparin induced thrombocytopenia (HIT) 3 Overview (06/11/2023): Per [facility] hematology note 05/14/23: If future procedures and/or interventions are indicate for AC prophylaxis or therapeutic management recommend to AVOID ALL HEPARIN PRODUCTS for at least 2-3 years. After this time, the autoimmune response should resolve by this time. He should theoretically be able to resume AC options that include heparinized products in the future after this next 2-3 year non-exposure period. Until this time, Heparin is documented in Epic as NEW ALLERGY . - Discontinued Rivaroxaban 20mg/d today (05/14/23). Last dose Xarelto 20mg/d was reported on 05/07/23. He is encouraged to continue ASA therapy which he has lifelong cardiac ppx indication. - Mr Hudson currently has no indication to extend and/or continue lifelong therapeutic anticoagulation. Assessment & Plan (12/22/2024 1:47 PM EDT): Per [facility] hematology note 05/14/23: If future procedures and/or interventions are indicate for AC prophylaxis or therapeutic management recommend to AVOID ALL HEPARIN PRODUCTS for at least 2-3 years. After this time, the autoimmune response should resolve by this time. He should theoretically be able to resume AC options that include heparinized products in the future after this next 2-3 year non-exposure period. Until this time, Heparin is documented in Epic as NEW ALLERGY . - Discontinued Rivaroxaban 20mg/d today (05/14/23). Last dose Xarelto 20mg/d was reported on 05/07/23. He is encouraged to continue ASA therapy which he has lifelong cardiac ppx indication. - Mr Hudson currently has no indication to extend and/or continue lifelong therapeutic anticoagulation. Assessment & Plan (12/11/2024 5:45 PM EDT): Per [facility] note 05/14/23: If future procedures and/or interventions are indicate for AC prophylaxis or therapeutic management recommend to AVOID ALL HEPARIN PRODUCTS for at least 2-3 years. After this time, the autoimmune response should resolve by this time. He should theoretically be able to resume AC options that include heparinized products in the future after this next 2-3 year non-exposure period. Until this time, Heparin is documented in Epic as NEW ALLERGY . - Discontinued Rivaroxaban 20mg/d today (05/14/23). Last dose Xarelto 20mg/d was reported on 05/07/23. He is encouraged to continue ASA therapy which he has lifelong cardiac ppx indication. - Mr Hudson currently has no indication to extend and/or continue lifelong therapeutic anticoagulation. Gouty arthritis of right ankle 02/16/2020 Assessment & Plan (12/28/2024 3:55 PM EDT): Most recent uric acid 7.6 in 11/2024, clinical picture recurrent right ankle pain, clinical picture consistent with recurrent right ankle gouty arthritis, patient indicating this is the typical location for gouty arthritis flare. He does have some mild swelling slight warmth and tenderness, more noted medially than laterally. History of hyperuricemia and prior gouty episodes. Treat with prednisone noting he is a diabetic, colchicine, monitoring for GI side effects, and may supplement briefly with oral NSAIDs after off prednisone. Advise if symptoms not resolving with treatment. May discuss with his PCP at future appointment initiation of allopurinol prophylaxis with concomitant colchicine or NSAID for the first several months. Assessment & Plan (12/22/2024 1:47 PM EDT): Patient denies any recent gout flaring. When he has experienced pain it generally occurs in his left wrist. He is not on maintenance medication currently but has used allopurinol in the past as well as indomethacin when needed, however it does cause dizziness. Checking uric acid today Assessment & Plan (12/08/2024 1:07 PM EDT): Wrist is frequent location, rarely will get in ankle . Avoids beef, favors chicken. Occassionally will eat pork [place] worse on allpurinol Allergic rhinitis 12/08/2019 Coronary artery disease invo lving tribal coronary artery of tribal heart without angina pectoris 12/08/2019 Overview (04/03/2023): Heart attack May 2019 NSTEMI September 2022 12/18/2022 CABG x3 (HURST to LAD, rSVG to PDA, rSVG to OM) and RLE ESVH Assessment & Plan (03/23/2025 1:00 PM EDT): Premature coronary artery disease status post CABG x 3 vessel (HURST to LAD, rSVG to PDA, rSVG to OM, and RLE ESVH), status post subsequent xiphoidectomy, followed by [facility] surgery. Currently asymptomatic. Assessment & Plan (12/28/2024 3:50 PM EDT): Premature coronary artery disease status post CABG x 3 vessel (HURST to LAD, rSVG to PDA, rSVG to OM, and RLE ESVH), status post subsequent xiphoidectomy, followed by CT surgery. Currently asymptomatic. Continues on aspirin, Toprol XL 50 mg daily, and has not yet picked up prescription of atorvastatin. Assessment & Plan (12/22/2024 1:36 PM EDT): Patient suffered his first heart attack in 2018, initially followed by cardiology at [facility]. Patient had repeat non-STEMI in September 2022 with subsequent CABG x 3 (HURST to LAD, rSVG to PDA, rSVG to OM and RLE ESVH). Patient has had a complicated course since CABG requiring xiphoidectomy now with broken sternal wires, no plans for surgical intervention at this time. Now followed by CT surgery at . No recent cardiology follow-up Assessment & Plan (12/11/2024 5:47 PM EDT): Patient's heart attack in 2018, initially followed by cardiology at [facility]. Patient had repeat non-STEMI in September 2022, followed by CABG x 3 (HURST to LAD, rSVG to PDA, rSVG to OM and RLE ESVH). Patient has had a complicated course since CABG requiring xiphoidectomy now with broken sternal wires, no plans for surgical intervention at this time Type 2 diabetes mellitus wit h hyperglycemia, without long-term current use of insulin 10/15/2017 Overview (12/28/2024): Hemoglobin 1C 8.7% in 11/2024 Assessment & Plan (03/23/2025 12:57 PM EDT): Patient with longstanding pattern of type 2 diabetes. He was previously followed by endocrinology at the [facility], however was not followed up with them in over 1 year. He does check his glucose randomly, reports levels in the 180-kamran range on arrival to work. Patient has been off of any diabetic medications for one year. Patient reports use of both Ozempic and metformin in the past. A1c in office during last visit 3 months ago was 8.2%.. Subsequently we restarted his ozempic 0.25mg weekly. A1c improving with resuming of his medications, 7.5% in office today. - Increase semaglutide to 1 mg subcu weekly -Follow-up in 3 months Assessment & Plan (12/28/2024 3:52 PM EDT): Suboptimal diabetic control with hemoglobin A1c 8.2% in 11/2023, just reinitiated on Ozempic 0.25 mg subcu weekly, plan to increase after 4 weeks to 0.5 mg subcu weekly after which she will follow-up with his PCP, Maria Teresa Frey APRN. Anticipate acute increase in blood sugars with prednisone burst prescribed for his gouty arthritis, advised to monitor blood sugars closely Assessment & Plan (12/22/2024 1:49 PM EDT): Patient with longstanding pattern of type 2 diabetes. He was previously followed by endocrinology at the [facility], however was not followed up with them in over 1 year. He does check his glucose randomly, reports levels in the 180-kamran range on arrival to work. Patient has been off of any diabetic medications for one year. Patient reports use of both Ozempic and metformin in the past. A1c in office today last week was 8.2%.. Subsequently we restarted his ozempic 0.25mg weekly. Patient noted to have some toenail fungus on exam, given terbinafine 250mg daily last week. Otherwise satisfactory. Assessment & Plan (12/11/2024 5:44 PM EDT): Patient with longstanding pattern of type 2 diabetes. He was previously followed by endocrinology at the [facility], however was not followed up with them in over 1 year. He does check his glucose randomly, reports levels in the 180-kamran range on arrival to work. Patient has been off of any diabetic medications for one year. Patient reports use of both Ozempic and metformin in the past. A1c in office today is 8.2%. Will restart patient's semaglutide at 0.25 mg weekly dosing. Patient needs updated diabetic foot exam. He plans on returning for annual physical in the next couple of weeks. Resolved Problems Problem Noted Date Diagnosed Date Resolved Date Former smoker 12/08/2024 12/22/2024 Encounters Date Type Department Care Team Description 06/29/2025 10:45 AM EST Office Visit [facility] [address] [place] [address] DR ALEMAN, [place]AID[place] [phone] Maria Teresa Frey, LILIAM Sore throat (Primary Dx); Influenza A; Mixed hyperlipidemia; Primary hypertension; Type 2 diabetes mellitus with hyperglycemia, without long-term current use of insulin 06/29/2025 Travel 06/06/2025 Refill [facility] [address] [place] [phone] Maria Teresa Frey APRN 04/17/2025 Refill [facility] [address] [place] [phone] Maria Teresa Frey, RESERVATIONIST Type 2 diabetes mellitus with hyperglycemia, without long-term current use of insulin from Last 3 Months Immunizations Immunization Administration Dates Next Due Flu Vaccine Intradermal Quad 18-64YR 08/20/2017 Flu Vaccine Quad PF >36MO 06/16/2019,04/20/2018 Hepatitis A 10/30/2018,04/20/2018 Hepatitis B 01/20/2018 Hepatitis B Adult/Adolescent IM 08/19/2017,07/09 Influenza Injectable Mdck Pf Quad 04/22/2023 Pneumococcal Conjugate 20-Valent (PCV20) 025 Pneumococcal Polysaccharide (PPSV23) 04/19/2020 Td (TDVAX) 12/15/1995 Tdap 05/06/2024 Family History Medical History Relation Name Comments No Known Problems Father Cancer Maternal Grandfather lung Heart disease Maternal Grandfather Diabetes Mother Relation Name Status Comments Father Maternal Grandfather Mother Social History Tobacco Use Types Packs/Day Years Used Date Smoking Tobacco: Never Smokeless Tobacco: Never Tobacco Cessation:Counseling Given: Not Answered Alcohol Use Standard Drinks/Week Comments No 0 [...] Mass Index 34.59 06/29/2025 10:41 AM EST Plan of Treatment Health Maintenance Due Date Last Done Comments COLON CANCER SCREENING 5 YEA R SIGMOIDOSCOPY [address] COLONOGRAP[address] 2023 FECAL OCCULT BLOOD TEST 2023 FIT Testing (1 year) 2023 INFLUENZA VACCINE 02/23/2025 04/22/2023, , 04/20/2018, Additional history exists HEMOGLOBIN A1C 09/16/2025 03/16/2025, 11/23, 05/14/2023, Additional history exists DIABETIC EYE EXAM 11/08/2025 11/08/2024, (Patient-Reported (Performed Externally)) URINE MICROALBUMIN-CREATININ E RATIO (uACR) 12/08/2025 12/08/2024 ANNUAL PHYSICAL 12/15/2025 12/15/2024 DIABETIC FOOT EXAM 12/15/2025 12/15/2024, 0 12/15/2024, 04/19/2020 LIPID PANEL 12/15/2025 12/15/2024, 12/25, 12/28/2022, Additional history exists COLOGUARD 01/01/2028 12/31/2024 COLORECTAL CANCER SCREENING 01/01/2028 TDAP/TD VACCINES (3 - Td or Tdap) 05/06/2034 024, 12/15/1995 Hepatitis B Completed 01/20/2018, 07/27, 07/09/2017 HEPATITIS C SCREENING Completed 12/28/2022, 020 Pneumococcal Vaccine 0-49 Completed 12/08/2024, Procedures Procedure Name Priority Date/Time Associated Diagnosis Comments COVID-19 + FLU A&B AG, VERITOR Routine 06/29/2025 10:56 AM EST Sore throat POCT GLYCOSYLATED HEMOGLOBIN (HGB A1C) Routine 03/16/2025 1:05 PM EDT Type 2 diabetes mellitus with hyperglycemia, without long-term current use of insulin COLOGUARD Routine 12/31/2024 12:01 AM EDT Encounter for colorectal cancer screening using Cologuard test LIPID PANEL Routine 12/15/2024 8:22 AM EDT Hyperlipidemia, unspecified hyperlipidemia type POC ALBUMIN/CREATININE RATIO Routine 12/08/2024 4:33 PM EDT Type 2 diabetes mellitus with other circulatory complication, without long-term current use of insulin HEPATITIS C ANTIBODY Routine 12/08/2019 10:23 AM EDT Need for hepatitis C screening test from Last 3 Months or Most Recently Relevant to Health Maintenance Results * (ABNORMAL) Covid-19 + Flu A&B AG, Veritor (06/29/2025 10:56 AM EST) SARS Antigen Not Detected Not Detected, Presumptive Negative Influenza A Antigen CONCETTA Detected(A) Not Detected Influenza B Antigen CONCETTA Not Detected Not Detected Internal Control Passed Passed Lot Number [id number] Expiration Date Swab 06/29/2025 10:5 6 AM EST Maria Teresa Frey RESERVATIONIST POINT OF CARE TEST ORDERABL ES Final Result * (ABNORMAL) POC Glycosylated Hemoglobin (Hb A1C) (03/16/2025 1:05 PM EDT) Hemoglobin A1C 7.5(A) 4.5 - 5.7 % [facility] Lot Number [id number] [facility] Expiration Date [address] [facility] Blood 03/16/2025 1:05 PM EDT Maria Teresa Frey RESERVATIONIST POINT OF CARE TEST ORDERABL ES Final Result [facility]
[address] [place] [address], * Cologuard - Stool, Per Rectum (12/31/2024 12:01 AM EDT) Cologuard Negative Negative 01/05/2025 11:57 PM EDT [employer] (CLIA #:[id number]) Comment: The Cologuard (TM) test was performed on this specimen. NEGATIVE TEST RESULT. A negative Cologuard result indicates a low likelihood that a colorectal cancer (CRC) or advanced adenoma (adenomatous polyps with more advanced pre-malignant features) is present. The chance that a person with a negative Cologuard test has a colorectal cancer is less than 1 in 1500 (negative predictive value >99.9%) or has an advanced adenoma is less than 5.3% (negative predictive value 94.7%). These data are based on a prospective cross-sectional study of 10,000 individuals at average risk for colorectal cancer who were screened with both Cologuard and colonoscopy. (Anca Paredes et al, N Engl J Med 2014;370(14):1286- 1297) The normal value (reference range) for this assay is negative. COLOGUARD RE-SCREENING RECOMMENDATION: Periodic colorectal cancer screening is an important part of preventive healthcare for asymptomatic individuals at average risk for colorectal cancer. Following a negative Cologuard result, the [place] [employer] and U.S. Multi-Society Task Force screening guidelines recommend a Cologuard re-screening interval of 3 years. References: [place] [employer] Guideline for Colorectal Cancer Screening: https://www.cancer.org/cancer/ivvne-qyvmss-pqtrpn/btkuhagdr-vyjpjufeu-bkzrxgo/ac s-rec ommendations.html.; Bertram SIFUENTES, Sara MALONEY, Carl SmileyK, Colorectal Cancer Screening: Recommendations for Physicians and Patients from the U.S. Multi-Society Task Force on Colorectal Cancer Screening , Am J Gastroenterology 2017; 112:2987-4162. TEST DESCRIPTION: Composite algorithmic analysis of stool DNA-biomarkers with hemoglobin immunoassay. Quantitative values of individual biomarkers are not reportable and are not associated with individual biomarker result reference ranges. Cologuard is intended for colorectal cancer screening of adults of either sex, 45 years or older, who are at average-risk for colorectal cancer (CRC). Cologuard has been approved for use by the U.S. FDA. The performance of Cologuard was established in a cross sectional study of average-risk adults aged 50-84. Cologuard performance in patients ages 45 to 49 years was estimated by sub-group analysis of near-age groups. Colonoscopies performed for a positive result may find as the most clinically significant lesion: colorectal cancer [4.0%], advanced adenoma (including sessile serrated polyps greater than or equal to 1cm diameter) [20%] or non- advanced adenoma [31%]; or no colorectal neoplasia [45%]. These estimates are derived from a prospective cross-sectional screening study of 10,000 individuals at average risk for colorectal cancer who were screened with both Cologuard and colonoscopy. (Anca Paredes et al, N Engl J Med 2014;370(14):1452-7158.) Cologuard may produce a false negative or false positive result (no colorectal cancer or precancerous polyp present at colonoscopy follow up). A negative Cologuard test result does not guarantee the absence of CRC or advanced adenoma (pre-cancer). The current Cologuard screening interval is every 3 years. ([place] [employer] and U.S. Multi-Society Task Force). Cologuard performance data in a 10,000 patient pivotal study using colonoscopy as the reference method can be accessed at the following location: www.Sxbbm.Merku/results. Additional description of the Cologuard test process, warnings and precautions can be found at www.cologuard.Merku. Stool specimen (specimen) Specimen from rectum / Unknown 12/31/2024 12:01 AM EDT 01/02/2025 12:04 PM EDT Maria Teresa Frey APRN BODY FLUIDS AND STOOLS RACHEL SCHWARTZ Final Result [facility] (CLIA #:[id number]) [place] [address], * (ABNORMAL) Lipid Panel (12/15/2024 8:22 AM EDT) Total Cholesterol 214(H) 100 - 199 mg/dL [facility] Triglycerides 183(H) 0 - 149 mg/dL [facility] HDL Cholesterol 32(L) >39 mg/dL [facility] VLDL Cholesterol Noe 34 5 - 40 mg/dL [facility] LDL Chol Calc (NIH) 148(H) 0 - 99 mg/dL [facility] Blood Structure of left upper limb / Unknown 12/15/2024 8:22 AM EDT 12/15/2024 Comment:Blood Release to [facility] i Narrative [facility] ([facility]) - 12/16/2024 8:07 AM EDT Performed at: 01 - [facility] [id number] Joinery Patternmaker: Roberto Obrien PhD, Phone: [phone] Maria Teresa Frey APRN LAB BLOOD ORDERABLES Final Result [facility] ([facility]) [address] [place] [address], [place] [phone] [facility] [address] [place] [address], [place] [phone] * POC Albumin/Creatinine Ratio Urine (12/08/2024 4:33 PM EDT) POC ALBUMIN, URINE 30 mg/L POC CREATININE, URINE 100 mg/dL POC Urine Albumin Creatinine Ratio 30-300 <30 Lot Number [id number] Expiration Date Urine 12/08/2024 4:33 PM EDT Maria Teresa Gonzalez Tk RESERVATIONIST POINT OF CARE TEST ORDERABL ES Final Result * Hepatitis C Antibody (12/08/2019 10:23 AM EDT) Hep C Virus Ab 0.4 0.0 - 0.9 s/co ratio [facility] Comment: Negative: < 0.8 Indeterminate: 0.8 - 0.9 Positive: > 0.9 The CDC recommends that a positive HCV antibody result be followed up with a HCV Nucleic Acid Amplification test (557102). Blood 12/08/2019 10:2 3 AM EDT 12/08/2019 Narrative [facility] ([facility]ATORY) - 12/09/2019 7:07 AM EDT Performed at: - [address] [id number] Joinery Patternmaker: Roberto Obrien PhD, Phone: [phone] Patient Fasting: N Carlie Guerrero MD LAB BLOOD ORDERABLES Jada hidalgo Result [facility] [address] [place] [id number], [facility] [address] [place] [address], from Last 3 Months or Most Recently Relevant to Health Maintenance Additional Health Concerns Infection Onset Date Last Indicated Influenza 06/29/2025 06/29/2025 Insurance [facility] PPO Member Subscriber Plan / Payer (Ef fective 2024-Present) Name:Erich Hudson Member ID:[id number] Relation to Subscriber:Self Name:Erich Hudson Subscriber ID:[id number] Payer ID:[id number] (NAIC) Type:Not on file Address: [address] [place] [id number] Care Teams Stain Remover Relationship Specialty Start Date End Date Maria Teresa Frey APRN [address] [place] [address] PCP - General Family Medicine 12/08/24
--- OUTSIDE RECORDS SUMMARY | 2025-07-08 15:55 | XMS_ITS | Encounter Summary ---
Author Organization [employer] ([place], [place], [place], [place], [place]) Address [address] [place] [address] Care Team Providers Care Digital Sales Executive Name Role Phone Unavailable Primary Care Provider Unavailabl e Encounter Details Date Type Department Care Team (Late st Contact Info) Description 11/06/2020 Transcribed Document [facility] [place] [address] [place] [address] ProviderLayton MD [address], [place] [id number] Social History Tobacco Use Types Packs/Day Years Used Date Smoking Tobacco: Never Assessed Sex and Gender Information Value Date Recorded Sex Assigned at Not on file Legal Sex Male 6:48 PM CDT Gender Identity Not on file Sexual Orientation Not on file documented as of this encounter Miscellaneous Notes * Cerner Conversion Note - Historical ProviderMD - 11/06/2020 2:28 PM CDT ED Event Note Entered On: 11/06/2020 14:28 EDT Performed On: 11/06/2020 14:28 EDT by LEATHA CASAS RN ED Event Note ED Event Date/Time : 11/06/2020 14:28 EDT ED Event Location : Assigned room ED Description of Event : IV removed and gauze to site. Pt given instructions and verb understanding and left amb in satis cond. LEATHA CASAS RN - 11/06/2020 14:28 EDT Electronically signed by [facility] Conversion Airline Station Agent Cerner at 11/09/2022 12:55 PM CDT documented in this encounter Plan of Treatment Not on file documented as of this encounter Visit Diagnoses Not on filedocumented in this encounter
--- OUTSIDE RECORDS SUMMARY | 2025-07-08 15:55 | XMS_ITS | Encounter Summary ---
Author Organization [employer] ([place], [place], [place], [place], [place]) Address [address] [place] [address] Care Team Providers Care Wheel And Pinion Inspector Name Role Phone Unavailable Primary Care Provider Unavailabl e Encounter Details Date Type Department Care Team (Late st Contact Info) Description 11/06/2020 Transcribed Document [facility] [place] [address] ProviderLayton MD [address] [place] [id number] Social History Tobacco Use Types Packs/Day Years Used Date Smoking Tobacco: Never Assessed Sex and Gender Information Value Date Recorded Sex Assigned at Not on file Legal Sex Male 6:48 PM CDT Gender Identity Not on file Sexual Orientation Not on file documented as of this encounter Miscellaneous Notes * Cerner Conversion Note - Layton ProviderMD - 11/06/2020 8:48 AM CDT ED Assessment Entered On: 11/06/2020 9:14 EDT Performed On: 11/06/2020 9:12 EDT by LEATHA CASAS RN ED Quick Look Assessment Level of Consciousness : Alert, Awake Affect/Behavior : Appropriate, Calm, Cooperative Orientation : Oriented x 4 Skin Temperature : Warm Skin Description : Dry LEATHA CASAS RN - 11/06/2020 9:12 EDT ED General-Functional Assess Preferred Communication Mode : Verbal Communication Barrier : None Primary Language : Hebrew Any Spiritual/Cultural Needs or Requests : No Currently in Unsafe Situation : No LEATHA CASAS RN - 11/06/2020 9:12 EDT Social Habits Smoking Status : Never (less than 100 in lifetime; none in last 30 days) Smokeless Tobacco Status : Never Desires Tobacco Cessation Calc : 0 LEATHA CASAS RN - 11/06/2020 9:12 EDT Social History (As Of: 11/06/2020 09:14:51 EDT) Tobacco: Never (less than 100 in lifetime) Smoking Status. (Last Updated: 06/16/2019 11:08:40 EST by CELESTINO RASMUSSEN, RN) Alcohol: Alcohol Use History No. (Last Updated: 06/16/2019 11:08:43 EST by CELESTINO RASMUSSEN, RN) Substance Abuse: Drug Use Hx: No. (Last Updated: 06/16/2019 11:08:47 EST by CELESTINO RASMUSSEN, ALISHA) Cardiovascular ASMT, ED Cardiovascular Assessment WDL : WDL with exceptions Cardiovascular Symptoms : Chest pain with activity, Claudication at rest Heart Rhythm : Regular Nail Bed Color : [place] Chest Pain : Yes Capillary Refill, Left Hand : Less than/Equal to (</=) 2 seconds Capillary Refill, Right Hand : Less than/Equal to (</=) 2 seconds Clubbing Present : No LEATHA CASAS RN - 11/06/2020 9:12 EDT Respiratory Respiratory Assessment WDL : WDL Respiratory Assessment Comment : no resp distress LEATHA CASAS RN - 11/06/2020 9:12 EDT documented in this encounter Plan of Treatment Not on file documented as of this encounter Visit Diagnoses Not on filedocumented in this encounter
--- OUTSIDE RECORDS SUMMARY | 2025-07-08 15:55 | XMS_ITS | Encounter Summary ---
Author Organization [employer] ([place], [place], [place], [place], [place]) [address] [place] [address] Care Team Providers Care Educational Psychology Teacher Name Role Phone Unavailable Primary Care Provider Unavailabl e Encounter Details Date Type Department Care Team (Late st Contact Info) Description 08/15/2019 Transcribed Document [facility] [place] [address] [place] [address] ProviderLayton MD [facility] [place], [place] [id number] Social History Tobacco Use Types Packs/Day Years Used Date Smoking Tobacco: Never Assessed Sex and Gender Information Value Date Recorded Sex Assigned at Not on file Legal Sex Male 6:48 PM CDT Gender Identity Not on file Sexual Orientation Not on file documented as of this encounter Miscellaneous Notes * Cerner Conversion Note - Historical ProviderMD - 08/15/2019 11:20 AM TITLE CLERK CR Chest 1 Vw Portable Ordered: 08/15/2019 Modified Reason for Exam: Chest Pain 08/15/2019 08:32 08/15/2019 11:20 (JORGE WILKINSON PA-C) Reviewed by Provider, No further action required X1 Electronically signed by Isaiah Painter Conversion High Pressure Boiler Operator Cerner at 11/09/2022 12:58 PM CDT documented in this encounter Plan of Treatment Not on file documented as of this encounter Visit Diagnoses Not on filedocumented in this encounter
--- OUTSIDE RECORDS SUMMARY | 2025-07-08 15:55 | XMS_ITS | Encounter Summary ---
Author Organization [employer] ([place], [place], [place], [place], [place]) Address [address] [place] [address] Care Team Providers Care Horse Show Manager Name Role Phone Unavailable Primary Care Provider Unavailabl e Encounter Details Date Type Department Care Team (Late st Contact Info) Description 06/16/2019 Transcribed Document [facility] [place] [address] [place] [address] ProviderLayton MD [facility] [place], [place] [id number] Social History Tobacco Use Types Packs/Day Years Used Date Smoking Tobacco: Never Assessed Sex and Gender Information Value Date Recorded Sex Assigned at Not on file Legal Sex Male 6:48 PM CDT Gender Identity Not on file Sexual Orientation Not on file documented as of this encounter Miscellaneous Notes * Cerner Conversion Note - Layton ProviderMD - 06/16/2019 10:43 AM BEAD FORMING MACHINE OPERATOR Admission History, Adult Entered On: 06/16/2019 20:52 EST Performed On: 06/16/2019 10:43 EST by SURAJ MEJIAS RN-Traveler Advance Directive Patient has Advance Directive *Q : No, patient refuses Advance Directive information SURAJ MEJIAS RN-Traveler - 06/16/2019 20:48 EST Anesthesia/Transfusion History Family History of Anesthesia Reaction : No prior transfusion(s) Blood Transfusion Acceptable to Patient : Yes Transfusion History : Prior anesthesia reaction Type of Anesthesia Reaction : Excessive somnolence Family History of Anesthesia Reaction : None SURAJ MEJIAS RN-Traveler - 06/16/2019 20:48 EST Anticipated Discharge Needs Discharge To, Anticipated : Home Anticipated Discharge Needs at This Time : None SURAJ MEJIAS RN-Traveler - 06/16/2019 20:48 EST Education Topics, Admission Orientation DCP GENERIC CODE Bed Control : Verbalizes understanding Call Light : Verbalizes understanding Confidentiality : Verbalizes understanding Diet/Room Service : Verbalizes understanding Fall Prevention : Verbalizes understanding Patient Safety : Verbalizes understanding SURAJ MEJIAS RN-Traveler - 06/16/2019 20:52 EST Functional Assessment Living Situation : Home Patient Lives With : Spouse Persons Assisting Patient at Home : Spouse Current Daily Living Assistance : None Mobility Assistance Prior to Admission : Independent Current Home Treatments : Blood glucose monitoring SURAJ MEJIAS RN-Traveler - 06/16/2019 20:48 EST General Info Arrived From : Other: [facility] Mode of Arrival on Unit : Stretcher Legal Guardian : Sibling, Spouse Want Family/Rep/Phys Notified of Admit : No Emergency Contact #1 : Ileana Emergency Contact #1 Emergency Contact #1 Relationship : spouse Emergency Contact #2 : Aaliyah Hudson Emergency Contact #2 Emergency Contact #2 Relationship : mother Chief Complaint : Here for cardiac cath Information Obtained From : Patient Primary Language : Kazakh Preferred Communication Mode : Verbal Communication Barrier : None SURAJ MEJIAS RN-Traveler - 06/16/2019 20:48 EST Fall Risk Scales ABCs Fall Injury Risk Identification : None WAL[place] Hx Falls Immediate/Within 3 Months : No [place] Secondary Diagnosis : No WAL[place] Use of Ambulatory Aid : None [place] IV Therapy or IV Access : No [place] Gait/Transferring : Normal, bedrest, immobile [place] Mental Status : Oriented to own ability [place] Fall Risk Score : 0 [place] Fall Scale Risk Level : 0-24 Low Risk [place] Fall Interventions : Adequate lighting, Assistive devices within reach, Bed in low position, Call device within reach, Fall prevention handout/education per facility policy, Frequent orientation to call device, Frequent orientation to surroundings, Hourly comfort/safety rounds, Non-slip footwear, Personal items within reach, Reinforced to call for assistance before getting out of bed, Room free of clutter/spills, Upper side-rails up, Wheels locked, Wires/Cords secured Barriers to Learning : None evident Learning Style Preferences Patient : Verbal explanation SURAJ MEJIAS RN-Traveler - 06/16/2019 20:48 EST Health Histories Smoking Status : Never (less than 100 in lifetime; none in last 30 days) Smokeless Tobacco Status : Never SURAJ MEJIAS RN-Traveler - 06/16/2019 20:48 EST Social History (As Of: 06/16/2019 20:53:17 EST) Tobacco: Never (less than 100 in lifetime) Smoking Status. (Last Updated: 06/16/2019 11:08:40 EST by CELESTINO RASMUSSEN RN) Alcohol: Alcohol Use History No. (Last Updated: 06/16/2019 11:08:43 EST by CELESTINO RASMUSSEN RN) Substance Abuse: Drug Use Hx: No. (Last Updated: 06/16/2019 11:08:47 EST by CELESTINO RASMUSSEN RN) Height and Weight, Clinical Dosing Height Source : Stated Height Entry Format : [place] Height, Feet : 5 ft(Converted to: 152 cm, 60 Inch) Height, Inches : 11 Inch(Converted to: 0 ft 11 Inch, 27.94 cm) Clinical Height : 180.34 cm Weight Source : Standing scale Weight Entry Format : [place] Clinical Dosing Weight : 122.73 kg Weight, Pounds : 270 lb Body Surface Area (BSA) : 2.4 m2 Body Mass Index : 37.7 kg/m2 (HI) [place] Body Weight : 74 kg SURAJ MEJIAS RN-Traveler - 06/16/2019 20:48 EST Infectious Disease History Infectious Disease History : Chicken pox/Shingles, MRSA Fever/Chills Last 48 Hours : No Travel To Regions with Travel Advisories : No Travel Outside [place] Within Last 30 Days : No Contact With Traveler to Advisory Region : No Tuberculosis Symptoms : None SURAJ MEJIAS RN-Traveler - 06/16/2019 20:48 EST Influenza Vaccine Asmt, Adult Previous Vaccines from Immunization Schedule : No qualifying data available. Influenza Immunization, Current Season : Yes Influenza Immunization Date : 06/16/2019 EST SURAJ MEJIAS RN-Traveler - 06/16/2019 20:48 EST Pneumococcal Vaccine Previous Vaccines from Immunization Schedule : No qualifying data available. Pneumonia Immunization Received : No Pneumococcal Risk Assessment < Age 65 : None SURAJ MEJIAS RN-Traveler - 06/16/2019 20:48 EST Order Details Order Detail : N/A SURAJ MEJIAS RN-Traveler - 06/16/2019 20:48 EST Nutrition History Feeding Ability : Independent Adaptive Feeding Equipment : None Adaptive Feeding Equipment : Regular Eating Poorly Due to Decreased Appetite : No Unplanned Weight Loss in Past 3-6 Months : No Malnutrition Screening Tool Total(mal) : 0 Malnutrition Screening Tool Risk Level : Patient not at risk SURAJ MEJIAS RN-Traveler - 06/16/2019 20:48 EST [place] Suicide Severity Rating Scale (C-SSRS) CSSRS Past Month Wish to be : No CSSRS Past Month Suicidal Thoughts : No CSSRS Lifetime Suicide Behavior : No Suicide Severity Rating Score : 0 Suicide Severity Rating : No Additional Care Required at this time SURAJ MEJIAS RN-Traveler - 06/16/2019 20:48 EST Psychosocial History Does Someone Depend on You for Care? : Yes Have Arrangements been Made? : Yes Do You Have a History of the Following? : Patient denies history Currently in Unsafe Situation : No Restraining Order Against Another Person : No SURAJ MEJIAS RN-Traveler - 06/16/2019 20:48 EST Sleep Apnea Risk Assmt Hx of [...] Sleep Apnea Risk Level Score : 4 SURAJ MEJIAS RN-Traveler - 06/16/2019 20:48 EST Valuables and Belongings Valuables and Belongings : Clothing, Personal devices, Personal items, No comfort items, No jewelry, No assistive devices, No respiratory devices, No medications Clothing : Common streetwear Clothing Disposition : Bedside Personal Device Disposition : With patient Personal Devices : Glasses Personal Items : Cell phone Personal Items Disposition : With family SURAJ MEJIAS RN-Traveler - 06/16/2019 20:48 EST documented in this encounter Plan of Treatment Not on file documented as of this encounter Visit Diagnoses Not on filedocumented in this encounter
--- OUTSIDE RECORDS SUMMARY | 2025-07-08 15:56 | XMS_ITS | Encounter Summary ---
Author Organization [employer] ([place], [place], [place], [place], [place]) Address [address] [place] [address] Care Team Providers Care Bender Hand Name Role Phone Unavailable Primary Care Provider Unavailabl e Encounter Details Date Type Department Care Team (Late st Contact Info) Description 08/15/2019 Transcribed Document [facility] [place] [address] [place] [address] ProviderLayton MD [address] [place] [address] Social History Tobacco Use Types Packs/Day Years Used Date Smoking Tobacco: Never Assessed Sex and Gender Information Value Date Recorded Sex Assigned at Not on file Legal Sex Male 6:48 PM CDT Gender Identity Not on file Sexual Orientation Not on file documented as of this encounter Miscellaneous Notes * Cerner Conversion Note - Layton Singh MD - 08/15/2019 11:50 AM 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 [address] ERICH CHAO :1980 Visit Time:08/15/2019 Your Visit Summary Your Care Team Primary [...] Up with RENETTA GILLIS When Within 1 day Where: [address] [facility] [address] [place] [address]- Business (1) Follow Up with LUANN MENJIVAR When Within 2 to 3 days Where: [address] [facility] [address] [place] [address]- Allergies No Known Allergies Immunizations This Visit [...] This Visit (last charted value for your 08/15/2019 visit) Hematology 08/15/2019 7:15 AM WBC: 8.2 K/uL -- Normal range between ( 3.6 and 9.5 ) RBC: 4.88 Million/uL -- Normal range between ( 4.20 and 5.70 ) Hct: 46.3 % -- Normal range between ( 40.1 and 51.0 ) Hgb: 16.0 g/dL -- Normal range between ( 13.5 and 17.3 ) Platelet Count: 224 K/uL -- Normal range between ( 163 and 369 ) MCH: 32.8 pg -- Normal range between ( 25.6 and 32.2 ) MCHC: 34.6 Gram/dL -- Normal range between ( 32.2 and 36.5 ) MCV: 94.9 fL -- Normal range between ( 79.0 and 94.8 ) Slide Review: No Eos %: 2.1 % -- Normal range between ( 0.0 and 7.0 ) [place] #: 0.77 K/uL -- Normal range between ( 0.16 and 1.00 ) Eos #: 0.17 x10(3)/uL -- Normal range between ( 0.00 and 0.80 ) [place] %: 9.4 % -- Normal range between ( 3.0 and 9.0 ) Baso %: 0.5 % -- Normal range between ( 0.0 and 1.5 ) Baso #: 0.04 x10(3)/uL -- Normal range between ( 0.00 and 0.20 ) RDW: 11.5 % -- Normal range between ( 11.7 and 14.9 ) Neut %: 61.9 % -- Normal range between ( 34.0 and 71.0 ) Neut #: 5.10 K/uL -- Normal range between ( 1.56 and 6.13 ) Lymph %: 25.6 % -- Normal range between ( 19.3 and 53.1 ) Lymph #: 2.11 x10(3)/uL -- Normal range between ( 1.00 and 3.90 ) MPV: 10.2 fL -- Normal range between ( 9.4 and 12.4 ) IG#: 0.04 x10(3)/uL -- Normal range between ( 0.00 and 0.05 ) IG%: 0.50 % -- Normal range between ( 0.00 and 0.60 ) General Chemistry 08/15/2019 7:15 AM Creatinine Level: 1.00 mg/dL -- Normal range between ( 0.70 and 1.30 ) Sodium Level: 138 mmol/L -- Normal range between ( 136 and 146 ) Potassium Level: 3.9 mmol/L -- Normal range between ( 3.5 and 5.1 ) Chloride Level: 104 mmol/L -- Normal range between ( 102 and 112 ) Carbon Dioxide Level: 31 mmol/L -- Normal range between ( 21 and 32 ) Anion Gap: 7 -- Normal range between ( 9 and 20 ) Bilirubin Total: 0.7 mg/dL -- Normal range between ( 0.2 and 1.2 ) A/G Ratio: 1.0 -- Normal range between ( 1.1 and 2.5 ) ALT: 44 Units/Liter -- Normal range between ( 16 and 61 ) AST: 37 Units/Liter -- Normal range between ( 5 and 37 ) Globulin: 3.8 Gram/dL -- Normal range between ( 1.5 and 4.5 ) Alk Phos: 75 Units/Liter -- Normal range between ( 27 and 136 ) Bun/Creatinine: 15.0 -- Normal range between ( 8.0 and 20.0 ) Calcium Level: 9.5 mg/dL -- Normal range between ( 8.4 and 10.1 ) eGFR : >60 mL/min/1.73m2 eGFR NonAfrican: >60 mL/min/1.73m2 Glucose Level: 113 mg/dL -- Normal range between ( 74 and 106 ) Blood Urea Nitrogen: 15 mg/dL -- Normal range between ( 7 and 22 ) Protein Total: 7.5 Gram/dL -- Normal range between ( 6.4 and 8.2 ) Albumin Level: 3.7 Gram/dL -- Normal range between ( 3.4 and 5.0 ) Lipase Level: 247 Units/Liter -- Normal range between ( 73 and 393 ) Cardiac Specific Markers 08/15/2019 10:21 AM Troponin I Ultra: <0.015 ng/mL -- Normal range between ( 0.015 and 0.045 ) 08/15/2019 7:15 AM ProBNP: 43 pg/mL -- Normal range between ( 0 and 125 ) Coagulation 08/15/2019 7:15 AM D Dimer Quant: SEE COMMENT mg/L FEU -- Normal range between ( 0.00 and 0.58 ) INR: 1.0 -- Normal range between ( 0.9 and 1.1 ) PTT: 26.4 Second(s) -- Normal range between ( 24.0 and 34.0 ) PT: 11.1 Second(s) -- Normal range between ( 9.6 and 12.0 ) Diagnostic Radiology 08/15/2019 7:28 AM CR Chest 1 Vw Portable: CR Chest 1 Vw Portable Education Materials Nonspecific Chest Pain Chest pain can be caused by many different conditions. There is always a chance that your pain could be related to something serious, such as a heart attack or a blood clot in your lungs. Chest pain can also be caused by conditions that are not life-threatening. If you have chest pain, it is very important to follow up with your health care provider. What are the causes? Causes of this condition include: ??? Heartburn. ??? Pneumonia or bronchitis. ??? Anxiety or stress. ??? Inflammation around your heart (pericarditis) or lung (pleuritis or pleurisy). ??? A blood clot in your lung. ??? A collapsed lung (pneumothorax). This can develop suddenly on its own (spontaneous pneumothorax) or from trauma to the chest. ??? Shingles infection (varicella-zoster virus). ??? Heart attack. ??? Damage to the bones, muscles, and cartilage that make up your chest wall. This can include: ? Bruised bones due to injury. ? Strained muscles or cartilage due to frequent or repeated coughing or overwork. ? Fracture to one or more ribs. ? Sore cartilage due to inflammation (costochondritis). What increases the risk? Risk factors for this condition may include: ??? Activities that increase your risk for trauma or injury to your chest. ??? Respiratory infections or conditions that cause frequent coughing. ??? Medical conditions or overeating that can cause heartburn. ??? Heart disease or family history of heart disease. ??? Conditions or health behaviors that increase your risk of developing a blood clot. ??? Having had chicken pox (varicella zoster). What are the signs or symptoms? Chest pain can feel like: ??? Burning or tingling on the surface of your chest or deep in your chest. ??? Crushing, pressure, aching, or squeezing pain. ??? Dull or sharp pain that is worse when you move, cough, or take a deep breath. ??? Pain that is also felt in your back, neck, shoulder, or arm, or pain that spreads to any of these areas. Your chest pain may come and go, or it may stay constant. How is this diagnosed? Lab tests or other studies may be needed to find the cause of your pain. Your health care provider may have you take a test called an ECG (electrocardiogram). An ECG records your heartbeat patterns at the time the test is performed. You may also have other tests, such as: ??? Transthoracic echocardiogram (TTE). In this test, sound waves are used to create a picture of the heart structures and to look at how blood flows through your heart. ??? Transesophageal echocardiogram (TAMEKA). This is a more advanced imaging test that takes images from inside your body. It allows your health care provider to see your heart in finer detail. ??? Cardiac monitoring. This allows your health care provider to monitor your heart rate and rhythm in real time. ??? Holter monitor. This is a portable device that records your heartbeat and can help to diagnose abnormal heartbeats. It allows your health care provider to track your heart activity for several days, if needed. ??? Stress tests. These can be done through exercise or by taking medicine that makes your heart beat more quickly. ??? Blood tests. ??? Other imaging tests. How is this treated? Treatment depends on what is causing your chest pain. Treatment may include: ??? Medicines. These may include: ? Acid blockers for heartburn. ? Anti-inflammatory medicine. ? Pain medicine for inflammatory conditions. ? Antibiotic medicine, if an infection is present. ? Medicines to dissolve blood clots. ? Medicines to treat coronary artery disease (CAD). ??? Supportive care for conditions that do not require medicines. This may include: ? Resting. ? Applying heat or cold packs to injured areas. ? Limiting activities until pain decreases. Follow these instructions at home: Medicines ??? If you were prescribed an antibiotic, take it as told by your health care provider. Do not stop taking the antibiotic even if you start to feel better. ??? Take duqi-oqp-ckaigqw and prescription medicines only as told by your health care provider. Lifestyle ??? Do not use any products that contain nicotine or tobacco, such as cigarettes and e-cigarettes. If you need help quitting, ask your health care provider. ??? Do not drink alcohol. ??? Make lifestyle changes as directed by your health care provider. These may include: ? Getting regular exercise. Ask your health care provider to suggest some activities that are safe for you. ? Eating a heart-healthy diet. A registered dietitian can help you to learn healthy eating options. ? Maintaining a healthy weight. ? Managing diabetes, if necessary. ? Reducing stress, such as with yoga or relaxation techniques. General instructions ??? Avoid any activities that bring on chest pain. ??? If heartburn is the cause for your chest pain, raise (elevate) the head of your bed about 6 inches (15 cm) by putting blocks under the legs. Sleeping with more pillows does not effectively relieve heartburn because it only changes the position of your head. ??? Keep all follow-up visits as told by your health care provider. This is important. This includes any further testing if your chest pain does not go away. Contact a health care provider if: ??? Your chest pain does not go away. ??? You have a rash with blisters on your chest. ??? You have a fever. ??? You have chills. Get help right away if: ??? Your chest pain is worse. ??? You have a cough that gets worse, or you cough up blood. ??? You have severe pain in your abdomen. ??? You have severe weakness. ??? You faint. ??? You have sudden, unexplained chest discomfort. ??? You have sudden, unexplained discomfort in your arms, back, neck, or jaw. ??? You have shortness of breath at any time. ??? You suddenly start to sweat, or your skin gets clammy. ??? You feel nauseous or you vomit. ??? You suddenly feel light-headed or dizzy. ??? Your heart begins to beat quickly, or it feels like it is skipping beats. These symptoms may represent a serious problem that is an emergency. Do not wait to see if the symptoms will go away. Get medical help right away. Call your local emergency services (911 in the [place] Do not drive yourself to the hospital. This information is not intended to replace advice given to you by your health care provider. Make sure you discuss any questions you have with your health care provider. Document Released: 04/21/2006 Document Revised: 04/05/2017 Document Reviewed: 04/05/2017 [employer] Interactive Patient Education ?? 2019 [employer]. Emergency Awareness and Preventative Care STROKE is [...] Assistance with quitting is available by contacting 3-666-ERSU-NOW. This is a free resource providing counseling, [...] was given the opportunity to ask questions. Patient/Board Handler Name: Patient/Board Handler Signature: Relationship to Patient: Clinician/Hospital Board Handler Signature: Please Provide a Telephone Number Where You Can Be Reached: Is it Permissible To Leave a Message? Date: documented in this encounter Plan of Treatment Not on file documented as of this encounter Visit Diagnoses Not on filedocumented in this encounter
--- OUTSIDE RECORDS SUMMARY | 2025-07-08 15:56 | XMS_ITS | Encounter Summary ---
Author Organization [employer] ([place], [place], [place], [place], [place]) Address [address] [place] [address] Care Team Providers Care Civil Engineer In Training Name Role Phone Unavailable Primary Care Provider Unavailabl e Encounter Details Date Type Department Care Team (Late st Contact Info) Description 06/28/2019 Transcribed Document [facility] [place] [address] [place] [address] ProviderLayton MD [facility] [place], [place] [id number] Social History Tobacco Use Types Packs/Day Years Used Date Smoking Tobacco: Never Assessed Sex and Gender Information Value Date Recorded Sex Assigned at Not on file Legal Sex Male 6:48 PM CDT Gender Identity Not on file Sexual Orientation Not on file documented as of this encounter Miscellaneous Notes * Cerner Conversion Note - Historical ProviderMD - 06/28/2019 8:44 AM 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
--- OUTSIDE RECORDS SUMMARY | 2025-07-08 15:56 | XMS_ITS | Encounter Summary ---
Author Organization [employer] ([place], [place], [place], [place], [place]) Address [address] [place] [address] Care Team Providers Care Senior Training And Development Rep Name Role Phone Unavailable Primary Care Provider Unavailabl e Encounter Details Date Type Department Care Team (Late st Contact Info) Description 08/15/2019 Transcribed Document [facility] [place] [facility] [place] [address] ProviderLayton MD [address] [place] [id number] Social History Tobacco Use Types Packs/Day Years Used Date Smoking Tobacco: Never Assessed Sex and Gender Information Value Date Recorded Sex Assigned at Not on file Legal Sex Male 6:48 PM CDT Gender Identity Not on file Sexual Orientation Not on file documented as of this encounter Miscellaneous Notes * Cerner Conversion Note - Layton ProviderMD - 08/15/2019 7:03 AM 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 Denies SOA, denies Nausea Triage Date/Time : 08/15/2019 7:09 EST SAMMY AGUILAR RN - 08/15/2019 7:09 EST DCP GENERIC CODE Tracking Acuity : 2 - Emergent Tracking Group : [facility] ED SAMMY AGUILAR RN - 08/15/2019 7:09 EST Mode of Arrival : Ambulatory Transported to ED by : Private vehicle To Room Via : Ambulate Accompanied By : Unaccompanied ED Vital Signs : Document Height & Weight : Document ED Allergies : Document ED Reason for Visit : Document Tetanus Immunization : Less than 5 years SAMMY AGUILAR RN - 08/15/2019 7:09 EST Infectious Disease History Physical contact outside [place] in the last 30 days : No Infectious Disease History : Chicken pox/Shingles, MRSA Tuberculosis Symptoms : None SAMMY AGUILAR RN - 08/15/2019 7:09 EST Allergy (As Of: 08/15/2019 07:11:06 EST) Allergies (Active) No Known Allergies Estimated Onset Date: Unspecified ; Created By: CELESTINO RASMUSSEN RN; Reaction Status: Active ; Category: Drug ; Substance: No Known Allergies ; Type: Allergy ; Updated By: CELESTINO RASMUSSEN RN; Reviewed Date: 06/27/2019 20:39 EST Diagnosis Control ED (As Of: 08/15/2019 07:11:06 EST) Problems(Active) Allergic rhinitis (SNOMED CT :379497008 ) Name of Problem: Allergic rhinitis ; Recorder: CELESTINO RASMUSSEN RN; Confirmation: Confirmed ; Classification: Medical ; Code: [id number] ; Contributor System: Conformity ; Last Updated: 06/17/2019 13:06 EST ; Life Cycle Date: 06/17/2019 ; Life Cycle Status: Active ; Vocabulary: SNOMED CT At risk for sleep apnea (IMO :43476946 ) Name of Problem: At risk for sleep apnea ; Recorder: SYSTEM, SYSTEM; Confirmation: Confirmed ; Classification: Medical ; Code: [id number] ; Last Updated: 06/17/2019 13:06 EST ; Life Cycle Date: 06/17/2019 ; Life Cycle Status: Active ; Vocabulary: IMO CAD (coronary artery disease) (SNOMED CT :65630273 ) Name of Problem: CAD (coronary artery disease) ; Recorder: MARTI PAGAN APRN-FAM; Confirmation: Confirmed ; Classification: Medical ; Code: [id number] ; Contributor System: Conformity ; Last Updated: 06/17/2019 13:01 EST ; Life Cycle Date: 06/17/2019 ; Life Cycle Status: Active ; Responsible Provider: MARTI PAGAN APRN-FAM; Vocabulary: SNOMED CT DM2 (diabetes mellitus, type 2) (SNOMED CT :805081827 ) Name of Problem: DM2 (diabetes mellitus, type 2) ; Recorder: MARTI PAGAN APRN-FAM; Confirmation: Confirmed ; Classification: Medical ; Code: [id number] ; Contributor System: WongaChart ; Last Updated: 06/17/2019 13:01 EST ; Life Cycle Date: 06/17/2019 ; Life Cycle Status: Active ; Responsible Provider: MARTI PAGAN APRN-FAM; Vocabulary: SNOMED CT Dyslipidemia (high LDL; low HDL) (SNOMED CT :2851936198 ) Name of Problem: Dyslipidemia (high LDL; low HDL) ; Recorder: MARTI PAGAN APRN-FAM; Confirmation: Confirmed ; Classification: Medical ; Code: [id number] ; Contributor System: WongaChart ; Last Updated: 06/17/2019 13:06 EST ; Life Cycle Date: 06/17/2019 ; Life Cycle Status: Active ; Responsible Provider: MARTI PAGAN APRN-FAM; Vocabulary: SNVidavee CT Severe obesity (BMI 35.0-35.9 with comorbidity) (SNOMED CT :1151561292 ) Name of Problem: Severe obesity (BMI 35.0-35.9 with comorbidity) ; Recorder: MARTI PAGAN APRN-FAM; Confirmation: Confirmed ; Classification: Medical ; Code: [id number] ; Contributor System: Conformity ; Last Updated: 06/17/2019 13:06 EST ; Life Cycle Date: 06/17/2019 ; Life Cycle Status: Active ; Responsible Provider: MARTI PAGAN APRN-FAM; Vocabulary: SNVidavee CT Diagnoses(Active) Chest pain Date: 08/15/2019 ; Diagnosis Type: Reason For Visit ; Confirmation: Complaint of ; Clinical Dx: Chest pain ; Classification: Medical ; Clinical Service: Emergency medicine ; Code: PNED ; Probability: 0 ; Diagnosis Code: [id number] ED Height and Weight Height Source : Stated Height Entry Format : Rickman Height, Feet : 5 ft(Converted to: 152 cm, 60 Inch) Height, Inches : 11 Inch(Converted to: 0 ft 11 Inch, 27.94 cm) Clinical Height : 180.34 cm Weight Source, ED : Standing scale Weight Entry Format : Rickman Weight, Pounds : 254 lb Clinical Dosing Weight : 115.45 kg Body Surface Area (BSA) : 2.34 m2 Body Mass Index : 35.5 kg/m2 (HI) Newman Body Weight (IBW) : 74.31 kg SAMMY AGUILAR RN - 08/15/2019 7:09 EST Electronically signed by Madina [facility] Conversion Fur Examiner Cerner at 11/09/2022 12:55 PM CDT documented in this encounter Plan of Treatment Not on file documented as of this encounter Visit Diagnoses Not on filedocumented in this encounter
--- OUTSIDE RECORDS SUMMARY | 2025-07-08 15:56 | XMS_ITS | Encounter Summary ---
Author Organization [employer] ([place], [place], [place], [place], [place]) Address [address] [place] [address] Care Team Providers Care Program Management Intern Name Role Phone Unavailable Primary Care Provider Unavailabl e Encounter Details Date Type Department Care Team (Late st Contact Info) Description 08/15/2019 Transcribed Document [facility] [place] [address] [place] [address] ProviderLayton MD [address] [place] [address] Social History Tobacco Use Types Packs/Day Years Used Date Smoking Tobacco: Never Assessed Sex and Gender Information Value Date Recorded Sex Assigned at Not on file Legal Sex Male 6:48 PM CDT Gender Identity Not on file Sexual Orientation Not on file documented as of this encounter Miscellaneous Notes * Cerner Conversion Note - Layton Singh MD - 08/15/2019 12:14 PM 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 [address] ERICH CHAO :1980 Visit Time:08/15/2019 Your [...] GILLIS When Within 1 day Where: [address] [facility] [address] [place] [address]- Business (1) Follow Up with LUANN MENJIVAR When Within 2 to 3 days Where: [address] [facility] [address] [place] [address]- Allergies No Known Allergies Immunizations This Visit [...] range between ( 0.0 and 7.0 ) [place] #: 0.77 K/uL -- Normal range between ( 0.16 and 1.00 ) Eos #: 0.17 x10(3)/uL -- Normal range between ( 0.00 and 0.80 ) [place] %: 9.4 % -- Normal range between [...] you start to feel better. ??? Take hmgh-whu-cjczgsl and prescription medicines only as told by [...] 04/21/2006 Document Revised: 04/05/2017 Document Reviewed: 04/05/2017 [employer] Interactive Patient Education ?? 2019 [employer]. Emergency Awareness and Preventative Care STROKE is [...] Assistance with quitting is available by contacting 1-385-GQPB-NOW. This is a free resource providing counseling, [...] was given the opportunity to ask questions. Patient/Lead Bi Developer Name: Patient/Lead Bi Developer Signature: Relationship to Patient: Clinician/Hospital Lead Bi Developer Signature: Please Provide a Telephone Number Where You Can Be Reached: Is it Permissible To Leave a Message? Date: Electronically signed by Elizabeth Painter Conversion Electrolysis Needle Operator Keli at 11/09/2022 1:11 PM CDT documented in this encounter Plan of Treatment Not on file documented as of this encounter Visit Diagnoses Not on filedocumented in this encounter
--- OUTSIDE RECORDS SUMMARY | 2025-07-08 15:56 | XMS_ITS | Encounter Summary ---
Author Organization [employer] ([place], [place], [place], [place], [place]) Address [address] [place] [address] Care Team Providers Care Ict Teacher Name Role Phone Unavailable Primary Care Provider Unavailabl e Encounter Details Date Type Department Care Team (Late st Contact Info) Description 06/27/2019 Transcribed Document [facility] [place] [address] [place] [address] ProviderLayton MD [address] [place] [address] Social History Tobacco Use Types Packs/Day Years Used Date Smoking Tobacco: Never Assessed Sex and Gender Information Value Date Recorded Sex Assigned at Not on file Legal Sex Male 6:48 PM CDT Gender Identity Not on file Sexual Orientation Not on file documented as of this encounter Miscellaneous Notes * [employer]ner Conversion Note - Historical ProviderMD - 06/27/2019 1:43 PM 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 [place] Suicide Severity Rating Scale (C-SSRS) Entered On: 06/27/2019 20:27 EST Performed On: 06/27/2019 20:24 EST by aJs Hewitt RN [place] Suicide Severity Rating Scale (C-SSRS) CSSRS Past Month Wish to be : No CSSRS Past Month Suicidal Thoughts : No CSSRS Lifetime Suicide Behavior : No Suicide Severity Rating Score : 0 Suicide Severity Rating : No Additional Care Required at this time Jas Hewitt RN - 06/27/2019 20:24 EST Electronically signed by Madina [facility] Conversion Lighthouse Keeper Cerner at 11/09/2022 1:10 PM CDT documented in this encounter Plan of Treatment Not on file documented as of this encounter Visit Diagnoses Not on filedocumented in this encounter
--- OUTSIDE RECORDS SUMMARY | 2025-07-08 15:56 | XMS_ITS | Encounter Summary ---
Author Organization [employer] ([place], [place], [place], [place], [place]) Address [address] [place] [address] Care Team Providers Care Forest Pathology Teacher Name Role Phone Unavailable Primary Care Provider Unavailabl e Encounter Details Date Type Department Care Team (Late st Contact Info) Description 06/27/2019 Transcribed Document [facility] [place] [facility] [place] [address] ProviderLayton MD [address] [place] [id number] Social History Tobacco Use Types Packs/Day Years Used Date Smoking Tobacco: Never Assessed Sex and Gender Information Value Date Recorded Sex Assigned at Not on file Legal Sex Male 6:48 PM CDT Gender Identity Not on file Sexual Orientation Not on file documented as of this encounter Miscellaneous Notes * [employer]ner Conversion Note - Layton ProviderMD - 06/27/2019 1:43 PM UPPER TIER ED Assessment Entered On: 06/27/2019 20:27 EST Performed On: 06/27/2019 20:24 EST by Jas Hewitt RN ED Quick Look Assessment Level of Consciousness : Alert, Awake Affect/Behavior : Appropriate, Calm Orientation : Oriented x 4 Jas Hewitt RN - 06/27/2019 20:24 EST ED General-Functional Assess Information Obtained From : Patient Preferred Communication Mode : Verbal Communication Barrier : None Primary Language : Turkmen Any Spiritual/Cultural Needs or Requests : No Currently in Unsafe Situation : No Jas Hewitt RN - 06/27/2019 20:24 EST Social Habits Smoking Status : Never (less than 100 in lifetime; none in last 30 days) Smokeless Tobacco Status : Never Desires Tobacco Cessation Calc : 0 Jas Hewitt RN - 06/27/2019 20:24 EST Social History (As Of: 06/27/2019 20:27:27 EST) Tobacco: Never (less than 100 in lifetime) Smoking Status. (Last Updated: 06/16/2019 11:08:40 EST by CELESTINO RASMUSSEN, RN) Alcohol: Alcohol Use History No. (Last Updated: 06/16/2019 11:08:43 EST by CELESTINO RASMUSSEN, RN) Substance Abuse: Drug Use Hx: No. (Last Updated: 06/16/2019 11:08:47 EST by CELESTINO RASMUSSEN, ALISHA) Cardiovascular ASMT, ED Cardiovascular Assessment WDL : WDL with exceptions (Comment: pt here c/o chest discomfort recent stent placement 1.5 weeks ago nothing makes it better or worse. denies SOA [Jas Hewitt RN - 06/27/2019 20:24 EST] ) Jas Hewitt RN - 06/27/2019 20:24 EST Respiratory Respiratory Assessment WDL : Jas Mason RN - 06/27/2019 20:24 EST Gastrointestinal ED Gastrointestinal Assessment WDL : Jas Mason RN - 06/27/2019 20:24 EST Genitourinary Assessment, ED Genitourinary Assessment WDL : Jas Mason RN - 06/27/2019 20:24 EST Musculoskeletal Musculoskeletal Assessment WDL : Jas Mason RN - 06/27/2019 20:24 EST Integumentary Assessment Integumentary Assessment WDL : WDL with exceptions (Comment: bruising in groin at site of procedure [Jas Hewitt RN - 06/27/2019 20:24 EST] ) Jas Hewitt RN - 06/27/2019 20:24 EST Neurologic ASMT, ED Neurologic Assessment WDL : Jas Mason RN - 06/27/2019 20:24 EST documented in this encounter Plan of Treatment Not on file documented as of this encounter Visit Diagnoses Not on filedocumented in this encounter
--- OUTSIDE RECORDS SUMMARY | 2025-07-08 15:56 | XMS_ITS | Encounter Summary ---
Author Organization [employer] ([place], [place], [place], [place], [place]) Address [address] [place] [address] Care Team Providers Care Blind Eyeletter Name Role Phone Unavailable Primary Care Provider Unavailabl e Encounter Details Date Type Department Care Team (Late st Contact Info) Description 06/27/2019 Transcribed Document [facility] [place] [address] [place] [address] ProviderLayton MD [address] [place] [id number] Social History Tobacco Use Types Packs/Day Years Used Date Smoking Tobacco: Never Assessed Sex and Gender Information Value Date Recorded Sex Assigned at Not on file Legal Sex Male 6:48 PM CDT Gender Identity Not on file Sexual Orientation Not on file documented as of this encounter Miscellaneous Notes * Cerner Conversion Note - Historical ProviderMD - 06/27/2019 9:16 PM ELECTRIC HOIST OPERATOR [facility] [place] [id number] Visit Date/Time: 06/27/2019 21:16:16 ERICH HUDSON The above patient was seen in the hospital today and needs to be excused from work/school until Return to Work/School Date: 06/28/2019 but may not lift over 10lbs until cleared by cardiology per. anurag rodrgíuez Electronically signed by Mad[facility] Conversion Hogshead Press Operator [employer]ner at 11/09/2022 1:08 PM CDT documented in this encounter Plan of Treatment Not on file documented as of this encounter Visit Diagnoses Not on filedocumented in this encounter
--- OUTSIDE RECORDS SUMMARY | 2025-07-08 15:56 | XMS_ITS | Encounter Summary ---
Author Organization [employer] ([place], [place], [place], [place], [place]) Address [address] [place] [address] Care Team Providers Care Operations Plant Attendant Name Role Phone Unavailable Primary Care Provider Unavailabl e Encounter Details Date Type Department Care Team (Late st Contact Info) Description 06/27/2019 Transcribed Document [facility] [place] [facility] [place] [address] [place] [address] ProviderLayton MD [facility] [place] [address] Social History Tobacco Use Types Packs/Day Years Used Date Smoking Tobacco: Never Assessed Sex and Gender Information Value Date Recorded Sex Assigned at Not on file Legal Sex Male 6:48 PM CDT Gender Identity Not on file Sexual Orientation Not on file documented as of this encounter Miscellaneous Notes * [employer]ner Conversion Note - Layton ProviderMD - 06/27/2019 9:53 PM SENIOR SPECIALIST ED Discharge Entered On: 06/27/2019 21:53 EST Performed On: 06/27/2019 21:53 EST by Jas Hewitt RN Discharge Process Patient Disposition : Discharge Personal Belongings With Patient : Yes Patient Education Completed : Yes Teaching Evaluation : Verbalizes understanding IV Discontinued : Not applicable Nursing Documentation Completed : Yes Jas Hewitt RN - 06/27/2019 21:53 EST ED Discharge Discharge To : Home with ambulatory/outpatient follow-up Mode Of Departure : Ambulatory Discharge Instructions Reviewed With, Opportunity For Questions Given : Patient Prescriptions Given to Patient : No Jas Hewitt RN - 06/27/2019 21:53 EST documented in this encounter Plan of Treatment Not on file documented as of this encounter Visit Diagnoses Not on filedocumented in this encounter
--- OUTSIDE RECORDS SUMMARY | 2025-07-08 15:56 | XMS_ITS | Data Portability ---
Author Organization [facility] JAKE Day [place] CLOSED Address [address] [facility] [address] [place] [address] Assessment No assessment recorded. Plan of Treatment Reminders Order Date Submit Date Provider Last Modified By Organization Details Last Modified Time Details Appointments None recorded. Lab CMP, serum or plasma 2020 021 [facility], [address] [place] [address], [id number], 1 15:43:40 glycohemogl obin, total, blood 2020 021 [facility], [address] [place] [address], [id number], 1 15:17:34 homocystein e, serum or plasma 2019 020 [facility], [address] [place] [address], [id number], 0 00:10:41 lipid panel, serum 2019 020 [facility], [address] [place] [address], [id number], 0 08:53:36 general health panel 2019 020 [facility], [address] [place] [address], [id number], 0 08:33:14 glycohemogl obin, total, blood 2019 [facility], [address] [place] [address], [id number], 0 08:40:16 microalbumi n/creatinin e, mass ratio, urine 2019 [facility], [address] [place] [address], [id number], 0 12:08:04 CMP, serum or plasma 2019 020 [facility], [address] [place] [address], [id number], 0 15:07:45 SARS CoV 2 RNA (COVID-19), QL, rehabilitation consultant-PCR, respiratory specimen 2019 [facility], [address] [place] [address], [id number], 0 10:06:[address] referral 2019 020 [email or web address] Not available 0 15:59:21 diabetic ophthalmolo gy referral 2019 020 [email or web address] 3 Jared Middleton MD, [address], [facility], [place], [address], 0 15:41:16 diabetic ophthalmolo gy referral 2019 020 [email or web address] Jared Middleton MD, [address], [facility], [place], [address], 0 12:38:30 Procedures None recorded. Surgeries None recorded. Imaging None recorded. Medication Orders nystatin 100,000 unit/gram topical cream 2020 021 [id number], [address], [place], [place], [id number], 13:30:58 mupirocin 2 % topical ointment 2020 021 [id number], [address], [place], [place], [phone], 13:30:49 Patient TargetsNo targets recorded. Patient Instructions Encounter Date Encounter Id Patient Instructions Last Modified By Organization Details Last Modified Time 02/16/2020 [id number] high cholesterol : care instructions ealchureiqi Not available 02/16/2020 14:29:27 When You Want to Lose Weight: Care Instructions ealchureiqi Not available 02/16/2020 14:29:27 snoring: care instructions ealchureiqi Not available 02/16/2020 14:29:27 9 things to do i f you've been exposed to covid-19 [facility] Not available 02/16/2020 14:29:27 dash diet: care instructions ealchureiqi Not available 02/16/2020 14:29:27 gastroesophageal reflux disease (GERD): care instructions ealchureiqi Not available 02/16/2020 14:29:28 type 2 diabetes: care instructions ealchureiqi Not available 02/16/2020 14:29:27 1. Diabetes mellitus type 2; advised patient to continue to take current medication follow diabetic diet and check blood sugar occasionally and bring a log of blood sugar to the next visit, will refer patient to eye doctor for annual eye exam. 2. Hyperlipidemia; advised patient to continue to take his medication, follow low-fat diet, will check CMP. 3. Status post IA and stent placement in June; continue to take current medication and follow up with cardiology as recommended before or as needed. 4. GERD; follow GERD precautions, take Pepcid as needed and provide him with handout to follow. 5. Hypertension; continue take current medication follow DASH diet, check blood pressure occasionally and bring a log blood pressure next visit. 6. Obesity; cut down calories by 500-calorie a day to lose 1-1/2 pounds per week and exercise. 7. Snoring rule out obstructive sleep apnea; offered to refer patient to specialist to evaluate him for possible sleep study but patient deferred. 8. Exposure to COVID 19; will order COVID 19 test advised patient to quarantine himself and close contact and will provide him with handouts about exposure to follow. 9. Follow up in 6 weeks fasting for physical or as needed, if condition gets worse go to ER or come back to clinic. ealchureiqi Not available 02/18/2020 12:55:54 04/19/2020 [id number] high cholesterol : care instructions ealchureiqi Not available 04/19/2020 15:23:12 When You Want to Lose Weight: Care Instructions ealchureiqi Not available 04/19/2020 15:23:12 corns and callus es: care instructions ealchureiqi Not available 04/19/2020 15:23:13 snoring: care instructions ealchureiqi Not available 04/19/2020 15:23:11 dash diet: care instructions ealchureiqi Not available 04/19/2020 15:23:12 gastroesophageal reflux disease (GERD): care instructions ealchureiqi Not available 04/19/2020 15:23:12 type 2 diabetes: care instructions ealchureiqi Not available 04/19/2020 15:23:12 1. General healt h exam/obesity; will get FLP and general health panel and advised him to exercise and diet by cutting down 500-calorie a day to lose 1-1/2 pounds per week and will give him pneumovax. 2. premature CAD /history of IA status post stent placement; check homocystine level, continue to take current medication, follow up with cardiology as recommended before or as needed. 3. Hyperlipidemia; advised patient to continue to take her medication, follow low-fat diet ,check lipid panel. 4. Bilateral feet callus is; provide him handout to follow if persist will consider to refer him to podiatry. 5.hypertension; continue to take current medication, follow low-salt diet, check blood pressure occasionally and bring a log blood pressure to the next visit. 6. Diabetes mellitus type 2; continue to take current medication, follow diabetic diet and check blood sugar occasionally and bring a log blood sugar to the next visit refer patient to our eye doctor for annual eye exam, check hemoglobin A1c urine for microalbumin/creati nine ratio. 7.snoring rule out obstructive sleep apnea; refer patient to specialist for further evaluation and management possible getting sleep study. 8.Follow up in 3 months or as needed, if condition gets worse go to ER or come back to clinic. ealchureiqi Not available 04/23/2020 21:09:24 01/13/2021 [id number] high cholesterol : care instructions ealchureiqi Not available 01/13/2021 13:30:41 When You Want to Lose Weight: Care Instructions ealchureiqi Not available 01/13/2021 13:30:41 dash diet: care instructions ealchureiqi Not available 01/13/2021 13:30:41 gastroesophageal reflux disease (GERD): care instructions ealchureiqi Not available 01/13/2021 13:30:41 type 2 diabetes: care instructions ealchureiqi Not available 01/13/2021 13:30:41 1.rash of the penile area and small abrasion possibly due to balanitis/not interested in STD testing; use nystatin ointment and mupirocin ointment as directed and and if persist might consider to refer patient to urology further evaluation and management. 2.. Diabetes mellitus type 2; continue to take current medication, follow diabetic diet, check blood sugar occasionally and bring a log blood sugar to the next visit. 3. Hyperlipidemia; continue to take current medication, follow low-fat diet and check CMP. 4. GERD; continue take her medication as needed and follow GERD precaution. 5. Hypertension; continue to take current medication, follow DASH diet, check blood pressure occasionally and bring a log of blood pressure to the next visit. 6. Obesity; cut down calories by 500-calorie a day to lose 1.5 pounds per week and exercise. 7. CAD; continue to take current medication follow up with cardiology as recommended before or as needed. 8. Follow up in 3-4 days if no improvement or 3 months for physical or as needed, if condition gets worse go to ER or come back to clinic. 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 S juhi Referring Physician: Cynthia Lugo [facility], Encounter Date: 04/19/2020 Results Created Date Observation Date Name Description Value Unit Range Abnormal Flag Note LastModifiedBy Organization Detail LastModifiedTime 02/16/20 20 02/19/2020 SARS CoV 2 RNA (COVI D-19) , QL, rehabilitation consultant-P CR, respi rator y speci men sars cov2 result POSITI VE abnormal Not Available [facility] [address] [place] [address], [id number], 02/19/2020 10:06:39 04/22/20 20 04/22/2020 gener al healt h panel glucose 162 mg/dL 74-100 high Not Available [facility] [address] [place] [address], [address], 04/22/2020 09:05:37 04/22/20 20 04/22/2020 gener al healt h panel blood urea nitrogen 16 mg/dL 6-20 normal Not Available [facility] [address] [place] [address], [address], 04/22/2020 09:05:37 04/22/20 20 04/22/2020 gener al healt h panel creatinine 0.92 mg/dL 0.70-1 .25 normal Not Available [facility] [address] [place] [address], [address], 04/22/2020 09:05:37 04/22/20 20 04/22/2020 gener al healt h panel BUN/creatini ne ratio 17 (calc ) 10-20 normal Not Available [facility] [address] [place] [address], [address], 04/22/2020 09:05:37 04/22/20 20 04/22/2020 gener al healt h panel sodium 139 mmol/ L 136-14 5 normal Not Available [facility] [address] [place] [address], [address], 04/22/2020 09:05:37 04/22/20 20 04/22/2020 gener al healt h panel potassium 4.3 mmol/ L 3.4-5. 0 normal Not Available [facility] [address] [place] [address], [address], 04/22/2020 09:05:37 04/22/20 20 04/22/2020 gener al healt h panel chloride 101 mmol/ L 98-107 normal Not Available [facility] [address] [place] [address], [address], 04/22/2020 09:05:37 04/22/2004/22/2020 gener al healt h panel carbon dioxide 29 mmol/ L 20-32 normal Not Available [facility] [address] [place] [address], [address], 04/22/2020 09:05:37 04/22/20 20 04/22/2020 gener al healt h panel anion gap 9 (calc ) 7-25 normal Not Available [facility] [address] [place] [address], [address], 04/22/2020 09:05:37 04/22/2004/22/2020 gener al healt h panel calcium 9.3 mg/dL 8.6-10 .2 normal Not Available [facility] [address] [place] [address], [address], 04/22/2020 09:05:37 04/22/2004/22/2020 gener al healt h panel total protein 6.8 g/dL 6.4-8. 3 normal Not Available [facility] [address] [place] [address], [address], 04/22/2020 09:05:37 04/22/20 20 04/22/2020 gener al healt h panel albumin 4.2 g/dL 3.5-5. 2 normal Not Available [facility] [address] [place] [address], [address], 04/22/2020 09:05:37 04/22/20 20 04/22/2020 gener al healt h panel globulin 2.6 g/dL_ (calc ) 1.5-4. 5 normal Not Available [facility] [address] [place] [address], [address], 04/22/2020 09:05:37 04/22/20 20 04/22/2020 gener al healt h panel albumin/glob ulin ratio 1.6 (calc ) 1.1-2. 5 normal Not Available [facility] [address] [place] [address], [address], 04/22/2020 09:05:37 04/22/20 20 04/22/2020 gener al healt h panel bilirubin, total 0.5 mg/dL 0.1-1. 2 normal Not Available [facility] [address] [place] [address], [address], 04/22/2020 09:05:37 04/22/20 20 04/22/2020 gener al healt h panel alkaline phosphatase 66 U/L 40-130 normal Not Available [facility] [address] [place] [address], [address], 04/22/2020 09:05:37 04/22/20 20 04/22/2020 gener al healt h panel AST 24 U/L 0-40 normal Not Available [facility] [address] [place] [address], [address], 04/22/2020 09:05:37 04/22/20 20 04/22/2020 gener al healt h panel ALT 32 U/L 0-41 normal Not Available [facility] [address] [place] [address], [address], 04/22/2020 09:05:37 04/22/20 20 04/22/2020 gener al healt h panel GFR 118 >= 60 normal Not Available [facility] [address] [place] [address], [address], 04/22/2020 09:05:37 04/22/2004/22/2020 gener al healt h panel GFR non- 102 >= 60 normal NOT E NEW calcu latio n for GFR is based on the Natio nal Kidne y Found ation CKD-E PI equat ion and allow s for repor ting GFR value s great er than 60 mL/mi n/1.7 3 m2. This calcu latio n has not been valid ated for patie nts less than 18 yrs., pregn ant women and Hispa nics. Chron ic kidne y disea se is defin ed as kidne y damag e or GFR less than 60 mL/mi n/1.7 3 m2 for 3 month s or longe r. Not Available [facility] [address] [place] [address], [address], 04/22/2020 09:05:37 04/22/2004/22/2020 gener al healt h panel white blood cells 8.4 K/uL 3.8-10 .8 normal Not Available [facility] [address] [place] [address], [address], 04/22/2020 09:05:37 04/22/2004/22/2020 gener al healt h panel red blood cells 4.83 M/uL 4.20-5 .80 normal Not Available [facility] [address] [place] [address], [address], 04/22/2020 09:05:37 04/22/2004/22/2020 gener al healt h panel hemoglobin 16.1 g/dL 14.0-1 8.0 normal Not Available [facility] [address] [place], [address], 04/22/2020 09:05:37 04/22/2004/22/2020 gener al healt h panel hematocrit 45.6 % 40.0-5 2.0 normal Not Available [facility] [address] [place], [address], 04/22/2020 09:05:37 04/22/2004/22/2020 gener al healt h panel MCV 95 fL 80-100 normal Not Available [address], [address], 04/22/2020 09:05:37 04/22/2004/22/2020 gener al healt h panel MCH 33 pg 26-35 normal Not Available [facility] [address] [place] [address], [address], 04/22/2020 09:05:37 04/22/2004/22/2020 gener al healt h panel MCHC 35 g/dL 32-36 normal Not Available [facility] [address] [place] [address], [address], 04/22/2020 09:05:37 04/22/2004/22/2020 gener al healt h panel RDW 12.7 % 11.0-1 5.0 normal Not Available [facility] [address] [place] [address], [address], 04/22/2020 09:05:37 04/22/2004/22/2020 gener al healt h panel MPV 8.0 fL 6.2-10 .5 normal Not Available [facility] [address] [place] [address], [address], 04/22/2020 09:05:37 04/22/2004/22/2020 gener al healt h panel platelet count 207 K/uL 130-40 0 normal Not Available [facility] [address] [place] [address], [address], 04/22/2020 09:05:37 04/22/2004/22/2020 gener al healt h panel neutrophil,a bsolute 4.8 K/uL 1.6-8. 4 normal Not Available [address], [address], 04/22/2020 09:05:37 04/22/20 20 04/22/2020 gener al healt h panel lymphocyte,a bsolute 2.6 K/uL 0.4-5. 1 normal Not Available [facility] [address] [place] [address], [address], 04/22/2020 09:05:37 04/22/20 20 04/22/2020 gener al healt h panel monocyte,abs olute 0.8 K/uL 0.0-1. 2 normal Not Available [facility] [address] [place] [address], [address], 04/22/2020 09:05:37 04/22/20 20 04/22/2020 gener al healt h panel eosinophil,a bsolute 0.2 K/uL 0.0-0. 8 normal Not Available [facility] [address] [place] [address], [address], 04/22/2020 09:05:37 04/22/20 20 04/22/2020 gener al healt h panel basophil,abs olute 0.1 K/uL 0.0-0. 3 normal Not Available [facility] [address] [place] [address], [address], 04/22/2020 09:05:37 04/22/20 20 04/22/2020 gener al healt h panel % neutrophils 56.8 % 42.0-7 8.0 normal Not Available [facility] [address] [place] [address], [address], 04/22/2020 09:05:37 04/22/20 20 04/22/2020 gener al healt h panel % lymphocytes 31.0 % 11.0-4 7.0 normal Not Available [facility] [address] [place] [address], [address], 04/22/2020 09:05:37 04/22/20 20 04/22/2020 gener al healt h panel % monocytes 9.1 % 0.0-11 .0 normal Not Available [facility] [address] [place] [address], [address], 04/22/2020 09:05:37 04/22/20 20 04/22/2020 gener al healt h panel % eosinophils 2.2 % 0.0-7. 0 normal Not Available [facility] [address] [place] [address], [address], 04/22/2020 09:05:37 04/22/20 20 04/22/2020 gener al healt h panel % basophils 0.9 % 0.0-3. 0 normal Not Available [facility] [address] [place] [address], [address], 04/22/2020 09:05:37 04/22/20 20 04/22/2020 gener al healt h panel nucleated red cells 0.0 % 0.0-0. 9 normal Not Available [facility] [address] [place] [address], [address], 04/22/2020 09:05:37 04/22/20 20 04/22/2020 gener al healt h panel nucleated RBCs, absolute 0.00 K/uL not estab. normal Not Available [facility] [address] [place] [address], [address], 04/22/2020 09:05:37 04/22/20 20 04/22/2020 gener al healt h panel TSH 3.790 uIU/m L 0.290- 5.500 normal Not Available [facility] [address] [place] [address], [address], 04/22/2020 09:05:37 04/22/20 20 04/22/2020 glyco hemog lobin , total , blood glyco HGB A1C 7.3 % 0.0-5. 6 high Not Available [facility] [address] [place] [address], [address], 04/22/2020 08:40:16 04/22/2004/22/2020 glyco hemog lobin , total , blood estimated avg. glucose 163 mg/dL _(gabriel c) normal New guide lines by the Ameri can Diabe mar[facility] elena Ass[employer] iatio n state that a hemog lobin A1c level of 5.7-6 .4% indic ates an incre ased risk of diabe maria elena. A resul t of 6.5% or highe r is diagn ostic of diabe maria elena. Not Available [facility] [address] [place] [address], [address], 04/22/2020 08:40:16 04/22/2004/22/2020 lipid panel , serum HDL cholesterol 31 mg/dL 56-242 low Not Available [facility] [address] [place] [address], [address], 04/22/2020 08:53:36 04/22/2004/22/2020 lipid panel , serum triglyceride s 139 mg/dL 0-149 normal TRIGL YCERI DE RANGE S LIZ L: < 150 BORDE RLINE HIGH: 150 - 199 HIGH: 200 - 499 VERY HIGH: > OR = 500 Not Available [facility] [address] [place] [address], [address], 04/22/2020 08:53:36 04/22/2004/22/2020 lipid panel , serum cholesterol 131 mg/dL 0-199 normal AARON STERO L (TOTA L) RANGE S JESS ABLE: < 200 BORDE RLINE : 200 - 239 HIGHE R RISK: > 239 Not Available [facility] [address] [place] [address], [address], 04/22/2020 08:53:36 04/22/2004/22/2020 lipid panel , serum LDL cholesterol 72 mg/dL _(gabriel c) 0-99 normal LDL AARON STERO L RANGE S OPTIM AL: < 100 NEAR/ ABOVE OPTIM AL: 100 - 129 BORDE RLINE HIGH: 130 - 159 HIGH: 160 - 189 VERY HIGH: > OR = 190 Not Available [facility] [address] [place] [address], [address], 04/22/2020 08:53:36 04/22/20 20 04/22/2020 micro album in/cr eatin ine, mass ratio , urine microalbumin , random 21 mg/L 0-19 high Not Available [facility] [address] [place], [address], 04/22/2020 12:08:04 04/22/20 20 04/22/2020 micro album in/cr eatin ine, mass ratio , urine creatinine,u r,random 94 mg/dL normal NO LIZ L RANGE ESTAB LISHE D FOR RANDO M URINE . Not Available [facility] [address] [place], [address], 04/22/2020 12:08:04 04/22/20 20 04/22/2020 micro album in/cr eatin ine, mass ratio , urine MA/creatinin e ratio 22 mcg/m g 0-29 normal Liz l MA/Cr eatin ine ratio is defin ed as less than 30 mcg/m g and incre ased urina ry album in excre tion is defin ed as great er than or equal to 30 mcg/m g. Becau se of varia bilit y in urina ry album in excre tion, 2 of 3 speci mens colle cted withi n a 3 to 6 month perio d shoul d be abnor mal befor e consi giovanni g a patie nt to have album inuri a. Exerc ise withi n 24 hrs., infec tion, fever , CHF, marke d hyper glyce alejo, menst ruati on, and marke d hyper tensi on november eleva te MA/CR indep enden tly of kidne y damag e. REFER ENCE: Conrad can [facility] . Stds. of Medic al Care in Diabe maria elena, 2016 Vol 39, Suppl 1. Not Available [facility] [address] [place], [address], 04/22/2020 12:08:04 04/22/20 20 04/24/2020 homoc ystei ne, serum or plasm a homocysteine 7.2 umol/ L <11.4 normal Homoc ystei ne is incre ased by funct ional defic iency of folat e or vitam in B12. Testi ng for methy lmalo rivka acid diffe renti ates betwe en these defic ienci es. Other cause s of incre ased homoc ystei ne inclu de renal failu re, folat e antag onist s such as metho trexa te and pheny toin, and expos ure to nitro us oxide . Latoya Smiley, et al., Jessy Inter n Med. 1999; 131(5 ):331 -9. TEST PERFO RMED AT: [facility] [address] [place] [address] RACHAEL Meyer MD Not Available [facility] [address] [place], [address], 04/24/2020 00:10:41 01/14/20 21 01/13/2021 glyco hemog lobin , total , blood glyco HGB A1C 10.2 % 0.0-5. 6 high Not Available [facility] [address] [place], [address], 01/13/2021 15:17:34 01/14/20 21 01/13/2021 glyco hemog lobin , total , blood estimated avg. glucose 246 mg/dL _(gabriel c) normal A1c value s betwe en 5.7% to 6.4% indic ate predi abete s. Resul ts 6.5% or great er is diagn ostic of diabe maria elena. Ameri can [facility] [employer] iatio n (diab etes. org) Not Available [facility] [address] [place], [address], 01/13/2021 15:17:34 01/14/20 21 01/13/2021 CMP, serum or plasm a glucose 270 mg/dL 74-100 high Not Available [facility] [address] [place], [address], 01/13/2021 15:43:40 01/14/20 21 01/13/2021 CMP, serum or plasm a blood urea nitrogen 15 mg/dL 6-20 normal Not Available [facility] [address] [place] [address], [address], 01/13/2021 15:43:40 01/14/20 21 01/13/2021 CMP, serum or plasm a creatinine 0.89 mg/dL 0.70-1 .28 normal Not Available [facility] [address] [place] [address], [address], 01/13/2021 15:43:40 01/14/20 21 01/13/2021 CMP, serum or plasm a BUN/creatini ne ratio 17 (calc ) 10-20 normal Not Available [facility] [address] [place] [address], [id number], 01/13/2021 15:43:40 01/14/20 21 01/13/2021 CMP, serum or plasm a sodium 137 mmol/ L 136-14 5 normal Not Available [facility] [address] [place] [address], [id number], 01/13/2021 15:43:40 01/14/20 21 01/13/2021 CMP, serum or plasm a potassium 4.3 mmol/ L 3.4-5. 0 normal Not Available [facility] [address] [place] [address], [phone], 01/13/2021 15:43:40 01/14/20 21 01/13/2021 CMP, serum or plasm a chloride 99 mmol/ L 98-107 normal Not Available [facility] [address] [place] [address], [id number], 01/13/2021 15:43:40 01/14/20 21 01/13/2021 CMP, serum or plasm a carbon dioxide 26 mmol/ L 22-31 normal Not Available [facility] [address] [place] [address], [phone], 01/13/2021 15:43:40 01/14/20 21 01/13/2021 CMP, serum or plasm a anion gap 12 (calc ) 7-25 normal Not Available [facility] [address] [place] [address], [id number], 01/13/2021 15:43:40 01/14/20 21 01/13/2021 CMP, serum or plasm a calcium 9.5 mg/dL 8.6-10 .2 normal Not Available [facility] [address] [place] [address], [phone], 01/13/2021 15:43:40 01/14/20 21 01/13/2021 CMP, serum or plasm a total protein 7.2 g/dL 6.4-8. 3 normal Not Available [facility] [address] [place] [address], [phone], 01/13/2021 15:43:40 01/14/20 21 01/13/2021 CMP, serum or plasm a albumin 4.1 g/dL 3.5-5. 2 normal Not Available [facility] [address] [place] [address], [id number], 01/13/2021 15:43:40 01/14/20 21 01/13/2021 CMP, serum or plasm a globulin 3.1 g/dL_ (calc ) 1.5-4. 5 normal Not Available [facility] [address] [place] [address], [phone], 01/13/2021 15:43:40 01/14/20 21 01/13/2021 CMP, serum or plasm a albumin/glob ulin ratio 1.3 (calc ) 1.1-2. 5 normal Not Available [facility] [address] [place] [address], [id number], 01/13/2021 15:43:40 01/14/20 21 01/13/2021 CMP, serum or plasm a bilirubin, total 0.5 mg/dL 0.1-1. 2 normal Not Available [facility] [address] [place], [address], 01/13/2021 15:43:40 01/14/20 21 01/13/2021 CMP, serum or plasm a alkaline phosphatase 75 U/L 40-129 normal Not Available [facility] [address] [place] [address], [phone], 01/13/2021 15:43:40 01/14/20 21 01/13/2021 CMP, serum or plasm a AST 38 U/L 0-40 normal Not Available [facility] [address] [place] [address], [id number], 01/13/2021 15:43:40 01/14/20 21 01/13/2021 CMP, serum or plasm a ALT 50 U/L 0-41 high Not Available [facility] [address] [place] [address], [phone], 01/13/2021 15:43:40 01/14/20 21 01/13/2021 CMP, serum or plasm a GFR 121 >= 60 normal Not Available [facility] [address] [place], [address], 01/13/2021 15:43:40 01/14/20 21 01/13/2021 CMP, serum or plasm a GFR non- 105 >= 60 normal NOT E Chron ic kidne y disea se is defin ed as kidne y damag e for more than 3 month s or a GFR less than 60 mL/mi n/1.7 3 m2 for great er than 3 month s. This calcu latio n has not been valid ated in pregn ant women . For pedia tric patie nts refer to Saman Molina y Found ation https ://phyllis fowler.o rg/pr ofess ional s/KDO QI/gf r_cal culat orPed Not Available [facility] [address] [place] [address], [phone], 01/13/2021 15:43:40 01/14/20 21 01/13/2021 micro album in/cr eatin ine, mass ratio , urine microalbumin , random 307 mg/L 0-19 high Not Available [facility] [address] [place], [address], 01/13/2021 15:59:05 01/14/20 21 01/13/2021 micro album in/cr eatin ine, mass ratio , urine creatinine,u r,random 190 mg/dL normal NO LIZ L RANGE ESTAB LISHE D FOR RANDO M URINE . Not Available [facility] [place], [address], 01/13/2021 15:59:05 01/14/20 21 01/13/2021 micro album in/cr eatin ine, mass ratio , urine MA/creatinin e ratio 162 mcg/m g 0-29 high Not Available [facility] [address] [place], [address], 01/13/2021 15:59:05 Result Notes None recorded. Problems Name Problem SNOMED Code Status Onset Date Resolution Date Notes Provider Name and Address Organization Details Recorded Time Cerebrovasc ular accident 017494607 Completed 201804/19/2020 CYNTHIA Armendariz MD [address] [place] [address], [phone] , [facility] 0 14:57:17 Gout 31228448 Active 2019 Getachew alston [facility] 0 13:20:45 Diabetes mellitus 28364456 [facility] 13:20:[facility] Problem Notes None recorded. Procedures Surgical History Date Name Laterality Status Provider Name and Address Organization Details Recorded Time 04/19/20 Diabetic Foot Exam completed CYNTHIA LUGO MD [address] [place] [address], [phone], [facility] 04/19/2020 15:16:39 placement of stent in pulmonary artery completed [facility] 02/16/2020 13:20:11 Tonsillectomy completed [facility] 04/19/2020 14:36:18 Imaging Results None recorded. Procedure Notes None recorded. Medical Equipment None Reported. Allergies No known drug allergies Medications Name Sig Start Date Stop Date Status Note LastModified by Organization Details LastModified Time methocarbam ol 500 mg tablet TAKE 1 TABLET BY MOUTH THREE TIMES DAILY FOR 5 DAYS NEEDED FOR MUSCLE SPASM active Not Available Not Available No t Available metformin 500 mg tablet 04/19 completed Not Available Not Available Not Available atorvastati n 80 mg tablet TAKE 1 TABLET BY MOUTH DAILY active Not Available Not Available No t Available prednisone 10 mg tablet 04/19 completed Not Available Not Available Not Available clindamycin HCl 300 mg capsule 04/19 completed Not Available Not Available Not Available metoprolol succinate ER 50 mg tablet,exte nded release 24 hr TAKE 1 TABLET BY MOUTH DAILY active Not Available Not Available No t Available famotidine 40 mg tablet 04/19 completed Not Available Not Available Not Available prednisone 20 mg tablet 04/19 completed Not Available Not Available Not Available isosorbide mononitrate ER 30 mg tablet,exte nded release 24 hr TAKE 1 TABLET BY MOUTH EVERY DAY IN THE MORNING 01/13 completed Not Available Not Available Not Available clopidogrel 75 mg tablet TAKE 1 TABLET BY MOUTH EVERY DAY active Not Available Not Available No t Available aspirin 81 mg tablet,mariana yed release TK 1 T PO QD 04/19 completed Not Available Not Available Not Available amoxicillin 500 mg tablet active Not Available Not Available Not Available famotidine 20 mg tablet TK 1 T PO QD active Not Available Not Available No t Available cephalexin 500 mg capsule TK 1 C PO Q 6 H FOR 10 DAYS 04/19 completed Not Available Not Available Not Available metformin 1,000 mg tablet TAKE 1 TABLET BY MOUTH TWICE DAILY WITH MEALS active Not Available Not Available No t Available nystatin 100,000 unit/gram topical cream APPLY TOPICALLY TO THE AFFECTED AREA TWICE DAILY FOR 10 DAYS active Not Available Not Available No t Available metoprolol tartrate 50 mg tablet Take 1 tablet every day by oral route. 04/19 completed Not Available Not Available Not Available indomethaci n 50 mg capsule TK 1 C PO TID 04/19 completed Not Available Not Available Not Available diclofenac sodium 75 mg tablet,mariana yed release 04/19 completed Not Available Not Available Not Available aspirin 81 mg tablet Take 1 tablet every day by oral route. active Not Available Not Available No t Available mupirocin 2 % topical ointment APPLY SMALL AMOUNT TOPICALLY TO THE AFFECTED AREA THREE TIMES DAILY FOR 7 TO 10 DAYS active Not Available Not Available No t Available colchicine 0.6 mg tablet active Not Available Not Available Not Available indomethaci n ER 75 mg capsule,ext ended release TK 1 C PO BID 01/13 completed Not Available Not Available Not Available Zirgan 0.15 % eye gel 04/19 completed Not Available Not Available Not Available Brilinta 90 mg tablet TK 1 T PO BID UTD 01/13 completed Not Available Not Available Not Available Trulicity 1.5 mg/0.5 mL subcutaneou s pen injector ADMINISTE R 1.5 MG UNDER THE SKIN EVERY WEEK AFTER FINISHING 0.75MG active Not Available Not Available No t Available Trulicity 0.75 mg/0.5 mL subcutaneou s pen injector INJECT 0.75MG SUBCUTANE OUS EVERY WEEK X 4 WEEKS THEN INCREASE TO THE 1.5MG active Not Available Not Available No t Available Afluria Qd (36 mos up)(PF)60 mcg (15 mcg x4)/0.5 mL IM syringe ADM 0.5ML IM UTD active Not Available Not Available No t Available Vitals Date Recorded Body height Body mass index (BMI) Body weight Body temperature Heart rate Respiratory rate Systolic And Diastolic Provider Name and Address Organization Details Last Updated DateTime 1 182.88 cm 36.1 kg/m2 624424. 57 g 97.2 [degF] 72 /min 16 /min 126/82 mm[Hg] Darian Patrick [facility] 1 13:04:55 Date Recorded Body height Body mass index (BMI) Body weight Body temperature Provider Name and Address Organization Details Last Updated DateTime 02/16/2020 180.34 cm 36.3 kg/m2 549449.02 g 96.9 [degF] Getachew Willingham [facility] 02/16/2020 13:16:05 Date Recorded Body height Respiratory rate Body mass index (BMI) Body weight Body temperature Heart rate Systolic And Diastolic Provider Name and Address Organization Details Last Updated DateTime 0 182.88 cm 16 /min 35.4 kg/m2 725778. 31 g 97.8 [degF] 78 /min 138/80 mm[Hg] Getachew Willingham [facility] 0 14:50:37 Social History Question Answer Notes LastModified by [employer] Details LastModified Time Tobacco Smoking Status [facility] 13:21:16 How Much Tobacco Do You Chew? None Information not available 02/16/2020 What Was The Date Of Your Most Recent Tobacco Screening? 01/13/2021 Information not available 01/13/2021 How Much Tobacco Do You Smoke? No Information not available 02/16/2020 How Many Years Have You Smoked Tobacco? 0 Information not available 02/16/2020 Sex: Unknown Functional Status Question Answer Note LastModified by [employer] Details LastModified Time Do you or have you ever used smokeless tobacco? Never used smokeless tobacco Information not available 02/16/2020 Do you or have you ever used e-cigarettes or vape? Never used electronic cigarettes Information not available 02/16/2020 Mental Status None recorded. Family History Nothing Reported. Medical History No medical history recorded. Immunizations Vaccine Type Date Status Note Provider Nam e and Address Organization Details Recorded Time pneumococcal polysaccharide PPV23 0 completed [facility] 04/19/2020 15:37:08 Influenza, split virus, quadrivalent, preservative 9 completed [facility]w [facility] 02/16/2020 13:19:43 Influenza, split virus, quadrivalent, preservative 0 completed [facility] 04/19/2020 14:35:26 Past Encounters Encounter ID Performer Location Encounter Start Date Encounter Closed Date Diagnosis/Indication Diagnosis SNOMED-CT Code Diagnosis ICD10 Code Diagnosis IMO Codes Diagnosis Note [id number] CYNTHIA LUGO MD [facility] [address] [place] [address] 02/16/2020 13:11:34 02/16/2020 14:36:38 Exposure to SARS-CoV-2 049482244 Z20.828 Type 2 chidi betes mellitus without complication 146387535 E11.9 Hyperlipidemia 05532980 E78.5 Family his tory of Myocardial infarction 179729111 Z82.49 Gastroesop hageal reflux disease without esophagitis 670391497 K21.9 Essential hypertension 68371568 I10 Obesity 790528763 E66.9 Snoring 82953866 R06.83 [id number] [place] [address] 04/19/2020 14:32:42 04/19/2020 15:40:54 Adult health examination 890732624 Z00.00 Type 2 chidi betes mellitus without complication 552294211 E11.9 Hyperlipidemia 36397158 E78.5 Gastroesop hageal reflux disease without esophagitis 980250677 K21.9 Essential hypertension 95500068 I10 Obesity 406475406 E66.9 Snoring 86021386 R06.83 Coronary arteriosclerosis in [place] artery 5061755439 107 I25.10 Foot callus 725654745 L8 4 [id number] CYNTHIA LUGO MD [address] [address] 01/13/2021 12:41:18 01/13/2021 13:33:48 Type 2 diabetes mellitus without complication 729830899 E11.9 Hyperlipidemia 38857311 E78.5 Gastroesop hageal reflux disease without esophagitis 296062022 K21.9 Essential hypertension 95091040 I10 Obesity 501517843 E66.9 Coronary arteriosclerosis in [place] artery 3141576233 107 I25.10 Balanitis 25832664 N48.1 Health Concerns Section Related Observation LastModified by Organization Detai ls LastModified Time None Recorded Concern Status LastModified by Organization Details LastModified Time None Recorded Advance Directives Directive None Recorded Payers Insurance Date Sequence Insurance Name Policy Number Policy Darby Covered Member ID Darby Member ID Guarantor Name 05/20/2021 1 [facility] [id number] Erich Hudson [id number] Erich Hudson Notes Date Note Type Note Provider Name and Address Organization Details Recorded Time 0 text/html COVID-19 Symptoms November 2019Reported by PatientUpper Respiratory SymptomsFor contacts and exposure, patient reportsclose proximity with person with covid-19. For severity, patient reportsno pain. For associated symptoms, patient reportsno sputum production,no wheezing,no runny nose,no vomiting,no diarrhea,no body aches,no nausea,no change in mental status,no hypotension, andno tachycardia. For quality, (no cough). For context, (pt has a coworker that tested positive of covid-19). 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 Patient said around June he did develop heart attack and he was hospitalized and at [facility] and he had a cardiac catheter which showed 90% stenosis one of his artery had a stent placed and he was sent for cardiac rehabilitation and been improving. Regarding diabetes mellitus he has been diabetic for the last couple of years, he does take his medication and trying to follow diabetic diet, his blood sugar has been running within good range has not seen an eye doctor for while he did the see a dietitian.his last glycohemoglobin was around 2 months ago according to him Regarding hyperlipidemia patient has been taking atorvastatin and trying to follow low-fat diet, been on atorvastatin since July but the did not have repeat blood works since then. Regarding obesity patient has been trying to diet to lose weight and he lost around 20 pounds since he develop heart attack. Patient does snore during the night does not wake up refreshed in the morning not interested to be referred to have obstructive sleep apnea testing. Regarding GERD has been taking famotidine 20 katheryn which has been helping him. He used to smoke cigarettes but he quit long time ago CYNTHIA LUGO MD [address] [place] [address], [phone], [facility] 02/18/2020 12:56:36 0 text/html White male with PMH of diabetes mellitus obesity history of IA presented today for physical for follow-up regarding diabetes mellitus patient he dose try to take her medication and trying to follow diabetic diet he did check blood sugar occasionally last time checked her BS was last week. I did refer her previously to see eye doctor but didn't have chance to go because of Covid 19. Regarding hypertension currently taking his medication and trying to follow low-salt diet. Regarding hyperlipidemia patient has been taking his atorvastatin and trying to follow low-fat diet he did not have lipid panel recheck since he was started on atorvastatin. Patient does snore during the night does not wake up refreshed in the morning interested to be checked for sleep apnea. Patient thinks that he did have both hepatitis A and B vaccine, he did get his flu shot last week and interested in getting the pneumonia vaccine. Regarding GERD taking Pepcid as needed. CYNTHIA LUGO MD [address] [place] [address], [phone], [facility] 04/23/2020 21:10:12 1 text/html Groin PainReported by PatientHPIFor associated symptoms, patient reportstendernessbut reportsno swelling,no dysuria,no frequency issues,no hematuria,no nocturia, andno back pain. For quality, patient reportsdull(itching). For severity, patient reportsmild. For duration, patient reportsconstant. For context, patient reportssexual intercourse. For location, (on penis). For onset/timing, (symptoms started 1 week ago.). For alleviating factors, (nothing). For aggravating factors, (clothing). white male with PMH of diabetes mellitus hyperlipidemia GERD hypertension presenting today complaining that has rash of his penis also small abrasion at the base of the head of penis started a week ago, he is sexually active with his and his been monogamous, no dysuria. Regarding diabetes mellitus I have not seen him since March and he is due for repeat hemoglobin A1c.he dose take his medication. Regarding hypertension patient has been taking his medication and trying to follow low-salt diet. Regarding history of CAD history of IA currently under care of Dr. Starr cardiology who sees him on a regular basis according to him. Regarding hyperlipidemia Patient has been taking his atorvastatin and trying to follow low-fat diet and he is due for repeat lab. Regarding GERD he does take his medications seems controlling his symptoms well. Regarding obesity patient had gained around 4 pounds last visit. CYNTHIA LUGO MD [address] [place], [address], [facility] 01/17/2021 05:05:48
--- OUTSIDE RECORDS SUMMARY | 2025-07-08 15:56 | XMS_ITS | Encounter Summary ---
Author Organization [employer] ([place], [place], [place], [place], [place]) Address [address] [place] [address] Care Team Providers Care Or Director Name Role Phone Unavailable Primary Care Provider Unavailabl e Encounter Details Date Type Department Care Team (Late st Contact Info) Description 08/15/2019 Transcribed Document [facility] Cardiology [address] [phone] [place] [address] [place] [address] [address] [place] [address] Social History Tobacco Use Types Packs/Day Years Used Date Smoking Tobacco: Never Assessed Sex and Gender Information Value Date Recorded Sex Assigned at Not on file Legal Sex Male 6:48 PM CDT Gender Identity Not on file Sexual Orientation Not on file documented as of this encounter Miscellaneous Notes * Cerner Conversion Note - Arcelia Daniel MD - 08/15/2019 9:17 AM EST Patient: ERICH CHAO Age: 39 years Sex: Male : 1980 Associated Diagnoses: None Author: CHRIS RODRIGUEZ, CLINICAL ASST-INT Basic Information Lay Out Maker: Kianna Chief Complaint chest pain History of Present Illness 39 year old male with history of HTN, HLD, DMII and CAD s/p NSTEMI 06/16/2019 with ROYA to Cx and 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 Patient presents to the ER with complaints of intermittent chest pain since yesterday. His troponin is negative X2. Ddimer negative. He is currently chest pain free. No complaints of SOA. He describes the pain that he was having earlier as a substernal burning sensation that began after eating. No N/V. He has been going to cardiac rehab and he has been able to walk on the treadmill or use the elliptical for 20 minutes without complaints of chest pain or SOA. Review of Systems Constitutional: Negative except as documented in history of present illness. Eye: Negative. Ear/Nose/Mouth/Throat: Negative. Respiratory: Negative except as documented in history of present illness. Cardiovascular: Negative except as documented in history of present illness. Gastrointestinal: Negative except as documented in history of present illness. Genitourinary: Negative. Hematology/Lymphatics: Negative. Endocrine: Negative except as documented in history of present illness. Immunologic: Negative. Musculoskeletal: Negative. Integumentary: Negative. Neurologic: Alert and oriented X4. Psychiatric: Negative. All other systems are negative Health Status Allergies (1) Active Reaction No Known Allergies None Documented Home Medications (7) Active aspirin 81 mg oral [...] BID Vitamin B-12 1 Tab, Oral, Daily Current medications: No qualifying data available Problem list: Active Problems (6) Allergic rhinitis At risk for sleep apnea CAD (coronary artery disease) DM2 (diabetes mellitus, type 2) Dyslipidemia (high LDL; low HDL) Severe obesity (BMI 35.0-35.9 with comorbidity) Histories No education data available. Social & Psychosocial Habits Alcohol 06/16/2019 Alcohol Use History, Social Habits No Substance Abuse 06/16/2019 Recreational Drug Use History No Tobacco 06/16/2019 Smoking Status Never (less than 100 in l Past Medical History: Active Type 2 diabetes mellitus (603761999) HTN - Hypertension (3203925621) HLD - Hyperlipidemia (364055854) CAD - Coronary artery disease (4977818252) Family History: Coronary heart disease Grandfather (M) Grandmother (M) Procedure history: Cardiac Stent on 06/16/2019 at 39 Years. Comments: 06/27/2019 10:03 ELOINA VILA RN RESULTS OF INTERVENTION: At angiography, the middle circumflex contained critical stenosis of greater than 90%. Following PTCA and drug-eluting stent placement, this is reduced to 0% with BLANCA-3 flow and no residual dissection. CONCLUSION: Opd-[id number] myocardial infarction due to the combination of severe circumflex stenosis and chronic total occlusion of the right coronary artery, which is dominant. Eye surgery. Right ankle surgery for fx, pinning removed. Tonsils. Physical Examination VS/Measurements Vitals Signs (last 24 hrs) Last Charted Minimum Maximum Temp 98.7 (AUG 15 07:12) 98.7 (AUG 15 07:12) 98.7 (AUG 15:12) Periph HR 75 (AUG 15 07:12) 75 (AUG 15 07:12) 75 (AUG 15:12) Resp Rate 16 (AUG 15 07:12) 16 (AUG 15 07:12) 16 (AUG 15 07:12) SBP 117 (AUG 15 07:12) 117 (AUG 15 07:12) 117 (AUG 15 07:12) DBP 73 (AUG 15 07:12) 73 (AUG 15 07:12) 73 (AUG 15 07:12) SpO2 97 (AUG 15 07:12) 97 (AUG 15 07:12) 97 (AUG 15 07:12) General: Alert and oriented, No acute distress. Eye: Pupils are equal, round and reactive to light, Extraocular movements are intact. HENT: Normocephalic, Oral mucosa is moist. Neck: Supple, Non-tender, No jugular venous distention. Respiratory: Lungs are clear to auscultation, Respirations are non-labored, Breath sounds are equal, Symmetrical chest wall expansion. Cardiovascular: Normal rate, Regular rhythm, No murmur, No gallop, Good pulses equal in all extremities, Normal peripheral perfusion, No edema. Gastrointestinal: Soft, Non-tender, Non-distended, Normal bowel sounds. Genitourinary: Exam deferred. Musculoskeletal: Normal range of motion, Normal strength, No deformity. Integumentary: Warm, Dry, [place], Intact, No rash. Neurologic: Alert, Oriented, No focal deficits. Psychiatric: Cooperative, Appropriate mood & affect. Review / Management AUG 15 07:15 138 104 15 / H 113 3.9 31 1.00 \ AUG 15 07:15 \ 16.0 / 8.2 224 / 46.3 \ Cardiac Markers (Current Encounter/Past 24 Hours) ProBNP 43 pg/mL 08/15/2019 07:46 Results review: Labs (Last four charted values) [...] 247 (AUG 15) Troponin <0.015 (AUG 15) . [facility] 06/16/2019; Kianna CONCLUSION: Eyc-QW-idbnqianl myocardial infarction due to the combination of severe circumflex stenosis and chronic total occlusion of the right coronary artery, which is dominant. Impression and Plan IMPRESSION: Chest pain Troponin negative X2. CAD recent NSTEMI 06/16/2019; ROYA to Cx. 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 HTN HLD DMII PLAN: Okay to discharge home. Will arrange for outpatient nuclear exercise (treadmill) stress for tomorrow morning at 0800 here at [facility]. Patient to follow-up with Dr. Hutchison as an outpatient as scheduled. documented in this encounter Plan of Treatment Not on file documented as of this encounter Visit Diagnoses Not on filedocumented in this encounter
--- OUTSIDE RECORDS SUMMARY | 2025-07-08 15:56 | XMS_ITS | Encounter Summary ---
Author Organization [employer] ([place], [place], [place], [place], [place]) Address [address] [place] [address] Care Team Providers Care Aerodynamics Engineer Name Role Phone Unavailable Primary Care Provider Unavailabl e Encounter Details Date Type Department Care Team (Late st Contact Info) Description 07/05/2019 Transcribed Document [facility] Cardiology [address] [phone] Jared Hutchison MD [address] [facility] [address] [place] [address] Social History Tobacco Use Types Packs/Day Years Used Date Smoking Tobacco: Never Assessed Sex and Gender Information Value Date Recorded Sex Assigned at Not on file Legal Sex Male 6:48 PM CDT Gender Identity Not on file Sexual Orientation Not on file documented as of this encounter Miscellaneous Notes * Cerner Conversion Note - Jared Hutchison MD - 07/05/2019 5:39 PM EST DATE OF SERVICE: 06/30/2019 PRIMARY CARE PHYSICIAN: Sushila Butt MD INDICATION: Coronary artery disease. PROTOCOL: Low-dose, high-dose technetium-99m same-day protocol with standard Arturo treadmill exercise stress. FINDINGS: 1. The patient exercised for 9 minutes and 14 seconds reaching a maximum heart rate of 153 beats per minute (target 152 beats per minute) and a maximum blood pressure of 180/87. There was no complaint of chest pain. 2. Baseline ECG is normal. ECG during treadmill stress shows less than [address]-segment change. No significant arrhythmia. 3. Stress images show uniform myocardial uptake. 4. Rest images show uniform myocardial uptake. 5. Gated images show LVEF 60%. CONCLUSION: 1. Normal exercise myocardial perfusion scan showing no evidence of ischemia. 2. Normal LV ejection fraction. 3. Good exercise tolerance. /[id number] MD SHERRY Lopez/ANIVAL / SHERRY / MODL /[id number] documented in this encounter Plan of Treatment Not on file documented as of this encounter Visit Diagnoses Not on filedocumented in this encounter
--- OUTSIDE RECORDS SUMMARY | 2025-07-08 15:56 | XMS_ITS | Encounter Summary ---
Author Organization [employer] ([place], [place], [place], [place], [place]) [address] 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 Farm Name Role Phone Unavailable Primary Care Provider Unavailabl e Encounter Details Date Type Department Care Team (Late st Contact Info) Description 08/15/2019 Transcribed Document [facility] [place] [address] [place] [address] ProviderLayton MD [address] [place] [place], [place] [address] Social History Tobacco Use Types Packs/Day Years Used Date Smoking Tobacco: Never Assessed Sex and Gender Information Value Date Recorded Sex Assigned at Not on file Legal Sex Male 6:48 PM CDT Gender Identity Not on file Sexual Orientation Not on file documented as of this encounter Miscellaneous Notes * [employer]ner Conversion Note - Historical ProviderMD - 08/15/2019 12:14 PM MATERIALS TECHNICIAN ED Discharge Entered On: 08/15/2019 12:14 EST Performed On: 08/15/2019 12:14 EST by ARABELLA JARRETT RN Discharge Process Patient Disposition : Discharge Patient Education Completed : Yes Teaching Evaluation : Verbalizes understanding IV Discontinued : Yes Nursing Documentation Completed : Yes ARABELLA JARRETT RN - 08/15/2019 12:14 EST ED Discharge Discharge To : Home with ambulatory/outpatient follow-up Mode Of Departure : Ambulatory ARABELLA JARRETT RN - 08/15/2019 12:14 EST Electronically signed by Madina [facility] Conversion Blanket Weaver Cerner at 11/09/2022 12:47 PM CDT documented in this encounter Plan of Treatment Not on file documented as of this encounter Visit Diagnoses Not on filedocumented in this encounter
--- OUTSIDE RECORDS SUMMARY | 2025-07-08 15:56 | XMS_ITS | Encounter Summary ---
Author Organization [employer] ([place], [place], [place], [place], [place]) Address [address] [place] [address] Care Team Providers Care Armature Tester Name Role Phone Unavailable Primary Care Provider Unavailabl e Encounter Details Date Type Department Care Team (Late st Contact Info) Description 08/15/2019 Transcribed Document [facility] [place] Family [place] [address] [place] [address] ProviderLayton MD [facility] [address] [place], [place] [address] Social History Tobacco Use Types Packs/Day Years Used Date Smoking Tobacco: Never Assessed Sex and Gender Information Value Date Recorded Sex Assigned at Not on file Legal Sex Male 6:48 PM CDT Gender Identity Not on file Sexual Orientation Not on file documented as of this encounter Miscellaneous Notes * Cerner Conversion Note - Layton ProviderMD - 08/15/2019 7:03 AM SEE SUPERVISOR ED Assessment Entered On: 08/15/2019 7:12 EST Performed On: 08/15/2019 7:11 EST by SAMMY AGUILAR RN ED Quick Look Assessment Level of Consciousness : Alert, Awake SAMMY AGUILAR RN - 08/15/2019 7:11 EST ED General-Functional Assess Information Obtained From : Patient Preferred Communication Mode : Verbal Communication Barrier : None Primary Language : Libyan Any Spiritual/Cultural Needs or Requests : No Currently in Unsafe Situation : No SAMMY AGUILAR RN - 08/15/2019 7:11 EST Social Habits Smoking Status : 4 or less cigarettes(less than 1/4 pack)/day in last 30 days Smokeless Tobacco Status : Never Desires Tobacco Cessation Medication : Yes Desires Tobacco Cessation Calc : 1 SAMMY AGUILAR RN - 08/15/2019 7:11 EST Social History (As Of: 08/15/2019 07:12:03 EST) Tobacco: Never (less than 100 in lifetime) Smoking Status. (Last Updated: 06/16/2019 11:08:40 EST by CELESTINO RASMUSSEN RN) Alcohol: Alcohol Use History No. (Last Updated: 06/16/2019 11:08:43 EST by CELESTINO RASMUSSEN RN) Substance Abuse: Drug Use Hx: No. (Last Updated: 06/16/2019 11:08:47 EST by CELESTINO RASMUSSEN RN) EENT Assessment EENT Assessment WDL : [facility] SAMMY AGUILAR RN - 08/15/2019 7:11 EST Cardiovascular ASMT, ED Cardiovascular Assessment WDL : [facility] with exceptions Cardiovascular Symptoms : Chest discomfort at rest SAMMY AGUILAR RN - 08/15/2019 7:11 EST Pulses Grid Radial Pulse, Left : 2+ normal Radial Pulse, Right : 2+ normal SAMMY AGUILAR RN - 08/15/2019 7:11 EST Respiratory Respiratory Assessment WDL : [facility] SAMMY AGUILAR RN - 08/15/2019 7:11 EST Breath Sounds Assessment Grid All Lobes Breath Sounds : Clear KIM : Clear LLL : Clear RUL : Clear RML : Clear RLL : Clear SAMMY AGUILAR RN - 08/15/2019 7:11 EST Gastrointestinal ED Gastrointestinal Assessment WDL : [facility] SAMMY AGUILAR RN - 08/15/2019 7:11 EST Genitourinary Assessment, ED Genitourinary Assessment WDL : [facility] SAMMY AGUILAR RN - 08/15/2019 7:11 EST Musculoskeletal Musculoskeletal Assessment WDL : [facility] SAMMY AGUILAR RN - 08/15/2019 7:11 EST Integumentary Assessment Integumentary Assessment WDL : [facility] SAMMY AGUILAR RN - 08/15/2019 7:11 EST Neurologic ASMT, ED Neurologic Assessment WDL : [facility] Orientation : Oriented x 4 SAMMY AGUILAR RN - 08/15/2019 7:11 EST Electronically signed by Madina [facility] Conversion Material Handler 1St Shift [employer] at 11/09/2022 1:07 PM CDT documented in this encounter Plan of Treatment Not on file documented as of this encounter Visit Diagnoses Not on filedocumented in this encounter
--- OUTSIDE RECORDS SUMMARY | 2025-07-08 15:56 | XMS_ITS | Encounter Summary ---
Author Organization [employer] ([place], [place], [place], [place], [place]) Address [address] [place] [address] Care Team Providers Care Hot Car Operator Name Role Phone Unavailable Primary Care Provider Unavailabl e Encounter Details Date Type Department Care Team (Late st Contact Info) Description 08/15/2019 Transcribed Document [facility] [place] [facility] [place] [address] ProviderLayton MD [facility] [place] [address] Social History Tobacco Use Types Packs/Day Years Used Date Smoking Tobacco: Never Assessed Sex and Gender Information Value Date Recorded Sex Assigned at Not on file Legal Sex Male 6:48 PM CDT Gender Identity Not on file Sexual Orientation Not on file documented as of this encounter Miscellaneous Notes * [employer] Conversion Note - Historical ProviderMD - 08/15/2019 11:49 AM DIRECTOR OF AGRICULTURE Electronically signed by Madina [facility] Conversion School Operations Manager Cerner at 11/09/2022 12:53 PM CDT documented in this encounter Plan of Treatment Not on file documented as of this encounter Visit Diagnoses Not on filedocumented in this encounter
--- NOTE | 2025-07-08 15:58 | ECG_ITS ---
APPROVED REPORT Exam: Resting ECG HR:100 bpm ECG Measurements Heart Rate 100 AXES MI 146 P 51 QRSd 93 QRS 50 QT 353 T 69 QTc 410 Conclusion SINUS TACHYCARDIA MODERATE ST DEPRESSION [0.05+ mV ST DEPRESSION] ABNORMAL ECG UNCONFIRMED REPORT Electronically signed by : LING ROSS, 07/09/2025 00:18:08
[2025-07-08 16:05] LABS: Hematocrit 48.2 % (42.0-52.0); Hemoglobin 17.1 g/dL (14.1-18.0); Immature Granulocytes % 0.4 %; Mean Corpuscular HGB Conc 35.5 g/dL (31.8-35.4); Mean Corpuscular Hemoglobin 32.3 pg (27.0-31.2); Mean Corpuscular Volume 91.1 fl (80-94); Nucleated Red Blood Cells % 0 %; Platelet Count 223 K/mm3 (142-424); Red Blood Count 5.29 M/mm3 (4.60-6.20); Red Cell Distribution Width-SD 38.1 fL; White Blood Count 9.9 K/mm3 (4.8-10.8)
[2025-07-08 16:06] VITALS: BP 144/87; PULSE 115; RESP 16; O2SAT 95
[2025-07-08] MEDS: ALBUTEROL 0.083% 2.5 MG/3 ML NEB IH (16:06)
[2025-07-08 16:13] LABS: Microscopic, Urine URINE MICROSCOPIC (MICROSCOPIC)
[2025-07-08 16:14] LABS: Alanine Aminotransferase 50 U/L (12-78); Albumin Level 4.3 g/dl (3.5-5.0); Albumin/Globulin Ratio 1.3 (1.1-1.8); Alkaline Phosphatase 73 U/L (38-126); Anion Gap 13.2 mEq/L (5-15); Aspartate Amino Transferase 47 U/L (17-59); Bilirubin,Total 0.8 mg/dl (0.2-1.3); Blood Urea Nitrogen 13 mg/dl (9-20); Calcium 9.4 mg/dl (8.4-10.2); Carbon Dioxide 30 mmol/L (22.0-30.0); Chloride 96 mmol/L (98-107); Creatinine Clearance Estimated 153 mL/min (50-200); Creatinine,Serum 0.90 mg/dl (0.66-1.25); Estimated Glomerular Filt Rate 90 ml/min (>60); GFR (African American) 109 ML/MIN (>60); Globulin 3.2 g/dL (1.3-3.2); Glucose 270 mg/dl (74-100); Potassium 4.2 mmoL/L (3.5-5.1); Sodium 135 mmol/L (136-145); Total Protein,Serum 7.5 g/dl (6.3-8.2)
[2025-07-08 16:16] LABS: Bilirubin,Urine Negative (Negative); Color,Urine YELLOW (Yellow); Glucose,Urine (UA) 3+ (Negative); Ketones,Urine Negative (Negative); Leukocyte Esterase,Urine Negative (Negative); PH,Urine 6.0 (5.0-8.5); Protein,Urine Negative (Negative); Specific Gravity, Urine <= 1.005 (1.005-1.030); Urobilinogen,Urine 0.2 EU/dl (0.2)
[2025-07-08 16:19] LABS: D-Dimer 0.33 ug/mL (0.0-0.5)
[2025-07-08 16:28] LABS: Troponin I < 0.01 ng/ml (0.00-0.034)
[2025-07-08 16:30] VITALS: BP 127/74; PULSE 100; RESP 12; O2SAT 100
[2025-07-08 16:31] LABS: Bacteria,Urine Trace /lpf; Squamous Epithelial Cell,Urine Occasional #/hpf (0-5); WBC,Urine Occasional #/hpf (0-3)
--- NOTE | 2025-07-08 16:56 | ED_ITS ---
<Statement entered by Mayr Burch DO - 07/08/25 23:53> I was consulted by the ROMINA, and we discussed the complexity of problems being addressed. I approve the treatment and management plan for this patient's care in the emergency department, thus performing a substantial portion of the medical decision making. Mary Burch DO Discharge Plan Disposition Patient Disposition: Home, Self-Care Condition: Good Prescriptions Prescriptions: New amoxicillin-pot clavulanate 875-125 mg tablet 1 tab PO Q12H Qty: 20 0RF azithromycin [Zithromax] 250 mg tablet 250 mg PO DAILY 4 Days Qty: 4 0RF Rx Instructions: start on day 2 of therapy albuterol sulfate [Ventolin HFA] 90 mcg/actuation HFA aerosol inhaler 2 inh inhalation Q6H PRN (Reason: shortness of breath or wheezing) Qty: 6.7 0RF No Action metformin 500 mg tablet 500 mg PO BID 30 Days Qty: 60 Patient Comments: indomethacin 50 mg capsule 50 mg PO TID Qty: 60 0RF Rx Instructions: administer with food or milk. Take Medication until symptoms resolve. Referrals Follow up/Referrals: Maria Teresa Frey APRN [Primary Care Provider, Medical] - See instructions Activity Restrictions/Add. Instructions Additional Instructions/Restrictions: You were seen for pneumonia. Return here if you have difficulty breathing or worsening pain. See your PCP this week. Clinical Impressions Clinical Impression: Pneumonia Instructions Patient Instructions: DI for Pneumonia in Adults Print Language Print Language: Khmer Discharge ED Provider: Mary Burch General Adult HPI General Chief complaint: Cough Stated complaint: cough & pain in chest with cough Time Seen by Provider: 07/08/25 15:26 Mode of Arrival: Ambulatory Source of Information: Patient Description of Symptoms (Recalled from ER Triage Doc. by RN): patient presents for worsening cough. he [facility] in [place] last wednesday and was swabbed for flu and tested positive. patient was sent home with prednisone and an antibiotic but the cough has worsened. History of Present Illness HPI narrative: Patient presents complaining of cough for several weeks. He reports that prior to onset of symptoms he was diagnosed with influenza. He has had productive cough with green sputum. He denies any fever. He has been taking steroids and cough syrup. Patient has been experiencing aching in the right chest for 3 days. He reports a stabbing pain with cough MD complaint: Cough Onset (ago): week(s) Location: chest Radiation: non-radiation Severity: moderate Quality: stabbing and aching Consistency: constant Relieving factors: none Exacerbating factors: none Associated symptoms: negative fever/chills Treatments prior to arrival: none Related Data Home Medications ?Medication ?Instructions ?Recorded ?Confirmed metformin 500 mg tablet 500 mg PO BID 30 days #60 ta bs 11/13/17 Previous Rx's ?Medication ?Instructions ?Recorded indomethacin 50 mg capsule 50 mg PO TID #60 caps 11/13 albuterol sulfate 90 mcg/actuation 2 inh inhalation Q6 H PRN shortness 07/08/25 aerosol inhaler (Ventolin HFA) of breath or wheezing # 6.7 grams amoxicillin 875 mg-potassium 1 tab PO Q12H #20 tabs clavulanate 125 mg tablet azithromycin 250 mg tablet 250 mg PO DAILY 4 days #4 t abs 07/08/25 (Zithromax) Allergies Allergy/AdvReac Type Severity Reaction Status Date / Time heparin Allergy blood clot Verified 05/06/24 23:23 [facility] Disclaimer: The information contained in this section may have been updated after the patient was seen, as this information can be updated by other users. Social History (Updated 05/06/24 @ 23:00 by Levi Weinstein MD) Smoking Status: Never smoker alcohol intake: never substance use type: denies use current occupational status: employed Travel in the last 8 weeks?: None Have you lived/traveled outside [place] in past 30 days?: No Contact w/someone who lives/traveled outside [place] past 30 days?: No Exposure to someone with infectious disease in past 14 days?: No Do you have a fever (greater than 100.4 F or 38 C)?: No Have you tested positive for COVID-19?: No Exposed to someone with COVID-19 in past 14 days?: No Do you have a sore throat?: No Do you have a cough?: No Do you have any weakness?: No Do you have any diarrhea?: No Are you experiencing any unusual bleeding?: No Do you have any muscle aches/pain?: No Do you have any abdominal pain?: No Are you experiencing loss of taste or smell?: No Other Medical History Have you received the Flu Vaccine for this season: Yes ROS Obtained: Yes Systems reviewed as appropriate & no additional complaints except as documented Physical Exam General General appearance: alert and in no apparent distress Head Head exam: atraumatic and normocephalic Eye Eye exam: Present normal appearance and EOMI Chest Chest inspection: Present symmetric chest wall rise Respiratory Respiratory exam: Present normal lung sounds bilaterally, wheezes and other (Rhonchi bilateral); Absent stridor Cardiovascular Cardiovascular exam: Present regular rate and normal rhythm; Absent systolic murmur Neurological Exam Neurological exam: Present alert and oriented X3 Psychiatric Psychiatric exam: Present normal affect and normal mood Skin Skin exam: Present warm, dry and intact Medical Decision Making Medical Records Screening: Per USPSTF and CDC recommendations, given the prevalence of disease in our region, it is our hospital?s policy to screen for HIV and viral Hepatitis for all patients aged 18 and over and those with ongoing risk factors. Chris Inquiry Pt receiving controlled substance: No Vital Signs: 07/08/25 15:30 Temperature 98.5 F Temperature Source Oral Pulse Rate [Right Radial] 104 H Respiratory Rate 20 Blood Pressure [Right Arm] 136/70 Blood Pressure Mean [Right Arm] 92 Blood Pressure Source [Right Arm] Automatic Cuff Blood Pressure Position [Right Arm] Sitting 02 Sat by Pulse Oximetry 95 Oxygen Delivery Method Room Air Lab Data Lab Results 07/08/25 15:56: WBC 9.9, RBC 5.29, Hgb 17.1, Hct 48.2, MCV 91.1, MCH 32.3 H, M CHC 35.5 H, RDW 11.4 L, Plt Count 223, MPV 9.2, Neut % (Auto) 66.4, Lymph % (Auto) 25.4, [place] % (Auto) 6.2, Eos % (Auto) 1.2, Baso % (Auto) 0.4, Neut # (Auto) 6.6, Lymph # (Auto) 2.5, [place] # (Auto) 0.6, Eos # (Auto) 0.1, Baso # (Auto) 0.0, D-Dimer 0.33, Sodium 135 L, Potassium 4.2, Chloride 96 L, Carbon Dioxide 30, Anion Gap 13.2, BUN 13, Creatinine 0.90, Estimated Creat Clear 153, Estimated GFR 90, Est GFR ( Amer) 109, Glucose 270 H, Calcium 9.4, Total Bilirubin 0.8, AST 47, ALT 50, Alkaline Phosphatase 73, Troponin I < 0.01, Total Protein 7.5, Albumin 4.3, Globulin 3.2, Albumin/Globulin Ratio 1.3 07/08/25 16:05: Urine Color Yellow, Urine Appearance Clear, Urine pH 6.0, Ur Specific [place] <= 1.005, Urine Protein Negative, Urine Glucose (UA) 3+, Urine Ketones Negative, Urine Blood Negative, Urine Nitrate Negative, Urine Bilirubin Negative, Urine Urobilinogen 0.2, Ur Leukocyte Esterase Negative, Urine RBC None, Urine WBC Occasional, Ur Squamous Epith Cells Occasional, Urine Bacteria Trace 07/08/25 15:56 07/08/25 15:56 Orders (Tests/Meds): ED MEDICATIONS Discontinued Medications Generic Name Dose Route Start Last Admin Trade Name Freq PRN Reason Stop Dose Admin Albuterol Sulfate 2.5 mg 07/08/25 15:45 07/08/25 16:06 Albuterol 0.083% 2.5 Mg/3 Ml Neb IH 07/08/25 15:46 2.5 mg ONCE ONE Administration Amoxicillin/Clavulanate Potassium 1 each 07/08/25 16:50 Amoxicillin/Clavulanate Potassium 875/125mg Tablet PO 07/08/25 16:51 ONCE ONE Azithromycin 500 mg 07/08/25 16:50 Azithromycin 250mg Tablet PO 07/08/25 16:51 ONCE ONE ORDERS Category Date Time Status Chest XR 2 view (NOT portable) [XR chest 2V] Stat Exams 07/08/25 15:45 Completed CBC w/Auto Diff [Complete Blood Count Auto Diff] Stat Lab 07/08/25 15:56 Completed CMP [Comprehensive Metabolic Panel] Stat Lab 07/08/25 15:56 Completed D-Dimer Stat Lab 07/08/25 15:56 Completed Mini Respiratory Panel Stat Lab 07/08/25 15:37 Received Trop I [Troponin I] Stat Lab 07/08/25 15:56 Completed Troponin I Q3H Lab 07/08/25 19:00 Ordered Troponin I Q3H Lab 07/08/25 22:00 Ordered UA [Urinalysis and Microscopic] Stat Lab 07/08/25 16:05 Completed Medical Decision Narrative: Patient presents with cough with productive sputum as well as right sided chest pain. He is afebrile and slightly tachycardic on exam. He does have wheezing and rhonchi on exam. Symptoms most consistent with pneumonia or bronchitis, however given his history of CABG and pulmonary embolism will obtain D-dimer, troponin, EKG. Will also obtain chest x-ray, CBC, CMP. Workup reveals right sided pneumonia. D-dimer is negative as well as troponin. EKG unremarkable. Pain has been ongoing for 3 days, serial troponins are not indicated. Patient will be started on Augmentin, Zithromax and Ventolin. Advised to return to the emergency department for worsening symptoms and instructed to follow-up with his PCP this week Critical Care Critical Care Time Critical Care Time: No
[2025-07-08 17:00] VITALS: BP 134/83; PULSE 102; RESP 17; O2SAT 95
[2025-07-08] MEDS: AMOXICILLIN/CLAVULANATE POTASSIUM 875/125MG TABLET 1 EACH PO (17:04)
[2025-07-08] MEDS: AZITHROMYCIN 250MG TABLET 500 MG PO (17:04)
[2025-07-08 17:13] VITALS: BP 134/83; PULSE 115; RESP 21; TEMP 36.8; O2SAT 98
== END 2025-07-08 17:14 | disposition home or self-care (01) ==
PROVIDERS: Physician Assistant; Emergency Provider Student in an Organized Health Care Education/Training Program; PCP Nurse Practitioner
DX: J18.9 Pneumonia, unspecified organism (principal); Z95.1 Presence of aortocoronary bypass graft; Z86.711 Personal history of pulmonary embolism; Z88.8 Allergy status to other drugs, medicaments and biological substances
CPT/HCPCS: 71046; 80053; 81001; 84484; 85025; 85378; 87631; 93005; 99284